=== PATIENT | male | born 1945 | race Caucasian/White ===

== ENCOUNTER 2017-01-30 06:44 | Day surgery (SDC) | payer MEDICARE ==
[~2017-01-30] VITALS: Ht 180.3 cm; Wt 86.2 kg
--- NOTE | ~2017-01-30 | OP ---
PATIENT NAME: JAVI MORELOS MEDICAL RECORD: [id number] :43 LOCATION:D.OPS ADMISSION DATE: SURGEON: SANTOS JOSEPH MD DATE OF OPERATION: 01/30/2017 DATE OF OPERATION: 01/30/2017 PREOPERATIVE DIAGNOSES: 1. End-stage renal disease. 2. Malfunctioning left upper extremity AV fistula. 3. Hypertension. 4. Diabetes mellitus. 5. Organic heart disease. POSTOPERATIVE DIAGNOSES: 1. End-stage renal disease. 2. Malfunctioning left upper extremity AV fistula. 3. Hypertension. 4. Diabetes mellitus. 5. Organic heart disease. PROCEDURE: Left upper extremity AV jump graft between proximal antecubital fistula and left axillary vein (4 x 7 mm tapered graft). SURGEON: Santos Joseph MD. REPORT OF PROCEDURE: The patient's left upper extremity was prepped and draped in sterile fashion. Ultrasound was used to inspect the patient's vein and fistula. The proximal fistula was popping and appeared to be flowing appropriately but it branched off and had multiple very small branches coming up through the cephalic region, which is causing him not to function appropriately. The patient had a large axillary vein. We went ahead and made an incision longitudinally in the upper medial arm and dissected out the patient's axillary vein, which was quite large in caliber. We put vessel loops proximally and distally around this and left this in place, we then made a longitudinal incision overlying the patient's proximal fistula just above the antecubital space. We dissected down through the fistula and noted that it had a good palpable thrill. We tied off the branches to this fistula and placed a vessel loop proximally. A 4 x 7 mm tapered graft was inserted and tunneled between these 2 incisions sites. The 4-mm side was cut with a beveled tip. We then transected the artery after a total of 5000 mL of heparin was given IV. An end-to-end anastomosis was performed of the graft to the fistula using a 7-0 Prolene. There was good approximation of the tissue and there was good flow through the vessel. We then cut the 7-mm end of the catheter with a beveled tip and performed an end-to-side anastomosis after a venotomy was made in the proximal axillary vein. This was again performed with a running 7-0 Prolene. At the conclusion of this, we had good pulsatile thrill flow through the vessel and a palpable thrill proximally in the fistula. There was no sign of any active bleeding. We then irrigated out the wound with normal saline. The subcutaneous tissues were reapproximated with interrupted 3-0 Vicryls and the skin was closed with running subcutaneous 5-0 Monocryl. COMPLICATIONS: None. CONDITION: Stable. OPERATIVE REPORT [id number] JAVI MORELOS ANESTHESIA: General endotracheal and local. BLOOD LOSS: 50 mL. TRANSINT:[id number] Voice Confirmation ID: [id number] DOCUMENT ID: [id number] SANTOS JOSEPH MD CC: MARILUZ RUBY MD [id number] DICTATION DATE: 01/30/17 1147 PAYROLL PROCESSOR: 01/30/17 2108 [facility] 01/30/17 [address] [place] [address]
[2017-01-30 07:50] LABS: BASOPHILS 0.8 % (0-2); EOSINOPHILS 5.6 % (0-7); HEMATOCRIT 39.9 % (42.0-54.0); IMMATURE GRANULOCYTES 0.3 % (0-5); LYMPHOCYTES 27.2 % (15-50); MCH 29.9 pg (26.0-34.0); MCHC 30.1 g/dL (31.0-37.0); MCV 99.3 fL (80.0-100.0); MEAN PLATELET VOLUME 9.3 fL (7.4-10.4); MONOCYTES 11.9 % (2-11); NEUTROPHILS 54.2 % (40-80); PLATELET COUNT 348 10x3/uL (130-400); RBC 4.02 10x6/uL (4.20-6.10); RDW 14.7 % (11.5-14.5); WBC 11.3 10x3/uL (4.8-10.8)
[2017-01-30 07:59] LABS: INR 1.04 (0.85-1.17); PROTIME 13.4 SECONDS (11.6-15.0)
[2017-01-30 08:00] LABS: APTT 31.8 SECONDS (22.8-39.4)
[2017-01-30 08:01] LABS: ANION GAP 13.6 mmol/L (8-16); CALCIUM 9.1 mg/dL (8.5-10.1); CARBON DIOXIDE 27.9 mmol/L (21.0-32.0); CREATININE - SERUM 4.5 mg/dL (0.6-1.3); POTASSIUM - SERUM 4.5 mmol/L (3.5-5.1)
[2017-01-30 08:48] VITALS: Ht 180.3 cm; Wt 86.2 kg
[2017-01-30] MEDS ORDERED: METOPROLOL TAR100 M1 PO (08:55)
[2017-01-30] MEDS ORDERED: FLOMAX0.4 MG PO (08:56)
[2017-01-30] MEDS ORDERED: LIPITOR10 MG PO (08:56)
[2017-01-30] MEDS ORDERED: RENVELA800 MG PO (08:57)
[2017-01-30] MEDS ORDERED: RESTORIL22.5 MG PO (08:57)
[2017-01-30] MEDS ORDERED: BAYER CHEWABLE81 MG PO (08:58)
[2017-01-30] MEDS ORDERED: RENA-VITE TABL0.8 MG PO (08:58)
[2017-01-30] MEDS ORDERED: ULTRAM50 MG PO (08:59)
[2017-01-30] MEDS ORDERED: MELATONIN 3 MG1 TAB PO (08:59)
[2017-01-30] MEDS ORDERED: ZOFRAN4 MG PO (08:59)
[2017-01-30] MEDS ORDERED: COLACE100 MG PO (09:00)
[2017-01-30] MEDS ORDERED: PROAIR HFA8.5 GM INH (09:00)
[2017-01-30] MEDS ORDERED: ZOLOFT25 MG PO (09:01)
[2017-01-30] MEDS ORDERED: HYDROCODONE-APA1 TAB PO (11:38)
== END 2017-01-30 13:30 | disposition home or self-care (01) ==
LOC: D.OPS 06:44
PROVIDERS: Surgery
DX: T82.898A Other specified complication of vascular prosthetic devices, implants and grafts, initial encounter (principal); E11.22 Type 2 diabetes mellitus with diabetic chronic kidney disease; I13.11 Hypertensive heart and chronic kidney disease without heart failure, with stage 5 chronic kidney disease, or end stage renal disease; N18.6 End stage renal disease; Z99.2 Dependence on renal dialysis; Z01.812 Encounter for preprocedural laboratory examination

== ENCOUNTER 2017-08-04 15:54 | Inpatient (IN) | payer MEDICARE, MEDICAID ==
[~2017-08-04] VITALS: Ht 180.3 cm; Wt 91.1 kg
--- NOTE | ~2017-08-04 | HEMODYNAMI ---
PATIENT:JAVI MORELOS MEDICAL RECORD: [id number] : 43 LOCATION:[place] [address] ADMISSION DATE: 08/04/17 Generatedon:08/05/201715:32 Patient name: JAVI MORELOS Patient #: [id number] SSN: : Date of study: 08/05/2017 Page: Of Hemodynamic Procedure Report Patient Data Patient Demographics Procedure consent was obtained First Name: JAVI Gender: Male Last Name: TAMY : 1945 Patient #: [id number] Age: 71 year(s) Race: Unknown Additional ID: [id number] Contact details [address]: [address] [place] [address] State: [place] City: [place] Zip code: [address] Past Medical History Allergies: No known allergies Admission Admission Data Admission Date: 08/04/2017 Admission Time: 23:21 Room #: [facility] Procedure Procedure Types Cath Procedure Peripheral Cath Diagnostic Procedure Cath Peripheral Fistula Mechanical Thrombectomy Procedure Description Procedure Date Procedure Date: 08/05/2017 Procedure Start Time: 15:02 Procedure Staff Name Function Michael Lynch MD Performing Physician Bibiana Hutchins RT Monitor Kong Jeronimo RT Scrub Alexus Meier RN Nurse Bibiana Hutchins RT Plastic Process Technician Procedure Data Cath Procedure Fluoroscopy Diagnostic fluoroscopy Total fluoroscopy Time: 3.6 time: 3.6 min min Diagnostic fluoroscopy Total fluoroscopy dose: 45 dose: 45 mGy mGy Contrast Material Contrast Material Type Amount (ml) Isovue 300 65 Procedure Medications Medication Administration Route Dosage Lidocaine 1% added to field 20 Oxygen NC 3 l/min Heparin Flush Bag added to field 2 bags (1000units/500ml NS) Fentanyl I.V. 50 mcg Versed I.V. 1 mg Fentanyl I.V. 50 mcg Versed I.V. 1 mg Hemodynamics Rest Heart Rate: 66 (bpm) Snapshots Pre Cath Intra NCS Post Cath Vital Signs Time Heart Resp SPO2 etCO2 NIBP (mmHg) Rhythm Pain Sedation Rate (ipm) (%) (mmHg) Status Level (bpm) 14:17:55 62 13 92 8.2 Measuring NSR 0 (11) 10(A) , No pain 14:18:25 73 18 98 8.9 129/66(104) NSR 0 (11) 10(A) , No pain 14:22:41 64 13 99 8.9 144/73(113) NSR 0 (11) 10(A) , No pain 14:27:03 70 10 98 9.7 134/70(105) NSR 0 (11) 10(A) , No pain 14:31:26 63 18 98 18.7 142/66(106) NSR 0 (11) 10(A) , No pain 14:36:25 59 24 96 0 Measuring NSR 0 (11) 10(A) , No pain 14:36:35 60 20 95 0 127/61(97) NSR 0 (11) 10(A) , No pain 14:40:55 65 14 97 0 132/66(112) NSR 0 (11) 10(A) , No pain 14:45:15 62 14 95 2.9 144/68(118) NSR 0 (11) 10(A) , No pain 14:50:14 59 13 97 0 Measuring NSR 0 (11) 10(A) , No pain 14:50:16 62 13 97 0 141/62(102) NSR 0 (11) 10(A) , No pain 14:55:09 61 9 98 5.9 139/67(121) NSR 0 (11) 10(A) , No pain 14:59:31 62 13 98 0 154/72(108) NSR 0 (11) 10(A) , No pain 15:03:58 65 16 97 14.2 143/68(115) NSR 0 (11) 10(A) , No pain 15:08:24 61 10 95 132/67(114) NSR 0 (11) 10(A) , No pain 15:12:42 60 18 94 35.1 131/61(97) NSR 0 (11) 10(A) , No pain 15:17:04 68 12 95 39.6 123/49(113) NSR 0 (11) 10(A) , No pain 15:21:22 63 18 95 0 113/58(92) NSR 0 (11) 10(A) , No pain 15:25:36 64 8 94 14.9 112/57(77) NSR 0 (11) 10(A) , No pain 15:29:48 64 14 93 26.2 132/64(104) NSR 0 (11) 10(A) , No pain Medications Time Medication Route Dose Verified Delivered Reason Notes Effe ctiveness by by 13:47:26 Lidocaine 1% added 20ml Alexus Rodriguez for local to vial Hardeep Lynch anesthetic field DELISA SPIVEY 13:47:57 Oxygen NC 3 Alexus used for l/min Hardeep Lynch partition assembler MD 13:48:12 Heparin Flush added 2 Alexus used for Bag to bags Hardeep Lynch procedure (1000units/500ml field RN NS) 15:04:46 Fentanyl I.V. 50 Michael Vaughan for mcg Lynch Hardeep RN sedation 15:04:56 Versed I.V. 1 mg Michael Vaughan for Lynch Hardeep RN sedation 15:09:47 Fentanyl I.V. 50 Michael Vaughan for mcg Lynch Hardeep RN sedation 15:09:55 Versed I.V. 1 mg Michael Vaughan for Lynch Hardeep RN sedation Procedure Log Time Note 13:46:40 Use device set IR Diagnostic 13:46:41 Sterile Angiographic Pack opened to sterile field. 13:46:43 Bag Decanter (2002S) opened to sterile field. 13:47:04 PERCUTANEOUS ENTRY 19GA needle opened to sterile field. 13:47:06 St Eliseo 6FR 5cm sheath opened to sterile field. 13:47:08 Cook DOC .035 guide wire opened to sterile field. 13:47:26 Lidocaine 1% 20ml vial added to field was administered by Michael Lynch MD; for local anesthetic; 13:47:57 Oxygen 3 l/min NC was administered by Michael Lynch MD; used for procedure; 13:48:12 Heparin Flush Bag (1000units/500ml NS) 2 bags added to field was administered by Michael Lynch MD; used for procedure; 14:14:54 Time tracking: Regular hours 14:15:39 Plan of Care:Hemodynamics will remain stable., Cardiac rhythm will remain stable., Comfort level will be maintained., Respiratory function will remain adequate., Patient/ family verbilizes understanding of procedure., Procedure tolerated without complication., Recovers from procedure without complications.. 14:15:56 Patient received from Med II to IR Alert and oriented. Tansferred to table in Supine position. 14:15:59 Correct patient and procedure confirmed by team. 14:16:03 Signed procedure consent form obtained from patient. 14:16:05 ECG and BP/O2 sat monitors applied to patient. 14:16:06 Vital chart was started 14:16:07 Baseline sample Acquired. 14:16:08 Full Disclosure recording started 14:16:09 - 14:16:15 H&P Date Dictated: 08/05/2017 Emergent; H&P N/A. 14:16:17 Pre-procedure instructions explained to patient. 14:16:17 Pre-op teaching completed and patient verbalized understanding. 14:16:20 Family in waiting room. 14:16:23 Patient NPO since Breakfast. 14:18:24 Patient allergic to No known allergies 14:18:28 Is the patient allergic to Iodine/contrast media? No. 14:18:31 Is patient on blood thinner?No 14:18:34 Patient diabetic? No. 14:18:36 - 14:18:38 ----Pre-sedation anethsthesia assessment.---- 14:18:43 Previous problem with sedation/anesthesia? No ? 14:19:08 Snore? Yes 14:19:13 Sleep apnea? No 14:19:25 Deviated septum? No 14:19:33 Opens mouth fully? Yes 14:19:41 Sticks out tongue? Yes 14:19:51 Airway obstruction? No ? 14:20:02 Dentures? Yes in secure 14:20:25 IV patent on arrival in Rt subclavian with 0.9% NaCl at KVO. 14:20:32 Left Arm area was prepped with chlora-prep and draped in sterile fashio n 14:20:36 Alarms reviewed 14:20:46 Sharps counted by scrub and verified 14:20:58 - 15:00:32 Physician arrived 15:01:45 --------ALL STOP TIME OUT------ 15::46 Final Timeout: patient, procedure, and site verified with staff and physician. All members of the team are in agreement. 15:02:02 Sedation plan: IV Moderate Sedation Medication:Versed, Fentanyl 15:02:08 Procedure started. 15:02:15 Local anesthetic to left arm with Lidocaine 1% by Michael Lynch MD.INITIAL ACCESS ONLY 15:04:46 Fentanyl 50 mcg I.V. was administered by Alexus Meier RN; for sedation ; 15:04:56 Versed 1 mg I.V. was administered by Alexus Meier RN; for sedation; 15:09:47 Fentanyl 50 mcg I.V. was administered by Alexus Meier RN; for sedation ; 15:09:55 Versed 1 mg I.V. was administered by Alexus Meier RN; for sedation; 15:11:58 St Eliseo 6FR 5cm sheath opened to sterile field. 15:15:34 Terumo ANGLE 180L glide wire opened to sterile field. 15:15:43 TORQUE DEVICE PLASTIC .038 ( TD01) opened to sterile field. 15:17:05 Venogram performed 15:27:59 Procedure ended.(Physican Out) 15:28:13 Fluoroscopy time 03.60 minutes. 15:28:19 Fluoroscopy dose: 45 mGy 15:28:19 Flurop Dose total: 45 15:28:24 Contrast amount:Isovue 300 65ml. ::28 Procedure and supply charges have been captured, reviewed, submitted an d are correct. 15:29:23 Report given to Med II. 15:32:01 Vital chart was stopped Device Usage Item Name Manufacture Quantity Catalog Hospital Part Current Minimal Lot# / Number Charge Number Stock Stock Serial# Code Sterile Cardinal 1 [id number] 5 Angiographic Health Pack Bag Decanter Microtek 1 [id number] 5 () Medical Inc. PERCUTANEOUS Cook Medical 1 [id number] [id number] [id number] ENTRY [address] needle [address] El[facility]o 6FR [employer] Eliseo 2 [id number] 611339 603588 5 [id number] 5cm sheath [id number] Cook DOC Cook Medical 1 [id number] 119975 507308 5 [id number] .035 guide wire Terumo ANGLE Terumo 1 [id number] 600747 976784 014902 5 180L glide wire TORQUE [place] 1 TD01 756090 991872 791099 5 DEVICE Scientific PLASTIC .038 ( TD01) Signature Audit [place] Stage Time Signature Unsigned Intra-Procedure 08/05/2017 Bibiana Hutchins 3:31:58 PM RT(R) Signatures Monitor : Bibiana Hutchins RT Signature : Date : Time : [address] [address]
[~2017-08-04 15:54] MED LIST: BAYER CHEWABLE81 MG PO; COLACE100 MG PO; FLOMAX0.4 MG PO; HYDROCODONE-APA1 TAB PO; LIPITOR10 MG PO; MELATONIN 3 MG1 TAB PO; METOPROLOL TAR100 M1 PO; PROAIR HFA8.5 GM INH; RENA-VITE TABL0.8 MG PO; RENVELA800 MG PO; RESTORIL22.5 MG PO; ULTRAM50 MG PO; ZOFRAN4 MG PO; ZOLOFT25 MG PO
--- NOTE | 2017-08-05 00:30 | NUR ---
PT ARRIVED FROM ER VIA WHEELCHAIR, ALERT AND ORIENTED TO ROOM AND CALL LIGHT. CALL LIGHT IN REACH, WILL CONTINUE PLAN OF CARE.
--- NOTE | 2017-08-05 00:36 | NUR ---
PT RECEIVED VIA WHEELCHAIR FROM ER, AWAKE, ALERT, BEING DIFFICULT WITH HIS NURSE YASMIN HERNÁNDEZ. PT STATES HE IS UNABLE TO ANSWER ANY QUESTIONS R/T HIS HOME MEDICATIONS FAR WHAT MEDICATIONS HE TAKES, AND IS UNABLE TO TELL US WHEN THE LAST DOSE OF ANY OF HIS MEDICATIONS WERE TAKEN. NO NEEDS AT THIS TIME. PT WILL BE HELD NPO ORDERED. WILL CONTINUE TO MONITOR PT CLOSELY.
--- NOTE | 2017-08-05 01:02 | NUR ---
PT ARRIVED TO FLOOR. BREATHING EVEN AND UNLABORED. BED IN LOW POSITION, CALL LIGHT WITHIN REACH. WILL CTM.
[2017-08-05 06:20] VITALS: BMI 30.7
[2017-08-05 07:00] VITALS: BP 149/61
--- NOTE | 2017-08-05 09:57 | NUR ---
RESTS IN BED WITHOUT NEEDS OR C/O. CALL LIGHT IN REACH. WILL CONT. PLAN OF CARE.
[2017-08-05 10:46] LABS: APTT 30.5 SECONDS (22.8-39.4); INR 1.1 (0.85-1.17); PROTIME 13.8 SECONDS (11.6-15.0)
[2017-08-05 10:50] LABS: ANION GAP 13.8 mmol/L (8-16); CARBON DIOXIDE 28.3 mmol/L (21.0-32.0); CREATININE - SERUM 7.9 mg/dL (0.6-1.3); POTASSIUM - SERUM 5.1 mmol/L (3.5-5.1)
[2017-08-05 11:00] VITALS: BP 115/51
[2017-08-05 11:04] LABS: BASOPHILS 0.2 % (0-2); EOSINOPHILS 4.3 % (0-7); HEMATOCRIT 33.7 % (42.0-54.0); HEMOGLOBIN 10.1 g/dL (13.5-17.5); IMMATURE GRANULOCYTES 0.3 % (0-5); LYMPHOCYTES 20.5 % (15-50); MCH 31.7 pg (26.0-34.0); MCV 105.6 fL (80.0-100.0); MEAN PLATELET VOLUME 9.8 fL (7.4-10.4); MONOCYTES 11.3 % (2-11); NEUTROPHILS 63.4 % (40-80); PLATELET COUNT 386 10x3/uL (130-400); RBC 3.19 10x6/uL (4.20-6.10); RDW 13.7 % (11.5-14.5); WBC 12.4 10x3/uL (4.8-10.8)
[2017-08-05 14:54] VITALS: Ht 180.3 cm; Wt 91.1 kg
[2017-08-05 15:59] VITALS: BP 144/62
[2017-08-05 16:08] VITALS: BP 133/59
--- NOTE | 2017-08-05 17:55 | NUR ---
PATIENT IN BED RESTING AT THIS TIME. NO SIGNS OR SYMPTOMS OF DISTRESS NOTED. CALL LIGHT AND WATER WITHIN REACH. NO COMPLAINTS OR CONCERNS VOICED AT THIS TIME.
--- NOTE | 2017-08-05 19:54 | NUR ---
RESUMED CARE OF PT, LYING IN BED RESPIRATIONS EVEN AND UNLABORED ON 2LPM VIA NC. 72 SR ON TELEMETRY. PLAN OF CARE DISCUSSED. CALL LIGHT IN REACH. WILL CONTINUE TO MONTIOR. SEE NURSE ASSESSMENT.
[2017-08-05 21:14] VITALS: BP 149/63
[2017-08-06 01:16] VITALS: BP 136/53
[2017-08-06 05:39] VITALS: BP 148/61
[2017-08-06 07:49] VITALS: BP 156/67
[2017-08-06 12:05] VITALS: BP 150/70
[2017-08-06 15:45] VITALS: BP 137/56
--- NOTE | 2017-08-06 19:44 | NUR ---
RESUMED CARE OF PT, LYING IN BED RESPIRATIONS EVEN AND UNLABORED ON 2LPM VIA NC. 64 CAF ON TELEMETRY. PLAN OF CARE DISCUSSED. CALL LIGHT IN REACH. WILL CONTINUE TO MONITOR. SEE NURSE ASSESSMENT.
[2017-08-06 20:21] VITALS: BP 118/54
[2017-08-07 00:41] VITALS: BP 126/63
[2017-08-07 04:29] VITALS: BP 126/57
--- NOTE | 2017-08-07 05:02 | NUR ---
SNUFF GRINDER AT BEDSIDE, CALL LIGHT IN REACH. WILL CONTINUE WITH PLAN OF CARE.
--- NOTE | 2017-08-07 05:04 | NUR ---
LURER AT BEDSIDE, CALL LIGHT IN REACH. WILL CONTINUE WITH PLAN OF CARE.
--- NOTE | 2017-08-07 07:06 | NUR ---
NO CHANGES FROM PREVIOUS ASSESSMENT, CALL LIGHT IN REACH. NPO AWAITING SURGERY.
--- NOTE | 2017-08-07 07:30 | NUR ---
RESTING QUIETLY EYES CLOSED RESP UNLABORED NAD NOTED
[2017-08-07 08:20] LABS: BASOPHILS 0.3 % (0-2); EOSINOPHILS 6.4 % (0-7); HEMATOCRIT 30.6 % (42.0-54.0); HEMOGLOBIN 9.5 g/dL (13.5-17.5); IMMATURE GRANULOCYTES 0.2 % (0-5); LYMPHOCYTES 21.6 % (15-50); MCH 32.5 pg (26.0-34.0); MCV 104.8 fL (80.0-100.0); MEAN PLATELET VOLUME 9.4 fL (7.4-10.4); MONOCYTES 12.6 % (2-11); NEUTROPHILS 58.9 % (40-80); PLATELET COUNT 364 10x3/uL (130-400); RBC 2.92 10x6/uL (4.20-6.10); RDW 13.7 % (11.5-14.5); WBC 9.4 10x3/uL (4.8-10.8)
[2017-08-07 08:31] LABS: APTT 33.4 SECONDS (22.8-39.4); INR 1.06 (0.85-1.17); PROTIME 13.4 SECONDS (11.6-15.0)
[2017-08-07 08:35] LABS: ANION GAP 15.5 mmol/L (8-16); CALCIUM 8.2 mg/dL (8.5-10.1); CARBON DIOXIDE 25.3 mmol/L (21.0-32.0); CREATININE - SERUM 9.3 mg/dL (0.6-1.3); POTASSIUM - SERUM 4.8 mmol/L (3.5-5.1)
[2017-08-07 08:43] VITALS: BP 136/52
--- NOTE | 2017-08-07 09:28 | NUR ---
Dialysis Coordinator: Vij[facility] T[facility] @ 11:30. EDGAR SMITH.
--- NOTE | 2017-08-07 10:00 | NUR ---
UNABLE TO ACCESS SHIFT ASSESSMENT AT THIS TIME PT AAOX4 RESP UNLABORED BBS DIMINISHED O2 ON 2LPM NC GENERALIZED EDEMA NOTED SKIN W/D COLOR WNL DRSG C/D/I TO LT UPPER ARM ABDOMEN SOFT BS + SALINE LOCK INTACT TO RT SHOULDER WITH OCCLUSIVE DRSG INTACT SITE FREE OF REDNESS OR EDEMA
--- NOTE | 2017-08-07 10:44 | NUR ---
Nutrition follow-up: Pt NPO for thrombectomy today PO intake of renal diet has been 100% of meals Labs reviewed +BM Wt: 201# PO intake has been good. RDN following.
[2017-08-07 13:05] VITALS: BP 149/58
[2017-08-07 16:45] VITALS: BP 143/75
--- NOTE | 2017-08-07 19:28 | NUR ---
PRE-OP MEDICATIONS GIVEN WITH A SMALL SIP OF WATER. CHANGED PT INTO HOSPITAL GOWN AND INFORMED MT THAT PTS TELEMETRY IS GOING TO BE OFF DUE TO PT GOING TO OR.
--- NOTE | 2017-08-07 22:42 | NUR ---
PT STILL IN O.R.
--- NOTE | 2017-08-07 23:14 | NUR ---
RECIEVED REPORT FROM RECOVERY NURSE, INFORMED THAT PT WILL BE RETURNING TO THE FLOOR IN APPROXIMATELY 10 MINUTES.
--- NOTE | 2017-08-07 23:45 | NUR ---
RECIEVED TO ROOM 2118 FROM O.R. VIA BED, PT ALERT, VITALS STABLE. RIGHT CHEST HEMOSPLIT WITH PRESSURE DRSG INTACT, DRSG TO LEFT ARM FISTULA ALSO INTACT. SANDWHICH TRAY AND FRESH ICE WATER GIVEN TO PT, PT C/O PAIN TO LEFT ARM AND RIGHT CHEST, RATES PAIN AT A 7 ON PAIN SCALE. CALL PLACED TO SEBASTIAN ALVAREZ APN AXLE POLISHER FOR DR MARTE FOR FURTHER ORDERS.
--- NOTE | 2017-08-07 23:45 | NUR ---
AFTER ARRIVAL TO PACU PATIENT BEGAN TO BLEED FROM BOTH FISTULA ACCESS AND HEMOSPLIT. DESPITE HOLDING PRESSURE, BLEEDING DID NOT STOP. DR MUNSON NOTIFIED, GAVE ORDERS TO USE FIBULAR TO STOP BLEEDING. IT WORKED, PATIENT WAS CLEANED AND ALL DRESSINGS CHANGED. 10 MIN LATER BLEEDING HAD RESUMED. DR MUNSON CALLED AGAIN. ORDERS RECEIVED TO PLACE PRESSURE DRESSING ON SITES. STATED THAT PATIENT IS VOLUME OVERLOADED AND WILL CONTINUE TO BLEED UNTIL DIALYSIS IS PERFORMED. DELISA RICHARDS ON MED II GIVEN REPORT AND INFORMED THAT DR MUNSON WAS AWARE OF BLEEDING.
--- NOTE | 2017-08-07 23:57 | NUR ---
SPOKE WITH SEBASTIAN ALVAREZ, DUE TO POTASSIUM BEING 4.8, NO ORDERS TO DIALIZE TONIGHT, WILL PLACE ORDERS TO HAVE DIALYSIS IN AM.
[2017-08-08 00:16] VITALS: BP 168/80
--- NOTE | 2017-08-08 01:14 | NUR ---
DRSG TO RIGHT CHEST HEMOSPLIT COMPLETELY SATURATED AND BLOOD LEAKING OUT FROM UNDERNEATH BANDAGE, REMOVED ORIGINAL BANDAGE AND REPLACED WITH PRESSURE DRSG USING 2 PKTS OF 4X4, 1 ABD PAD AND HELD DOWN WITH MICRO FOAM TAPE. REPOSITIONED IN BED, H.O.B AT 90 DEGREES, BILATERAL ARMS ELEVATED ON PILLOWS.
--- NOTE | 2017-08-08 02:56 | NUR ---
PT BACK FROM SURGERY, RESTING COMFORTABLY AT THIS TIME. CONTINUE TO MONITOR CLOSELY.
[2017-08-08 05:31] VITALS: BP 145/76
[2017-08-08 08:09] VITALS: BP 142/46
--- NOTE | 2017-08-08 10:45 | NUR ---
DIALYSIS COMPLETED WITH 1500CC OP. CLEAR AND YELLOW.
[2017-08-08 12:02] VITALS: BP 133/47
--- NOTE | 2017-08-08 12:19 | NUR ---
LEAVING FOR DIALYSIS BY W/C. WILL CONT. PLAN OF CARE.
--- NOTE | 2017-08-08 13:48 | NUR ---
REPORT CALLED TO ID. TRANSPORTATION PROVIDED.
--- NOTE | 2017-08-08 16:13 | NUR ---
BACK FROM DIALYSIS. [facility].
--- NOTE | 2017-08-08 16:20 | NUR ---
IV AND TELEMETRY DCD. DC PLANS GIVEN. UNDERSTANDING VOICED. ESCORTED TO CAR BY W/C.
--- NOTE | 2017-08-08 18:44 | NUR ---
LATE ENTRY- PRIMARY NURSE, PRETTY, CALLED STATING PATIENT WOULD BE DISCHARGED TODAY. CM ADVISED HER TO CALL REPORT SO THAT FACILITY WOULD BE AWARE. PATIENT FOR DISCHARGE TO [facility] AFTER HEMODIALYSIS. LOUIS TELEPHONED [phone]. SPOKE WITH GERONIMO. PLAN DISCHARGE THIS PM AFTER 1600. [facility] PROVIDED TRANSPORTATION. LOUIS FAXED CLINICAL TO [phone]. GERONIMO STATED PATIENT WOULD BE ADMITTED TO A"REGULAR" BED/ PUMPER GAGER APPRENTICE. PRIMARY NURSE CALLED REPORT EARLIER.
== END 2017-08-08 16:21 | DRG 252 ==
LOC: D.ER 15:54 → D.ICU 21:02 → D.M2 23:21
PROVIDERS: Specialist; Surgery; ADMIT Internal Medicine Nephrology
PROC: 05CY3ZZ Extirpation of Matter from Upper Vein, Percutaneous Approach (ICD-10-PCS; principal; 2017-08-05 15:00)
PROC: 03CY0ZZ Extirpation of Matter from Upper Artery, Open Approach (ICD-10-PCS; 2017-08-07 13:45)
DX: T82.868A Thrombosis due to vascular prosthetic devices, implants and grafts, initial encounter (principal); N18.6 End stage renal disease; I12.0 Hypertensive chronic kidney disease with stage 5 chronic kidney disease or end stage renal disease; Y83.8 Other surgical procedures as the cause of abnormal reaction of the patient, or of later complication, without mention of misadventure at the time of the procedure; Z99.2 Dependence on renal dialysis; I25.10 Atherosclerotic heart disease of native coronary artery without angina pectoris; Z95.1 Presence of aortocoronary bypass graft; E78.5 Hyperlipidemia, unspecified

== ENCOUNTER 2017-08-21 09:06 | Day surgery (SDC) | payer MEDICARE ==
[~2017-08-21] VITALS: Ht 180.3 cm; Wt 90.9 kg
--- NOTE | ~2017-08-21 | OP ---
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 OPERATION PERFORMED: Implantation of new left brachial axillary PTFE Propaten AV graft. SURGEON: Antonio Kaplan MD ANESTHESIA: General with LMA per SALES SUPERINTENDENT. PREOPERATIVE NOTE: This 71-year-old white male patient from [place] on dialysis in [place] for some time with a left brachiocephalic AV fistula. Last summer, he had that converted to a median cubital vein fistula PTFE hybrid to the axillary vein. That functioned well until this past month of July when it thrombosed. The interventional radiologist attempted open it and were totally unsuccessful. Dr. Zamora subsequently performed a percutaneous thrombectomy successfully; however, the graft thrombosed soon thereafter. I saw him earlier this week at [facility] and replaced his HemoSplit tunneled dialysis catheter, which had become displaced with the Dacron cuff dislodged outside the subcutaneous tunnel. His fistula, which I was told was feasible was actually thrombosed and I recommended that patient have this fistula or graft just replaced and he is brought to the operating room for that today. He has a functioning right tunneled dialysis catheter now. DESCRIPTION OF PROCEDURE: Under anesthesia, the patient was prepped and draped in a sterile manner and I used ultrasound to examine the previous graft. The arterial anastomosis appeared to be wide open and there was pulsation and some flow in the fistula near the arterial anastomosis and I believe there is still some venous runoff present. There was no flow within the PTFE segment. The venous anastomosis actually looked wide open and I did not see any technical problems. I made an incision over the axilla and exposed the axillary vein above the prior anastomosis, it was dissected from the surrounding structures and controlled with Silastic loops. I made another incision just above the antecubital space and exposed the cephalic vein fistula there and exposed it on proximally to the anastomosis to the PTFE segment. The patient was systemically heparinized with 3000 units of heparin and after an adequate circulation time, the fistula was occluded with an atraumatic vascular clamp just proximal to the arterial anastomosis of the fistula just above the PTFE to cephalic vein anastomosis was clamped and divided and then suture ligated with 2-0 Vicryl. I chose a 6-mm straight standard wall thickness [place] Propaten PTFE graft and anastomosed it end-to-end to the arterialized cephalic vein just above the level of the antecubital space. The suture line proved to be hemostatic. The graft was then placed in a subcutaneous tunnel, which I created as superficially as possible and lateral to the previously placed graft up in the axilla, that new graft was beveled, again flushed with heparinized saline. The vein was opened OPERATIVE REPORT [id number] JAVI MORELOS and flushed with heparinized saline and the graft anastomosed end of graft to side of vein with continuous running 6-0 Prolene. When that suture line was completed, it was also hemostatic and when the occluding clamps and loops were released, excellent flow developed immediately in the new fistula or AV graft. The patient's heparin was partially reversed with 20 mg of protamine. The wounds were irrigated with Ancef/gentamicin solution and infiltrated with 0.25% Marcaine without epinephrine. The wounds were closed with interrupted inverted 3-0 Vicryl and running intracuticular 4-0 Monocryl and Dermabond glue. They were dressed with Maxorb Ag, Tegaderm and Cavilon skin prep. At this point, the patient was awakened and under satisfactory condition with a good functioning graft taken to the recovery room. PLAN: The patient will be discharged to home or to his nursing on this afternoon. I will plan to see him back in my office next week. He will continue all of the same medications. As of this coming Thursday08/24/2017, he is to start on Plavix 75 mg once a day. I have done that electronic prescribing from the recovery room. He will continue his other home medications, diet, and activities as previously. He will continue his same established dialysis schedule. TRANSINT:[id number] Voice Confirmation ID: [id number] DOCUMENT ID: [id number] ANTONIO KAPLAN MD at 1496 CC: CRISELDA VIEYRA MD [id number] DICTATION DATE: 08/21/17 0286 DRAWING INSTRUCTOR: 08/21/17 1753 DEP SDC 08/21/17 [facility] [address] [facility] [place] [address]
[2017-08-21 10:39] LABS: ANION GAP 13.2 mmol/L (8-16); CALCIUM 9.2 mg/dL (8.5-10.1); CARBON DIOXIDE 27.8 mmol/L (21.0-32.0); CREATININE - SERUM 4.2 mg/dL (0.6-1.3)
[2017-08-21 10:44] LABS: APTT 28.9 SECONDS (22.8-39.4); INR 0.99 (0.85-1.17); PROTIME 12.7 SECONDS (11.6-15.0)
[2017-08-21 10:52] LABS: BASOPHILS 0.5 % (0-2); EOSINOPHILS 4.1 % (0-7); HEMATOCRIT 29.5 % (42.0-54.0); HEMOGLOBIN 8.8 g/dL (13.5-17.5); IMMATURE GRANULOCYTES 0.9 % (0-5); LYMPHOCYTES 25.1 % (15-50); MCH 32.6 pg (26.0-34.0); MCHC 29.8 g/dL (31.0-37.0); MCV 109.3 fL (80.0-100.0); MEAN PLATELET VOLUME 9.7 fL (7.4-10.4); MONOCYTES 11.9 % (2-11); NEUTROPHILS 57.5 % (40-80); PLATELET COUNT 417 10x3/uL (130-400); RDW 14.7 % (11.5-14.5)
[2017-08-21 11:27] VITALS: BP 143/63; Ht 180.3 cm; Wt 90.9 kg
== END 2017-08-21 18:10 | disposition home or self-care (01) ==
LOC: D.OPS 09:06
PROVIDERS: Internal Medicine Nephrology
DX: I13.2 Hypertensive heart and chronic kidney disease with heart failure and with stage 5 chronic kidney disease, or end stage renal disease (principal); N18.6 End stage renal disease; Z99.2 Dependence on renal dialysis; Z95.1 Presence of aortocoronary bypass graft; I25.10 Atherosclerotic heart disease of native coronary artery without angina pectoris; Z01.812 Encounter for preprocedural laboratory examination

== ENCOUNTER 2017-12-10 12:36 | Inpatient (IN) | payer MEDICARE ==
[~2017-12-10] VITALS: Ht 180.3 cm; Wt 91.5 kg
--- NOTE | ~2017-12-10 | OP ---
PATIENT NAME: JAVI MORELOS MEDICAL RECORD: [id number] :44 LOCATION:D. 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 OPERATION PERFORMED: Percutaneous mechanical thrombolysis with AngioJet and balloon maceration and fistulogram left arm AV graft and mechanical thrombolysis with Trerotola device and balloon angioplasty of arterial anastomotic stenosis. Also, ultrasound-guided cannulation of the right internal jugular vein with venogram and ultrasound-guided access of the left internal jugular vein with superior vena cavogram and insertion of a Trialysis non-tunneled central venous catheter. SURGEON: Antonio Kaplan MD ANESTHESIA: General per SALMON GILLNET VESSEL OPERATOR with LMA. PREOPERATIVE NOTE: Mr. Morelos is a middle-aged -Tong[place] male with end-stage renal disease, who has been dialyzing for a long period of time with a left arm AV fistula, actually I think this was a brachiocephalic AV fistula, which was diverted with a graft to the axillary vein. He has good deal of aneurysmal deterioration and has thrombosed the access. Dr. Ruby attempted to reopen this with a procedure at [facility], but found the clot load in the aneurysmal areas to be more than could be handled and so he was admitted to the hospital. He is brought to the operating room at this time to try again a percutaneous procedure, but he possibly may require open thrombectomy and revision and insertion of a dialysis catheter. DESCRIPTION OF PROCEDURE: Under general anesthesia with LMA per SALMON GILLNET VESSEL OPERATOR, the patient was placed in supine position, prepped and draped in a sterile manner. I accessed the fistula with ultrasound guidance and micropuncture technique and eventually placed opposing 6-Swedish introducers careful not to overlap. Guidewire and glide catheter were passed through the body of the fistula and through the arterial anastomosis and a selective brachial arteriogram was performed, which revealed no evidence of embolus or stenoses down to the wrist level and up to the shoulder. TPA 2 mg was then laced into the thrombus as the catheter was pulled back. Then, over a guidewire, I lysed thrombus with the AngioJet device up to the venous anastomosis and into the axillary vein and then used an angioplasty balloon to macerate residual thrombus from the venous anastomosis to the venous cannula and clot was aspirated during this. The patient was systemically heparinized with a total of 12,000 units of heparin given during the procedure, which was not reversed at the end of the operation. Thrombus was removed from the arterial limb and body of the graft then with the AngioJet and pulsatile inflow was restored. Contrast injection revealed a stenosis of the arterial anastomosis and this was subsequently dilated with a 7 mm angioplasty balloon and repeat contrast injection revealed no residual stenosis there. There was extensive thrombus remaining within the body of the OPERATIVE REPORT [id number] JAVI MORELOS graft in the aneurysmal portions. This was tacked with a Trerotola device and repeated balloon maceration and AngioJet treatment. Eventually, continuous pulsatile flow was reestablished in the access, although there was persistent thrombus in the aneurysmal areas. I then used ultrasound guidance and inserted a micropuncture catheter into the right internal jugular vein and performed a venogram, which demonstrated complete total occlusion of the right internal jugular behind the clavicular head. The left internal jugular was then accessed with ultrasound guidance and micropuncture technique and a superior vena cavogram performed, which revealed patency of the internal jugular and brachiocephalic veins and wide open SVC. I exchanged guidewires and passed dilators under fluoroscopy and eventually placed a 23 cm Trialysis catheter, its tip reaching into the right atrium. All 3 lumens were accessed and aspirated, free return of blood confirmed. They were then flushed with saline and then heparin locked, clamped and capped. The catheter was sutured to the skin near the entry site with 2-0 Prolene. The patient's fistula had remained patent. The two 6-Swedish sheaths were removed and hemostasis was obtained with jfciwx-sw-fbpwu 4-0 Prolene sutures and direct pressure. Sterile dressings were subsequently applied and the patient awakened and taken to the recovery room with a functioning fistula. I am very concerned because of the patient's thrombophilia and the persisting clot load within the fistula and for that reason I did not reverse his heparin, indeed plan to continue him on heparin overnight. I was concerned if I placed a tunneled catheter today that there will be bleeding from the tunnel, so the Trialysis catheter was inserted. I am going to go ahead and put him down on the schedule for return to the operating room Thursday for exchange to a tunneled dialysis catheter unless as seems remotely likely the patient's AV graft fistula remains patent. If so, then he should be discharged on Eliquis with plans to follow up at [facility]. Blood loss during the operation was about 100 to perhaps 150 cc, none was replaced. All sponges, instruments and needles were accounted for. No drain was used and no surgical specimen submitted for histopathology. TRANSINT:[id number] Voice Confirmation ID: [id number] DOCUMENT ID: [id number] ANTONIO KAPLAN MD at 1225 CC: MICHAEL RUBY [id number] DICTATION DATE: 12/24/17 1143 ASSET PROTECTION ASSOCIATE: 12/24/17 1455 DIS IN 12/15/17 [facility] [address] [place] [address]
--- NOTE | ~2017-12-10 | OP ---
PATIENT NAME: JAVI MORELOS MEDICAL RECORD: [id number] :44 LOCATION:D. D.2139 ADMISSION DATE:12/10/17 SURGEON: ANTONIO KAPLAN MD DATE OF OPERATION: 12/14/2017 REFERRED BY: Michael Ruby MD PREOPERATIVE DIAGNOSES: End-stage renal disease and dependence on hemodialysis with recent dialysis access complication with extravasation in the left arm AV access. He has had a declot procedure in the left arm access and a Trialysis catheter insertion. He is brought back to the operating room for insertion of a HemoSplit dialysis catheter, so I think it will be another couple of weeks really before the fistula can be utilized sufficiently to be considered reliable at which time he can have his tunneled catheter removed. POSTOPERATIVE DIAGNOSES: End-stage renal disease and dependence on hemodialysis with recent dialysis access complication with extravasation in the left arm AV access. He has had a declot procedure in the left arm access and a Trialysis catheter insertion. He is brought back to the operating room for insertion of a HemoSplit dialysis catheter, so I think it will be another couple of weeks really before the fistula can be utilized sufficiently to be considered reliable at which time he can have his tunneled catheter removed. ANESTHESIA: TIVA per SUMMER INTERN. SURGEON: Antonio Kaplan MD OPERATION PERFORMED: Insertion of a HemoSplit tunneled dialysis catheter in the left internal jugular vein and removal of Trialysis left IJ catheter. DESCRIPTION OF PROCEDURE: Under TIVA, the patient was placed in supine position, prepped and draped in a sterile manner. The Trialysis catheter was removed and a guidewire placed via the left internal jugular vein and advanced under fluoroscopy into the inferior vena cava. Dilators were passed over this. The incision site was enlarged and lastly a dilator peel-away sheath was inserted. I chose a 23 cm HemoSplit catheter and identified a satisfactory entry site beneath the clavicle. An incision was made there and this catheter was pulled from that site through a subcutaneous tunnel up to the cervical wound. It was then inserted over the guidewire through the peelaway sheath and its tip placed in good position in the right atrium. The catheter was accessed and aspirated from both lumens, good return of blood was returned. It flushed easily. It was heparin locked and sutured to the skin near the entry site with 2-0 Prolene. The cervical wound was closed with interrupted subcutaneous inverted 3-0 Vicryl sutures. Dermabond glue was utilized and the wound dressed with Maxorb Ag, Tegaderm and Cavilon skin prep. A chlorhexidine Biopatch was applied to the catheter entry site and that area was dressed with a standard CVL dressing. PLAN: The patient should be discharged to home on an anticoagulant and await the results of his hypercoagulability or thrombophilic workup. I believe we can try to start using the AV graft in his left arm this week and if all is well, schedule him for a fistulogram without stopping his anticoagulation at [facility] in 2-3 weeks. Also, at that time, if the fistula looks good and has been reliable, we will plan to remove the HemoSplit catheter. I believe we can do this without stopping his anticoagulant. OPERATIVE REPORT [id number] JAVI MORELOS TRANSINT:[id number] Voice Confirmation ID: [id number] DOCUMENT ID: [id number] ANTONIO KAPLAN MD at 1221 CC: MICHAEL RUBY [id number] DICTATION DATE: 01/05/18 1323 CANDY COOKER HELPER: 01/05/18 1525 DIS IN 12/15/17 [facility] [address] [place] [address]
[2017-12-10] MEDS ORDERED: HYDROCODON-ACET15 ML PO (13:37)
[2017-12-10] MEDS ORDERED: MIRALAX527 GM PO (13:39)
[2017-12-10] MEDS ORDERED: RENAGEL800 MG PO (13:45)
[2017-12-10 13:59] LABS: BASOPHILS 0.6 % (0-2); EOSINOPHILS 5.3 % (0-7); HEMOGLOBIN 8.4 g/dL (13.5-17.5); IMMATURE GRANULOCYTES 0.2 % (0-5); LYMPHOCYTES 24.2 % (15-50); MCH 31.1 pg (26.0-34.0); MCV 103.7 fL (80.0-100.0); MEAN PLATELET VOLUME 9.3 fL (7.4-10.4); MONOCYTES 6.9 % (2-11); NEUTROPHILS 62.8 % (40-80); PLATELET COUNT 368 10x3/uL (130-400); RDW 15.1 % (11.5-14.5); WBC 8.5 10x3/uL (4.8-10.8)
[2017-12-10 14:04] LABS: ANION GAP 19.3 mmol/L (8-16); CALCIUM 8.6 mg/dL (8.5-10.1); CARBON DIOXIDE 24.4 mmol/L (21.0-32.0); POTASSIUM - SERUM 4.7 mmol/L (3.5-5.1)
[2017-12-10 15:11] VITALS: BP 139/73
[2017-12-10 17:23] LABS: INR 0.96 (0.85-1.17); PROTIME 12.4 SECONDS (11.6-15.0)
[2017-12-10 21:42] VITALS: BP 159/64
[2017-12-11 01:07] VITALS: BMI 28.1
[2017-12-11 02:01] VITALS: BP 141/53
[2017-12-11 05:32] VITALS: BP 140/67
[2017-12-11 07:02] LABS: BASOPHILS 0.4 % (0-2); EOSINOPHILS 6.3 % (0-7); HEMATOCRIT 30.7 % (42.0-54.0); HEMOGLOBIN 9.2 g/dL (13.5-17.5); IMMATURE GRANULOCYTES 0.2 % (0-5); LYMPHOCYTES 25.3 % (15-50); MCV 103.4 fL (80.0-100.0); MEAN PLATELET VOLUME 9.4 fL (7.4-10.4); MONOCYTES 12.2 % (2-11); NEUTROPHILS 55.6 % (40-80); PLATELET COUNT 385 10x3/uL (130-400); RBC 2.97 10x6/uL (4.20-6.10); RDW 15.2 % (11.5-14.5); WBC 9.9 10x3/uL (4.8-10.8)
[2017-12-11 07:26] LABS: CALCIUM 8.5 mg/dL (8.5-10.1); CARBON DIOXIDE 23.9 mmol/L (21.0-32.0); CREATININE - SERUM 8.4 mg/dL (0.6-1.3)
[2017-12-11 07:30] LABS: ANION GAP 17.3 mmol/L (8-16); POTASSIUM - SERUM 4.2 mmol/L (3.5-5.1)
[2017-12-11 07:40] VITALS: BP 162/58
[2017-12-11 11:52] VITALS: BP 156/64
[2017-12-11 13:40] VITALS: Ht 180.3 cm; Wt 91.5 kg
[2017-12-11 17:44] VITALS: BP 156/55
[2017-12-12 01:00] VITALS: BP 103/49
[2017-12-12 04:00] VITALS: BP 109/55
[2017-12-12 09:14] VITALS: BP 133/70
[2017-12-12 12:23] VITALS: BP 161/56
[2017-12-12 16:39] VITALS: BP 142/68
[2017-12-13 05:48] VITALS: BP 154/54
[2017-12-13 06:27] LABS: BASOPHILS 0.6 % (0-2); EOSINOPHILS 7.9 % (0-7); HEMATOCRIT 25.4 % (42.0-54.0); IMMATURE GRANULOCYTES 0.2 % (0-5); LYMPHOCYTES 22.7 % (15-50); MCHC 29.5 g/dL (31.0-37.0); MEAN PLATELET VOLUME 9.3 fL (7.4-10.4); MONOCYTES 9.8 % (2-11); NEUTROPHILS 58.8 % (40-80); PLATELET COUNT 350 10x3/uL (130-400); RBC 2.42 10x6/uL (4.20-6.10); RDW 15.3 % (11.5-14.5)
[2017-12-13 06:32] LABS: ANION GAP 14.4 mmol/L (8-16); CALCIUM 8.5 mg/dL (8.5-10.1); CARBON DIOXIDE 24.9 mmol/L (21.0-32.0); CREATININE - SERUM 7.1 mg/dL (0.6-1.3); HEMOGLOBIN 7.5 g/dL (13.5-17.5); POTASSIUM - SERUM 4.3 mmol/L (3.5-5.1)
[2017-12-13 08:02] VITALS: BP 135/65
[2017-12-13 11:16] VITALS: BP 134/56
[2017-12-13 15:01] VITALS: BP 159/58
[2017-12-13 20:00] VITALS: BP 110/64
[2017-12-14] VITALS: BP 155/55
[2017-12-14 04:00] VITALS: BP 150/58
[2017-12-14 05:39] LABS: BASOPHILS 0.8 % (0-2); EOSINOPHILS 9.8 % (0-7); HEMATOCRIT 24.9 % (42.0-54.0); IMMATURE GRANULOCYTES 0.1 % (0-5); LYMPHOCYTES 23.5 % (15-50); MCH 30.8 pg (26.0-34.0); MCHC 29.3 g/dL (31.0-37.0); MCV 105.1 fL (80.0-100.0); MEAN PLATELET VOLUME 9.4 fL (7.4-10.4); MONOCYTES 12.9 % (2-11); NEUTROPHILS 52.9 % (40-80); PLATELET COUNT 371 10x3/uL (130-400); RBC 2.37 10x6/uL (4.20-6.10); RDW 15.2 % (11.5-14.5); WBC 8.7 10x3/uL (4.8-10.8)
[2017-12-14 05:42] LABS: HEMOGLOBIN 7.3 g/dL (13.5-17.5)
[2017-12-14 05:45] LABS: ANION GAP 15.2 mmol/L (8-16); CALCIUM 8.6 mg/dL (8.5-10.1); CARBON DIOXIDE 25.6 mmol/L (21.0-32.0); CREATININE - SERUM 7.5 mg/dL (0.6-1.3); POTASSIUM - SERUM 4.8 mmol/L (3.5-5.1)
[2017-12-14 09:17] VITALS: BP 193/68
[2017-12-14 10:44] VITALS: BP 128/59
[2017-12-14 15:55] VITALS: BP 133/64
[2017-12-15 00:58] VITALS: BP 173/68
[2017-12-15 04:00] VITALS: BP 144/47
[2017-12-15 06:08] LABS: BASOPHILS 0.3 % (0-2); EOSINOPHILS 5.8 % (0-7); HEMATOCRIT 28.5 % (42.0-54.0); HEMOGLOBIN 8.6 g/dL (13.5-17.5); IMMATURE GRANULOCYTES 0.2 % (0-5); LYMPHOCYTES 17.8 % (15-50); MCH 30.7 pg (26.0-34.0); MCHC 30.2 g/dL (31.0-37.0); MEAN PLATELET VOLUME 9.4 fL (7.4-10.4); MONOCYTES 12.1 % (2-11); NEUTROPHILS 63.8 % (40-80); PLATELET COUNT 361 10x3/uL (130-400); RDW 15.8 % (11.5-14.5); WBC 10.1 10x3/uL (4.8-10.8)
[2017-12-15 06:09] LABS: MCV 101.8 fL (80.0-100.0)
[2017-12-15 06:35] LABS: ANION GAP 16.7 mmol/L (8-16); CARBON DIOXIDE 24.9 mmol/L (21.0-32.0); POTASSIUM - SERUM 4.6 mmol/L (3.5-5.1)
[2017-12-15 06:36] LABS: CREATININE - SERUM 5.5 mg/dL (0.6-1.3)
[2017-12-15] MEDS ORDERED: ELIQUIS2.5 MG PO (07:41)
[2017-12-15 07:46] VITALS: BP 148/51
[2017-12-16 09:18] LABS: HEPATITIS C ANTIBODY <0.1 (0.0-0.9)
== END 2017-12-15 15:05 | DRG 252 ==
LOC: D.M2 12:36
PROVIDERS: Internal Medicine; Internal Medicine Nephrology; Surgery
PROC: B5181ZZ Fluoroscopy of Superior Vena Cava using Low Osmolar Contrast (ICD-10-PCS; 2017-12-11)
PROC: 02HV33Z Insertion of Infusion Device into Superior Vena Cava, Percutaneous Approach (ICD-10-PCS; 2017-12-11)
PROC: 5A1D70Z Performance of Urinary Filtration, Intermittent, Less than 6 Hours Per Day (ICD-10-PCS; principal; 2017-12-11 12:00)
PROC: 03C63ZZ Extirpation of Matter from Left Axillary Artery, Percutaneous Approach (ICD-10-PCS; 2017-12-11 12:00)
PROC: 03763ZZ Dilation of Left Axillary Artery, Percutaneous Approach (ICD-10-PCS; 2017-12-11 12:00)
PROC: 3E05317 Introduction of Other Thrombolytic into Peripheral Artery, Percutaneous Approach (ICD-10-PCS; 2017-12-11 12:00)
PROC: B3111ZZ Fluoroscopy of Right Brachiocephalic-Subclavian Artery using Low Osmolar Contrast (ICD-10-PCS; 2017-12-11 12:00)
PROC: 05HN33Z Insertion of Infusion Device into Left Internal Jugular Vein, Percutaneous Approach (ICD-10-PCS; 2017-12-14)
DX: T82.868A Thrombosis due to vascular prosthetic devices, implants and grafts, initial encounter (principal); N18.6 End stage renal disease; I12.0 Hypertensive chronic kidney disease with stage 5 chronic kidney disease or end stage renal disease; D68.59 Other primary thrombophilia; I82.C11 Acute embolism and thrombosis of right internal jugular vein; Y83.8 Other surgical procedures as the cause of abnormal reaction of the patient, or of later complication, without mention of misadventure at the time of the procedure; Z99.2 Dependence on renal dialysis; I25.10 Atherosclerotic heart disease of native coronary artery without angina pectoris; Z87.891 Personal history of nicotine dependence; E78.5 Hyperlipidemia, unspecified

== ENCOUNTER 2017-12-25 05:39 | Day surgery (SDC) | payer MEDICARE ==
[~2017-12-25] VITALS: Ht 180.3 cm; Wt 91.6 kg
--- NOTE | ~2017-12-25 | OP ---
PATIENT NAME: JAVI MORELOS MEDICAL RECORD: [id number] :44 LOCATION:PHILLIP ADMISSION DATE: SURGEON: ANTONIO KAPLAN MD DATE OF OPERATION: 12/25/2017 REFERRED BY: Dr. Criselda Vieyra. 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 OPERATION PERFORMED: Ultrasound-guided access and angiogram of left upper extremity AV graft with AngioJet mechanical thrombolysis and balloon angioplasty of arterial anastomotic stenosis and a selective brachial arteriography. SURGEON: Antonio Kaplan MD ANESTHESIA: General with LMA per RAT POISONER. PREOPERATIVE NOTE: Mr. Morelos is a 71-year-old white male fpc patient from [place], [place]. He has end-stage renal disease and he is on chronic hemodialysis in [place]. I believe he has some element of dementia and has been found to be unsuitable for conscious sedation at [facility]. He dialyzes with a left upper extremity brachial axillary AV graft. Actually, the arterial anastomosis is the residual of a PRA to cephalic vein AV fistula. This was revised some time ago with a conversion to a graft without flow through the axillary vein. He has in the past had a venous anastomotic stent placed and much more recently only about 2 weeks ago, he presented with an acute thrombosis and attempts to declot this at [facility] were unsuccessful in large part because of his inability to be satisfactorily sedated and he was admitted here and I operated him and was able to get the AV graft open at that time. I did not place any new stents at that time, but did mechanical thrombolysis and pharmacologic thrombolysis and angioplasty, seemingly successfully. Apparently, the graft was only used once after that after his discharge, I believe he has been on Eliquis 2.5 mg b.i.d., but clotted anyway. I was called yesterday by Dr. Vieyra who told me about this and I made arrangements for the patient to come in today for surgery. We will try another percutaneous angiogram and see what we find. He may need an open revision and very possibly may need a new access. DESCRIPTION OF PROCEDURE: Under general anesthesia with LMA per RAT POISONER, the patient was placed in supine position, prepped and draped in a sterile manner. The left upper arm graft was accessed twice in non-overlapping antegrade and retrograde positions using ultrasound guidance and micropuncture technique. Two 6-Monegasque sheaths were inserted. Over a Glidewire, I selectively catheterized the proximal brachial artery and performed a brachial artery arteriogram. This revealed good flow in the brachial artery and the ulnar and radial arteries without evidence of embolization or stenosis. I then advanced a wire and a glide catheter across the venous outflow and I performed a pullback contrast injection and demonstrated there was no thrombosis or severe stenosis of the outflow tract, although there was certainly clot within the stent. The patient OPERATIVE REPORT [id number] JAVI MORELOS was given 10,000 units of heparin and this was later supplemented with an additional 2000 units of heparin. I used the AngioJet device to lyse thrombus within the body of the graft and venous outflow and then performed balloon angioplasty to macerate any remaining thrombus. This was done with serial overlapping inflations from the proximal end of the venous outflow stent to the distal sheath. An 8-mm diameter balloon was utilized. Repeated contrast injection revealed some residual clot, which was cleared with a Zeynep embolectomy catheter. The Zeynep catheter was also used to pull the plug and thrombus from the arterial limb. Repeated selective injection demonstrated an arterial stenosis and swing segment stenosis, which was then successfully dilated with a 6 and then later with an 8-mm angioplasty balloon. There was some roughening of the arterial juxta-anastomotic segment, probably due to a tenacious thrombus on contrast injection, there was no extravasation, and basically good result with rapid runoff through the body of the graft and through the axillary vein. I did note that there is a prominent axillary vein valve just about a centimeter or 2 proximal to the proximal end of the axillary vein stent and it might be advisable in future to place an additional overlapping stent, so that its proximal ends could be just proximal to this valve. I did not do that today. The patient's heparin was not reversed. His hardware was removed and hemostasis obtained with 2 ikuthb-jp-kfdie 4-0 Prolene sutures and some direct pressure. The 2 puncture sites were subsequently dressed with Ultrafoam and Tegaderm with Cavilon skin prep. The patient was awakened and taken to the recovery room in stable condition. Blood loss during the operation about 50 cc was unreplaced. All sponges, instruments, and needles were accounted for. No drain was used and no surgical specimen was submitted for histopathology. PLAN: The patient I believe can go back to the fpc today. I am going to give him a loading dose of Plavix 150 mg p.o. and then I am prescribing 75 mg of Plavix p.o. daily. He will continue his aspirin, which he was on preop. He will continue on Eliquis, but I am increasing the dose to 5 mg b.i.d. Assuming he does not thrombosed his graft in the meantime, he will be scheduled to return here for a fistulogram or angiogram here in the operating room under general anesthesia with possible intervention. We will not stop his Plavix and Eliquis prior to that procedure. If, however, in the meantime, he thrombosis of the graft, then I think it would be wiser just to go ahead and make a new access for him, probably an AV graft on the right arm. I left the tunneled dialysis catheter in place today and would plan to remove that next month when we do his angiogram if all looks well and he has been able to be dialyzed with his graft successfully for a month. It is important I believe that the graft be used beginning tomorrow for dialysis and should be used every time. Let us not use the tunneled dialysis catheter unless absolutely necessary. TRANSINT:[id number] Voice Confirmation ID: [id number] DOCUMENT ID: [id number] OPERATIVE REPORT [id number] JAVI MORELOS, ANTONIO SPIVEY at 1241 CC: CRISELDA VIEYRA MD [id number] DICTATION DATE: 12/25/17 111 FIELD ARTILLERY OPERATIONS SPECIALIST: 12/25/17 1449 [facility] 12/25/17 [place] [id number] [place] [id number]
[~2017-12-25 05:39] MED LIST changes: +ELIQUIS2.5 MG PO; +HYDROCODON-ACET15 ML PO; +MIRALAX527 GM PO; +RENAGEL800 MG PO
[2017-12-25 07:03] VITALS: BP 164/58; Ht 180.3 cm; Wt 91.6 kg
[2017-12-25 07:06] LABS: BASOPHILS 0.6 % (0-2); EOSINOPHILS 5.9 % (0-7); HEMATOCRIT 30.9 % (42.0-54.0); IMMATURE GRANULOCYTES 0.7 % (0-5); LYMPHOCYTES 20.6 % (15-50); MCH 30.8 pg (26.0-34.0); MCHC 29.1 g/dL (31.0-37.0); MCV 105.8 fL (80.0-100.0); MEAN PLATELET VOLUME 9.3 fL (7.4-10.4); MONOCYTES 11.1 % (2-11); NEUTROPHILS 61.1 % (40-80); PLATELET COUNT 423 10x3/uL (130-400); RBC 2.92 10x6/uL (4.20-6.10); RDW 14.6 % (11.5-14.5); WBC 12.3 10x3/uL (4.8-10.8)
[2017-12-25 07:13] LABS: APTT 30.5 SECONDS (22.8-39.4); INR 1.13 (0.85-1.17); PROTIME 14.1 SECONDS (11.6-15.0)
[2017-12-25 07:42] LABS: ANION GAP 14.5 mmol/L (8-16); CALCIUM 9.7 mg/dL (8.5-10.1); CARBON DIOXIDE 27.7 mmol/L (21.0-32.0); POTASSIUM - SERUM 4.2 mmol/L (3.5-5.1)
== END 2017-12-25 15:30 ==
LOC: D.OPS 05:39
PROVIDERS: Internal Medicine Nephrology
DX: T82.868A Thrombosis due to vascular prosthetic devices, implants and grafts, initial encounter (principal); T82.858A Stenosis of other vascular prosthetic devices, implants and grafts, initial encounter; I12.0 Hypertensive chronic kidney disease with stage 5 chronic kidney disease or end stage renal disease; N18.6 End stage renal disease; Z99.2 Dependence on renal dialysis; D68.59 Other primary thrombophilia; F03.90 Unspecified dementia, unspecified severity, without behavioral disturbance, psychotic disturbance, mood disturbance, and anxiety; Z01.812 Encounter for preprocedural laboratory examination

== ENCOUNTER 2017-12-31 15:53 | Inpatient (IN) | payer MEDICARE ==
[~2017-12-31] VITALS: Ht 180.3 cm; Wt 89.4 kg
--- NOTE | ~2017-12-31 | CN ---
PATIENT NAME:JAVI MORELOS MEDICAL RECORD: [id number] : 43 LOCATION:[facility] D.2126 ADMIT DATE: 12/31/17 ACCOUNT: [id number] CONSULTING PHYSICIAN: CORIE GARCIA MD REFERRING PHYSICIAN: WERO DAVIDSON MD DATE OF CONSULTATION: 01/02/2018 HISTORY: A 72-yearold gentleman with a history of chronic renal insufficiency - on hemodialysis, was transferred here to be severely anemic, status post transfusion. Actually reports surprisingly lack of symptomatology from degree of anemia. No anginal type symptomatology. Some breathlessness, may be baseline, was found to have elevated cardiac enzymes, which seemed concerning his cardiovascular status. PAST MEDICAL HISTORY: 1. History of hypertension. 2. Hyperlipidemia. 3. Chronic obstructive pulmonary disease. 4. Chronic renal insufficiency. MEDICATIONS: Include MiraLax 17 grams b.i.d., Zofran 4 mg q. 6 hours, Renagel 800 t.i.d., Ultram 500 q. 6 hours p.r.n., Restoril 22.5 q.h.s. p.r.n., Zoloft 75 every day, hydrocodone p.o. q.4 hours p.r.n., aspirin 81 every day, atorvastatin 10 at bedtime, albuterol q. 4 hours p.r.n. ALLERGIES: None known. SOCIAL HISTORY: Currently resides in a long term. REVIEW OF SYSTEMS: The patient reports easy bruising but reports no swollen glands. The patient reports no fever, no night sweats, no significant weight gain, no significant weight loss. No significant exercise tolerance. The patient reports no dry eyes, no irritation, no vision change. Patient reports no difficulty hearing and no ear pain. Patient reports no frequent nose bleeds or nose and sinus problems. Patient reports on arm pain on exertion. No shortness of breath while lying down. No history of heart murmur. Patient reports no cough, no wheezing or coughing up blood. Patient reports no abdominal pain, no vomiting. Normal appetite. No diarrhea and not vomiting blood. No nausea and no constipation. Patient reports no incontinence. No difficulty urinating. No hematuria. No increased frequency. Patient reports no muscle aches. No weakness, no arthralgias, no back pain. No swelling of the extremities. Patient reports no abnormal mole, no jaundice, no rashes. Reports no loss of consciousness. No weakness and no numbness. No seizures, dizziness, or headaches. The patient reports no depression, no sleep disturbance, feeling safe in a relationship and no alcohol abuse. Patient reports on fatigue. Reports no runny nose or sinus pressure. No itching, no hives, and no frequent sneezing. PHYSICAL EXAMINATION: GENERAL: Pleasant gentleman in no acute distress. HEENT: Normocephalic and atraumatic. NECK: No bruits noted. HEART: Regular, II/ systolic ejection murmur. LUNGS: Good air excursion. ABDOMEN: Soft and nontender. CONSULT REPORT [id number] JAVI MORELOS EXTREMITIES: Pulses 2+. No edema. LABORATORY DATA: Echocardiographic study shows actually well preserved LV systolic function. IMPRESSION: Demand ischemia, actually tolerated the hemoglobin of 5 surprisingly well for age, etc., transfusion as you are doing. No contraindication to scope from a cardiovascular standpoint, no further workup needed from a cardiovascular standpoint. TRANSINT:[id number] Voice Confirmation ID: [id number] DOCUMENT ID: [id number] CORIE GARCIA MD at 0847 CC: [id number] DICTATION DATE: 01/02/18 105 WOOL SHEARER: 01/02/182057 ADM IN [place] [id number] [place] [id number]
--- NOTE | ~2017-12-31 | EC ---
PATIENT:JAVI MORELOS DATE OF SERVICE: 12/31/17 SEX: M MEDICAL RECORD: [id number] DATE OF : 43 LOCATION:D.M2 D.212 AGE OF PATIENT: 72 ADMISSION DATE: 12/31/17 REFERRING PHYSICIAN: INTERPRETING PHYSICIAN: CORIE GRACIA MD ECHOCARDIOGRAM REPORT ECHO CHARGES 4 ECHO COMPLETE Date: 01/01 CLINICAL DIAGNOSIS: ACS ECHOCARDIOGRAPHIC MEASUREMENTS (adult normal given) AC root (d.<3.7cm) 3.0 cm LV Septum d (<1.2 cm> 1.3 cm Valve Excursion 1.0 cm LV Septum (systole) 2.0 cm Left Atria (s.<4.0cm> 4.1 cm LVPW d(<1.2cm) 1.2 cm RV (d.<2.3cm) 3.1 cm LVPW (sytole) 1.7 cm LV diastole(<5.6CM) 7.2 cm MV E-F(>70mm/sec) cm LV systole 5.5 cm LVOT Diameter 2.0 cm MV exc.(>10mm) cm Est.ejection fraction (50-75%) % DOPPLER: LVIT cm/sec A 136 cm/sec E 163 cm/sec LA cm/sec RVSP 33.0 mmHg LVOT 120 cm/sec AOP1/2T m/s Asc. Ao 376 cm/sec RVOT 71.0 cm/sec RA cm/sec PA 142 cm/sec AV Gradient Peak 57.0 mmHg AV Mean 32.3 mmHg AV Area 0.8 cm MV Gradient Peak 12.3 mmHg MV Mean 5.4 mmHg MV Area cm COMMENTS: Data Processing Supervisor: Hansa CASANOVAOE Career Development Coordinator: 3 Dr. Talamantes TAPE# PACS Pericardial Effusion N DATE OF SERVICE: 01/02/2018 Adequate 2D, color flow imaging, spectral Doppler, and M-Mode. LVH is present. LV internal dimension is normal. Wall motion is normal. EF is greater than or equal to 55%. Aortic valve is calcified with restriction of leaflet motion, peak gradient of 55 mmHg, putting this in the moderate range. Left atrium is minimally dilated at 4.1 cm. Mitral valve shows no prolapse. Crvq-dt-[id number] MR. Right-sided chambers normal. Trace TR. TRANSINT:[id number] Voice Confirmation ID: [id number] DOCUMENT ID: [id number] ECHOCARDIOGRAM REPORT [id number] JAVI MORELOS GREGORY A MD at 0847 CC: [id number] DICTATION DATE: 01/02/18925 STATE FARM AGENT TEAM MEMBER: 01/02/18 1431 ADM IN [facility] [address] [place] [address]
[2017-12-31 18:39] VITALS: BP 166/59; BMI 28.2
[2017-12-31 20:31] LABS: BASOPHILS 0.4 % (0-2); EOSINOPHILS 0.8 % (0-7); IMMATURE GRANULOCYTES 0.6 % (0-5); LYMPHOCYTES 18.1 % (15-50); MCH 30.7 pg (26.0-34.0); MCHC 30.2 g/dL (31.0-37.0); MCV 101.7 fL (80.0-100.0); MEAN PLATELET VOLUME 9.5 fL (7.4-10.4); MONOCYTES 8.1 % (2-11); RDW 17.6 % (11.5-14.5)
[2017-12-31 20:33] LABS: HEMOGLOBIN 5.4 g/dL (13.5-17.5); RBC 1.76 10x6/uL (4.20-6.10)
[2017-12-31 20:34] LABS: HEMATOCRIT 17.9 % (42.0-54.0); PLATELET COUNT 320 10x3/uL (130-400)
[2017-12-31 20:40] LABS: ALBUMIN 2.7 g/dL (3.4-5.0); ANION GAP 13.1 mmol/L (8-16); BILIRUBIN - TOTAL 0.15 mg/dL (0.2-1.3); CALCIUM 8.4 mg/dL (8.5-10.1); CARBON DIOXIDE 27.4 mmol/L (21.0-32.0); CREATININE - SERUM 4.7 mg/dL (0.6-1.3); POTASSIUM - SERUM 4.5 mmol/L (3.5-5.1); PROTEIN - SERUM 5.7 g/dL (6.4-8.2)
[2017-12-31 21:16] VITALS: BP 167/48
[2017-12-31 22:00] VITALS: BP 149/73
[2017-12-31 23:00] VITALS: BP 154/63
[2018-01-01] VITALS (21 sets, daily range): BP systolic 124–176; BP diastolic 43–82; Ht 180.3 cm; Wt 89.4 kg
[2018-01-01 07:18] LABS: BASOPHILS 0.4 % (0-2); EOSINOPHILS 2.4 % (0-7); HEMATOCRIT 25.4 % (42.0-54.0); HEMOGLOBIN 8.3 g/dL (13.5-17.5); IMMATURE GRANULOCYTES 0.5 % (0-5); LYMPHOCYTES 17.5 % (15-50); MCHC 32.7 g/dL (31.0-37.0); MCV 91.7 fL (80.0-100.0); MONOCYTES 9.7 % (2-11); NEUTROPHILS 69.5 % (40-80); PLATELET COUNT 240 10x3/uL (130-400); RBC 2.77 10x6/uL (4.20-6.10); RDW 18.1 % (11.5-14.5); WBC 12.7 10x3/uL (4.8-10.8)
[2018-01-01 07:32] LABS: ALBUMIN 2.5 g/dL (3.4-5.0); ANION GAP 15.4 mmol/L (8-16); BILIRUBIN - TOTAL 0.53 mg/dL (0.2-1.3); CALCIUM 8.5 mg/dL (8.5-10.1); CARBON DIOXIDE 25.2 mmol/L (21.0-32.0); POTASSIUM - SERUM 4.6 mmol/L (3.5-5.1); PROTEIN - SERUM 5.6 g/dL (6.4-8.2)
[2018-01-01 10:30] LABS: CKMB 0.7 U/L (0.0-3.6); CREATINE KINASE 28 UL (21-232)
[2018-01-01 10:39] LABS: TROPONIN-I 0.391 ng/mL (0.000-0.060)
[2018-01-02] VITALS (22 sets, daily range): BP systolic 95–184; BP diastolic 40–81
[2018-01-02 08:41] LABS: BASOPHILS 0.5 % (0-2); EOSINOPHILS 6.2 % (0-7); HEMATOCRIT 26.4 % (42.0-54.0); HEMOGLOBIN 8.5 g/dL (13.5-17.5); IMMATURE GRANULOCYTES 0.3 % (0-5); LYMPHOCYTES 21.4 % (15-50); MCH 30.1 pg (26.0-34.0); MCHC 32.2 g/dL (31.0-37.0); MCV 93.6 fL (80.0-100.0); MEAN PLATELET VOLUME 9.4 fL (7.4-10.4); NEUTROPHILS 62.6 % (40-80); RBC 2.82 10x6/uL (4.20-6.10); RDW 19.2 % (11.5-14.5); WBC 12.2 10x3/uL (4.8-10.8)
[2018-01-02 08:42] LABS: PLATELET COUNT 293 10x3/uL (130-400)
[2018-01-02 08:47] LABS: INR 1.17 (0.85-1.17); PROTIME 14.5 SECONDS (11.6-15.0)
[2018-01-02 08:57] LABS: ALBUMIN 2.9 g/dL (3.4-5.0); ANION GAP 18.1 mmol/L (8-16); BILIRUBIN - TOTAL 0.36 mg/dL (0.2-1.3); CALCIUM 8.9 mg/dL (8.5-10.1); CARBON DIOXIDE 22.5 mmol/L (21.0-32.0); CREATININE - SERUM 5.8 mg/dL (0.6-1.3); MAGNESIUM - SERUM 2.7 mg/dL (1.8-2.4); POTASSIUM - SERUM 4.6 mmol/L (3.5-5.1); PROTEIN - SERUM 6.3 g/dL (6.4-8.2)
[2018-01-02 20:04] LABS: CKMB 0.9 U/L (0.0-3.6); CREATINE KINASE 30 UL (21-232); TROPONIN-I 0.113 ng/mL (0.000-0.060)
[2018-01-03] VITALS (17 sets, daily range): BP systolic 121–152; BP diastolic 46–73
[2018-01-03 04:10] LABS: BASOPHILS 0.5 % (0-2); HEMATOCRIT 24.9 % (42.0-54.0); IMMATURE GRANULOCYTES 0.3 % (0-5); LYMPHOCYTES 19.9 % (15-50); MCH 30.3 pg (26.0-34.0); MCHC 32.1 g/dL (31.0-37.0); MCV 94.3 fL (80.0-100.0); MEAN PLATELET VOLUME 9.6 fL (7.4-10.4); MONOCYTES 10.9 % (2-11); NEUTROPHILS 64.4 % (40-80); PLATELET COUNT 280 10x3/uL (130-400); RBC 2.64 10x6/uL (4.20-6.10); RDW 18.9 % (11.5-14.5); WBC 10.2 10x3/uL (4.8-10.8)
[2018-01-03 04:35] LABS: ALBUMIN 2.7 g/dL (3.4-5.0); BILIRUBIN - TOTAL 0.36 mg/dL (0.2-1.3); CALCIUM 8.6 mg/dL (8.5-10.1); CREATININE - SERUM 4.6 mg/dL (0.6-1.3)
[2018-01-03 04:36] LABS: ANION GAP 12.3 mmol/L (8-16); CARBON DIOXIDE 28.6 mmol/L (21.0-32.0); POTASSIUM - SERUM 3.9 mmol/L (3.5-5.1)
[2018-01-04 04:00] VITALS: BP 152/47
[2018-01-04 04:24] LABS: BASOPHILS 0.7 % (0-2); EOSINOPHILS 6.9 % (0-7); HEMATOCRIT 26.5 % (42.0-54.0); HEMOGLOBIN 8.3 g/dL (13.5-17.5); IMMATURE GRANULOCYTES 0.3 % (0-5); LYMPHOCYTES 29.2 % (15-50); MCH 30.2 pg (26.0-34.0); MCHC 31.3 g/dL (31.0-37.0); MEAN PLATELET VOLUME 9.4 fL (7.4-10.4); MONOCYTES 11.6 % (2-11); NEUTROPHILS 51.3 % (40-80); PLATELET COUNT 282 10x3/uL (130-400); RBC 2.75 10x6/uL (4.20-6.10); RDW 18.7 % (11.5-14.5); WBC 8.9 10x3/uL (4.8-10.8)
[2018-01-04 04:37] LABS: ALBUMIN 2.6 g/dL (3.4-5.0); ANION GAP 11.4 mmol/L (8-16); BILIRUBIN - TOTAL 0.2 mg/dL (0.2-1.3); CALCIUM 8.1 mg/dL (8.5-10.1); CARBON DIOXIDE 28.7 mmol/L (21.0-32.0); CREATININE - SERUM 5.8 mg/dL (0.6-1.3); POTASSIUM - SERUM 4.1 mmol/L (3.5-5.1)
[2018-01-04 04:39] LABS: MCV 96.4 fL (80.0-100.0)
[2018-01-04 07:57] VITALS: BP 169/65
[2018-01-04 11:16] VITALS: BP 136/40
[2018-01-04] MEDS ORDERED: CARAFATE1 G/10 ML PO (14:19)
[2018-01-04] MEDS ORDERED: PROTONIX40 MG PO (14:19)
[2018-01-04 15:16] VITALS: BP 152/49
[2018-01-04 20:18] VITALS: BP 151/50
[2018-01-05 00:39] VITALS: BP 141/106
[2018-01-05 06:11] VITALS: BP 160/56
[2018-01-05 08:17] VITALS: BP 138/43
== END 2018-01-05 09:45 | DRG 377 ==
LOC: D.M2 15:53 → D.ICU 18:10 → D.M2 18:10 → D.ICU 21:45 → D.M2 01-03 16:49
PROVIDERS: Internal Medicine; Internal Medicine Cardiovascular Disease; Internal Medicine Gastroenterology; Internal Medicine Nephrology
PROC: 0W3P8ZZ Control Bleeding in Gastrointestinal Tract, Via Natural or Artificial Opening Endoscopic (ICD-10-PCS; principal; 2018-01-02 13:00)
DX: K26.4 Chronic or unspecified duodenal ulcer with hemorrhage (principal); N18.6 End stage renal disease; D62 Acute posthemorrhagic anemia; I13.2 Hypertensive heart and chronic kidney disease with heart failure and with stage 5 chronic kidney disease, or end stage renal disease; D68.59 Other primary thrombophilia; I24.8 Other forms of acute ischemic heart disease; K25.4 Chronic or unspecified gastric ulcer with hemorrhage; I50.9 Heart failure, unspecified; Z99.2 Dependence on renal dialysis; K44.9 Diaphragmatic hernia without obstruction or gangrene; K22.2 Esophageal obstruction; D72.829 Elevated white blood cell count, unspecified; J44.9 Chronic obstructive pulmonary disease, unspecified

== ENCOUNTER 2018-02-19 07:42 | Day surgery (SDC) | payer MEDICARE ==
[~2018-02-19] VITALS: Ht 180.3 cm; Wt 90.7 kg
--- NOTE | ~2018-02-19 | OP ---
PATIENT NAME: JAVI MORELOS MEDICAL RECORD: [id number] :43 LOCATION:[facility] ADMISSION DATE: SURGEON: ANTONIO KAPLAN MD DATE OF OPERATION: 02/19/2018 REFERRED BY: Michael Ruby MD PREOPERATIVE DIAGNOSES: End-stage renal disease and dependence on hemodialysis with recent thrombosis of left upper extremity AV graft fistula due to axillary stenosis and existing left internal jugular tunneled dialysis catheter. POSTOPERATIVE DIAGNOSES: End-stage renal disease and dependence on hemodialysis with recent thrombosis of left upper extremity AV graft fistula due to axillary stenosis and existing left internal jugular tunneled dialysis catheter. OPERATION PERFORMED: Ultrasound-guided access and left upper arm fistulogram followed through to the right atrium and including retrograde visualization of the juxta-anastomotic segment and arterial anastomosis and juxta-anastomotic brachial artery above and below the anastomosis, and removal of HemoSplit catheter. SURGEON: Antonio Kaplan MD ANESTHESIA: General with LMA per BLOOD BANK LABORATORY PROFESSIONAL PREOPERATIVE NOTE: Mr. Morelos is a 72-year-old white male patient with end-stage renal disease, presently on chronic hemodialysis with a left upper extremity brachial axillary PTFE AV graft a couple of months ago. This thrombosed requiring a percutaneous declot procedure and stenting in the axilla. He has had a left IJ HemoSplit catheter in place of all this time. I was concerned after the last angiogram that he might require additional stenting in the axillary vein because of the presence of a valve near the proximal end of the existing stent and has taken this long getting back to the OR for this procedure. Under anesthesia, the patient was placed in supine position, prepped and draped in sterile manner. The fistula was accessed with ultrasound guidance near the arterial anastomosis with micropuncture technique. Contrast injection then revealed no evidence of any stenosis or other significant abnormality of the entire length of the PTFE graft and the existing axillary endovascular stent graft and no stenosis of significance to the right atrium, although the left IJ catheter is causing some obstruction to flow. With proximal compression and injection of contrast, we then visualized the distal portion of the graft, the arterial anastomosis and brachial artery and saw no lesions there. The 4-Sinhala catheter was removed and hemostasis then obtained with a period of direct pressure and a sterile dressing applied. The patient's HemoSplit catheter was then removed by blunt dissection within the tunnel to separate the [place] cuff and it was then extracted and pressure held on the tunnel to achieve hemostasis while the patient was placed in reverse Trendelenburg position and a standard dressing applied. The patient was then awakened and taken to the recovery room. Blood loss during the operation was trivial and unreplaced. All sponges, instruments and needles were accounted for. No drain was used. No surgical specimen was submitted for histopathology, although I did send the catheter tip OPERATIVE REPORT [id number] JAVI MORELOS for culture. Mr. Morelos will go home today and continue his usual dialysis schedule, renal diet and medications. He will not need to return to see me in the office unless there is a different problem. I would like to have him scheduled for an elective followup angiogram at [facility] in 3 months. The nurses in the outpatient department are asked to call [facility] to schedule or to do this through the renal BULK PLANT AGENT. TRANSINT:[id number] Voice Confirmation ID: [id number] DOCUMENT ID: [id number] ANTONIO KAPLAN MD at 1410 CC: MICHAEL RUBY [id number] DICTATION DATE: 02/19/18 1103 PARTY PLAN SALES DIRECTOR: 02/19/18 1130 REG [facility] [address] [id number]
[~2018-02-19 07:42] MED LIST changes: +CARAFATE1 G/10 ML PO; -HYDROCODON-ACET15 ML PO; +PROTONIX40 MG PO; +RESTORIL15 MG PO; -RESTORIL22.5 MG PO
[2018-02-19] MEDS ORDERED: BETAGAN 0.5% OPH5 ML EACH EYE (09:04)
[2018-02-19 09:09] VITALS: Ht 180.3 cm; Wt 90.7 kg
[2018-02-19 09:30] LABS: BASOPHILS 0.4 % (0-2); EOSINOPHILS 3.4 % (0-7); HEMATOCRIT 41.2 % (42.0-54.0); HEMOGLOBIN 12.4 g/dL (13.5-17.5); IMMATURE GRANULOCYTES 0.3 % (0-5); MCHC 30.1 g/dL (31.0-37.0); MEAN PLATELET VOLUME 9.9 fL (7.4-10.4); MONOCYTES 11.4 % (2-11); NEUTROPHILS 68.5 % (40-80); RDW 16.7 % (11.5-14.5); WBC 11.5 10x3/uL (4.8-10.8)
[2018-02-19 09:35] LABS: APTT 28.9 SECONDS (22.8-39.4); INR 1.03 (0.85-1.17); PROTIME 13.1 SECONDS (11.6-15.0)
[2018-02-19 09:37] LABS: PLATELET COUNT 389 10x3/uL (130-400)
[2018-02-19 09:44] LABS: ANION GAP 14.3 mmol/L (8-16); CALCIUM 9.5 mg/dL (8.5-10.1); CARBON DIOXIDE 29.4 mmol/L (21.0-32.0); CREATININE - SERUM 4.6 mg/dL (0.6-1.3); POTASSIUM - SERUM 4.7 mmol/L (3.5-5.1)
[2018-03-31] MEDS ORDERED: PLAVIX75 MG PO (22:34)
[2018-03-31] MEDS ORDERED: CROLOM 4 % OPTH10 ML RIGHT EYE (22:36)
[2018-03-31] MEDS ORDERED: RENVELA800 MG PO (22:37)
[2018-03-31] MEDS ORDERED: PROAIR HFA8.5 GM INH (22:39)
== END 2018-02-19 13:20 | disposition home or self-care (01) ==
LOC: D.OPS 07:42
PROVIDERS: Surgery
DX: N18.6 End stage renal disease (principal); Z99.2 Dependence on renal dialysis; Z01.812 Encounter for preprocedural laboratory examination

== ENCOUNTER 2018-04-23 05:40 | Day surgery (SDC) | payer MEDICARE ==
[~2018-04-23] VITALS: Ht 180.3 cm; Wt 90.0 kg
--- NOTE | ~2018-04-23 | OP ---
PATIENT NAME: JAVI MORELOS MEDICAL RECORD: [id number] :43 LOCATION:[facility] ADMISSION DATE: SURGEON: ANTONIO KAPLAN MD DATE OF OPERATION: 04/23/2018 PREOPERATIVE DIAGNOSES: End-stage renal disease, dependence on hemodialysis; thrombosis of left upper extremity brachial axillary AV graft; and nonfunctioning right femoral tunneled dialysis catheter. POSTOPERATIVE DIAGNOSES: End-stage renal disease, dependence on hemodialysis; thrombosis of left upper extremity brachial axillary AV graft; and nonfunctioning right femoral tunneled dialysis catheter. OPERATIONS PERFORMED: Percutaneous angiogram with AngioJet mechanical thrombolysis and balloon angioplasty of left brachial axillary AV graft along with selective brachial artery arteriogram. Also removal and replacement under fluoroscopy of right femoral TDC, placing a 35-cm HemoSplit and performance of inferior vena cavogram. FINDINGS: Inferior vena cava with nonocclusive thrombosis around the catheter in the distal cava. ANESTHESIA: General with LMA per AGRICULTURE MECHANIC. REFERRING PHYSICIAN: Michael Craft MD PREOPERATIVE NOTE: Mr. Morelos is a 72-year-old demented white male patient, who is a alf resident. He has end-stage renal disease and is on chronic hemodialysis with left arm AV graft, which has been somewhat problematic and this required a stent in the venous outflow. The patient is very difficult to handle under conscious sedation in the ambulatory center and is brought to the operating room at this time so that he can have general anesthesia. His left arm graft thrombosed about a month ago or longer and he has been dialyzing with a right femoral HemoSplit catheter, which I placed about that time. He tells me this morning that it is not functioning. Under anesthesia, the patient was prepped and draped in sterile manner. I examined his arm with ultrasound to map the fistula. There was a long stent present in the proximal portion. The graft distally, just below the antecubital space, appeared to be sutured to the stump of an old brachial or proximal radial artery to cephalic vein AV fistula. I was quite concerned that I would have to move the arterial anastomosis, so I made an incision over the arm, just above the antecubital space, to expose the graft. I did that and also exposed the JA segment. I though used micropuncture technique to insert a guidewire and subsequently a 6-Irish introducer into the graft directed proximally. I was able to advance a Glidewire and [place] catheter under fluoroscopy proximally through the thrombus and through the stent and venous outflow into the central venous circulation. Contrast was injected, which demonstrated stenosis and occlusion of the fistula at the proximal end of the venous outflow stent with stenosis in the axillary vein just proximal to that. I then inserted an AngioJet catheter and lysed thrombus from there distally to the access port. The patient was systemically heparinized with 5000 units. I then used an 8-mm diameter x 80 angioplasty balloon to dilate stenosis within the venous outflow stent and the body of the graft. There were numerous very tight stenoses present within the graft itself as well as in the stent. This subsequently OPERATIVE REPORT [id number] JAVI MORELOS required the use of a high pressure Conquest balloon. I chose a 6-mm Conquest so that I could more safely use that at high pressures within the PTFE graft body. The subsequent contrast injection after all this looked quite good and the graft was then flushed with heparinized saline. A second port was inserted closer to the shoulder directed distally and a guidewire was inserted and advanced fairly easily across the JA and AA into the proximal brachial artery. I followed that with the [place] catheter and performed selective brachial artery arteriogram, which revealed no evidence of embolization or thrombosis within the brachial artery or any flow-limiting stenosis proximally. I then used the AngioJet to lyse thrombus within the JA segment and arterial anastomosis, and then performed an angiogram with proximal occlusion which demonstrated stenosis within the JA segment. This was dilated with a 5-mm angioplasty balloon and completion contrast injections demonstrated a nice lumen from the arterial anastomosis to the axillary artery and good flow. The distal port site was sutured with 6-0 Prolene after removal of the port and proximally the port was removed and hemostasis was obtained with a pursestring 4-0 Prolene. The wound was closed with interrupted inverted 3-0 Vicryl and running intracuticular 4-0 Monocryl and Dermabond glue. The proximal puncture site was dressed with Ultrafoam and Tegaderm with Cavilon skin prep. The distal incision was sealed with Dermabond glue and dressed with Maxorb Ag, Tegaderm, and Cavilon skin prep. The patient was then turned and reprepped and draped for a TDC exchange. The catheter in the groin came loose with just mild traction and it was not necessary to instrument the tunnel at all or make any additional incisions. I partially withdrew the catheter under fluoroscopy and then injected contrast and demonstrated patency of the vena cava however with the presence of fairly numerous large clots in the distal IVC. I then left the guidewire in place and removed the catheter and inserted a new 35-cm HemoSplit catheter over the guidewire. This reached proximally well above the area of partial thrombosis. Repeated contrast injections revealed free flow through a nonobstructed cava. The catheter was simply pushed back up in the old tunnel. The catheter was sutured to the skin with 2-0 Prolene and both lumens were flushed with saline and then hep locked with 100 units per cc heparinized saline. The area was dressed with a standard CVL dressing. The patient was, at that point, awakened and taken to the recovery room in stable condition. I plan for the patient to go to the alf today and come back to dialysis tomorrow. His graft in the left arm is functioning now and it should be used as soon as possible really. He did take his Plavix this morning and I think that I will give him another dose of 75 mg of Plavix in the recovery room and then, of course, he will continue on that. I plan to return him to the hospital and to the operating room again in 2-3 weeks for followup angiogram. At that time, I am quite likely to place a stent in the venous outflow. There were several valves very close to the end of the vein, which makes the area very susceptible to further stricture or stenosis. I would like to probably cross this with a 9 x 8 Fluency stent, which we did not have in stock today nor anything really like it for me to use today. I will plan to remove his tunneled dialysis catheter most likely at the time of that next angiogram if everything is otherwise suitable. PLAN: I believe the patient does need to be fully anticoagulated, probably with Eliquis, but I am not at this time aware of complete list of active medications. It is possible that he could already be on something like Eliquis and I could be unaware of it. I think he probably needs to be on at least 2.5 mg of Eliquis OPERATIVE REPORT [id number] JAVI MORELOS daily. We will explore this further and consult nephrology with that in mind. TRANSINT:[id number] Voice Confirmation ID: [id number] DOCUMENT ID: [id number] ANTONIO KAPLAN MD at 1747 CC: [id number] DICTATION DATE: 04/23/18 1513 ENGINEERING OPERATOR: 04/23/18 1616 [facility] 04/24/[address] [id number] [place] [id number]
[~2018-04-23 05:40] MED LIST changes: +BETAGAN 0.5% OPH5 ML EACH EYE; +CROLOM 4 % OPTH10 ML RIGHT EYE; +PLAVIX75 MG PO
[2018-04-23 06:19] LABS: ANION GAP 13.2 mmol/L (8-16); CALCIUM 8.9 mg/dL (8.5-10.1); CARBON DIOXIDE 25.4 mmol/L (21.0-32.0); CREATININE - SERUM 6.3 mg/dL (0.6-1.3); POTASSIUM - SERUM 4.6 mmol/L (3.5-5.1)
[2018-04-23 07:06] LABS: HEMATOCRIT 32.7 % (42.0-54.0); HEMOGLOBIN 10.4 g/dL (13.5-17.5); LYMPHOCYTES 18.3 % (15-50); MCHC 31.8 g/dL (31.0-37.0); MCV 97.6 fL (80.0-100.0); MEAN PLATELET VOLUME 9.7 fL (7.4-10.4); NEUTROPHILS 72.1 % (40-80); PLATELET COUNT 312 10x3/uL (130-400); RBC 3.35 10x6/uL (4.20-6.10); RDW 13.9 % (11.5-14.5); WBC 9.3 10x3/uL (4.8-10.8)
[2018-04-23 07:25] LABS: INR 0.93 (0.85-1.17); PROTIME 12.1 SECONDS (11.6-15.0)
[2018-04-23 07:26] LABS: APTT 28.1 SECONDS (22.8-39.4)
[2018-04-23 07:47] VITALS: BP 196/78; BMI 27.9
[2018-04-23 16:33] VITALS: BP 117/78; Ht 180.3 cm; Wt 90.0 kg
[2018-04-23 20:39] VITALS: BP 169/64
[2018-04-24 04:00] VITALS: BP 150/60
[2018-04-24 06:44] LABS: ANION GAP 16.9 mmol/L (8-16); CALCIUM 8.8 mg/dL (8.5-10.1); CARBON DIOXIDE 21.9 mmol/L (21.0-32.0); CREATININE - SERUM 6.7 mg/dL (0.6-1.3); POTASSIUM - SERUM 4.8 mmol/L (3.5-5.1)
[2018-04-24 06:57] LABS: EOSINOPHILS 4.8 % (0-7); HEMATOCRIT 32.6 % (42.0-54.0); HEMOGLOBIN 9.9 g/dL (13.5-17.5); IMMATURE GRANULOCYTES 0.6 % (0-5); LYMPHOCYTES 16.9 % (15-50); MCH 30.8 pg (26.0-34.0); MCHC 30.4 g/dL (31.0-37.0); MEAN PLATELET VOLUME 9.8 fL (7.4-10.4); MONOCYTES 9.1 % (2-11); NEUTROPHILS 67.6 % (40-80); PLATELET COUNT 314 10x3/uL (130-400); RBC 3.21 10x6/uL (4.20-6.10); RDW 15.1 % (11.5-14.5); WBC 10.4 10x3/uL (4.8-10.8)
[2018-04-24 07:04] LABS: MCV 101.6 fL (80.0-100.0)
[2018-04-24 07:45] VITALS: BP 166/85
[2018-04-24] MEDS ORDERED: ELIQUIS5 MG PO (07:58)
== END 2018-04-24 09:57 | disposition home or self-care (01) ==
LOC: D.OPS 05:40 → D.M2 16:10 → D.OPS 04-24 09:57
PROVIDERS: Internal Medicine Nephrology; Surgery
DX: T82.868A Thrombosis due to vascular prosthetic devices, implants and grafts, initial encounter (principal); I12.0 Hypertensive chronic kidney disease with stage 5 chronic kidney disease or end stage renal disease; N18.6 End stage renal disease; Z99.2 Dependence on renal dialysis; D68.59 Other primary thrombophilia; E78.5 Hyperlipidemia, unspecified; Z79.02 Long term (current) use of antithrombotics/antiplatelets; Z01.812 Encounter for preprocedural laboratory examination

== ENCOUNTER 2018-07-20 11:43 | Inpatient (IN) | payer MEDICARE ==
[~2018-07-20] VITALS: Ht 180.3 cm; Wt 98.7 kg
--- NOTE | ~2018-07-20 | MORECARE ---
CASE MANAGEMENT DISCHARGE SUMMARY PATIENT: JAVI MORELOS UNIT: [id number] ADM DATE: 07/20/18 AGE: 72 : 44 SEX: M ROOM/BED: D.2133 AUTHOR: JORGE LUIS ACHARYA PHYSICIAN: REFERRING PHYSICIAN: MARILUZ RUBY MD DATE OF SERVICE: 07/23/18 Discharge Plan Patient Name: JAVI MORELOS [facility] [facility] 1945 Planned Disposition: [facility] Anticipated Discharge Date: 07/23/18 Discharge Date: Expected LOS: 3 Initial Reviewer: [email or web address] Initial Review Date: 07/20/2018 Generated: 07/23/18 10:58 am Patient Name: JAVI MORELOS Page [id number] at 0958 All edits/amendments must be made on the electronic document DICTATION DATE: 07/23/18956 CLINICAL PROJECT COORDINATOR: ZULMA 07/23/18956 RPT#: [id number] DC DATE: STATUS: ADM IN [facility] [address] [place] [address] END OF REPORT
--- NOTE | ~2018-07-20 | MORECARE ---
CASE MANAGEMENT DISCHARGE SUMMARY PATIENT: JAVI MORELOS UNIT: [id number] ADM DATE: 07/20/18 AGE: 72 : 44 SEX: M ROOM/BED: D.2133 AUTHOR: JORGE LUIS ACHARYA PHYSICIAN: REFERRING PHYSICIAN: MARILUZ RBUY MD DATE OF SERVICE: 07/23/18 Discharge Plan Patient Name: JAVI MORELOS Facility: [facility]:[place] : 1945 Planned Disposition: Nursing Facility [facility] Cert Anticipated Discharge Date: 07/23/18 Discharge Date: Expected LOS: 3 Initial Reviewer: [email or web address] Initial Review Date: 07/20/2018 Generated: 07/23/18 11:05 am DCPIA - Discharge Planning Initial Assessment Updated by [email or web address]: Sacha Ying on 07/23/18 10:00 am * Is the patient Alert and Oriented? Yes * How many steps to enter\exit or inside your home? NONE * PCP [facility] * Pharmacy [facility] * Preadmission Environment [employer] Super[employer] Home * Facility Name [facility], * ADLs Partial Dependent * Partial ADLs (Assistance needed) Dressing Medication Management * Equipment Other Oxygen Walker Wheelchair * Other Equipment OXYGEN AT NIGHT ALL MEDICAL EQUIPMENT PROVIDED BY FACILITY * List name and contact numbers for known caregivers / representatives who currently or will assist patient after discharge: [facility] [place] [phone] * Verbal permission to speak to the caregivers and representatives has been obtained from the patient. N/A * Community resources currently utilized Other * Please name any agencies selected above. OUTPATIENT DIALYSIS, [facility], TTS, 1130AM, SNF TRANSPORT * Additional services required to return to the preadmission environment? No * Can the patient safely return to the preadmission environment? Yes * Has this patient been hospitalized within the prior 30 days at any hospital? No Last DP export: 07/23/18 8:58 a Patient Name: JAVI MORELOS Page 25020 at 1005 All edits/amendments must be made on the electronic document DICTATION DATE: 07/23/18 1005 MACHINIST INSTRUCTOR: ZULMA 07/23/18 1005 RPT#: [id number] DC DATE: STATUS: ADM IN [facility] [address] [place] [address] END OF REPORT
--- NOTE | ~2018-07-20 | MORECARE ---
CASE MANAGEMENT DISCHARGE SUMMARY PATIENT: JAVI MORELOS UNIT: [id number] ADM DATE: 07/20/18 AGE: 72 : 44 SEX: M ROOM/BED: D.2423 AUTHOR: JORGE LUIS ACHARYA PHYSICIAN: REFERRING PHYSICIAN: MARILUZ RUBY MD DATE OF SERVICE: 07/23/18 Discharge Plan Patient Name: JAVI MORELOS [facility] [facility] 1945 Planned Disposition: Nursing Facility [facility] Cert Anticipated Discharge Date: 07/23/18 Discharge Date: Expected LOS: 3 Initial Reviewer: [email or web address] Initial Review Date: 07/20/2018 Generated: 07/23/18 11:50 am Comments DCP- Discharge Planning Updated by [email or web address]: Sacha Ying on 07/23/18 9:[address] Patient Name: JAVI MORELOS Admission Status: ER Accout number: [id number] Admission Date: 07-20-2018 : 1945 Admission Diagnosis: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 PT REPORTS LIVING AT [facility] IN [employer] C[facility]. PT HAS WALKER, WHEELCHAIR AND OXYGEN AT NIGHT PROVIDED BY FACILITY. PT REPORTS HE DOES NOT WALK MUCH, JUST UP AND DOWN THE [place] AT THE [facility]. PT GOES TO [facility] ON TTS SCHEDULE, 1130AM, [facility] VAN TRANSPORTATION. CM DISCUSSED AVAILABILITY OF HOME HEALTH, REHAB SERVICES AND MEDICAL EQUIPMENT. PT DENIES DISCHARGE NEEDS, REPORTS THE [facility] WILL PICK HIM UP FOR DISCHARGE HOME AND PT REPORTS ALREADY CALLING FOR THE VAN. IMPORTANT MESSAGE FROM MEDICARE PROVIDED AND EXPLAINED. CM CALLED [facility], , SPOKE TO DANII WHO REPORTS THE WILL ACCEPT PT BACK TODAY AND WILL SEND VAN TO GAS METER REPAIRER. CM FAXED DISCHARGE INFORMATION TO [facility] AT [phone]. BILLET HEADER NURSE NOTIFIED. NURSE REPORT TO BE CALLED TO DANII AT [facility], . [facility] TO ARRANGE VAN TRANSPORTATION. Semiconductor Bonder: Sacha Ying DCPIA - Discharge Planning Initial Assessment Updated by [email or web address]: Sacha Ying on 07/23/18 10:00 am * Is the patient Alert and Oriented? Yes * How many steps to enter\exit or inside your home? NONE * PCP DR. RICHARD, [facility] * Pharmacy [facility] * Preadmission Environment [employer] * Facility Name [facility], * ADLs Partial Dependent * Partial ADLs (Assistance needed) Dressing Medication Management * Equipment Other Oxygen Walker Wheelchair * Other Equipment OXYGEN AT NIGHT ALL MEDICAL EQUIPMENT PROVIDED BY FACILITY * List name and contact numbers for known caregivers / representatives who currently or will assist patient after discharge: [facility] [phone] * Verbal permission to speak to the caregivers and representatives has been obtained from the patient. N/A * Community resources currently utilized Other * Please name any agencies selected above. OUTPATIENT DIALYSIS, [facility], TTS, 1130AM, [facility] TRANSPORT * Additional services required to return to the preadmission environment? No * Can the patient safely return to the preadmission environment? Yes * Has this patient been hospitalized within the prior 30 days at any hospital? No Coverage Notice Reviewer: [email or web address] - Sacha Ying Notice Issued Date-Time: 07/23/2018 9:44 Notice Type: IM Discharge Notice Notice Delivered To: Patient Relationship to Patient: Aircraft Mechanic Electrical And Radio Name: Delivery Method: HAND - Hand Delivered Estefania Days: Prior Verbal Notification: Recipient Understood Notice: Yes Recipient Signature: Yes Med Rec Note Co-signed by Attending: Coverage Notice Comment: Last DP export: 07/23/18 9:22 a Patient Name: JAVI MORELOS Page 53366 at 1050 All edits/amendments must be made on the electronic document DICTATION DATE: 07/23/18 1050 SELF PAY SPECIALIST: ZULMA 07/23/18 1050 RPT#: [id number] DC DATE: STATUS: ADM IN [facility] [address] [id number] END OF REPORT
--- NOTE | ~2018-07-20 | MORECARE ---
CASE MANAGEMENT DISCHARGE SUMMARY PATIENT: JAVI MORELOS UNIT: [id number] ADM DATE: 07/20/18 AGE: 72 : 44 SEX: M ROOM/BED: D.7563 AUTHOR: JORGE LUIS ACHARYA PHYSICIAN: REFERRING PHYSICIAN: MARILUZ RUBY MD DATE OF SERVICE: 07/23/18 Discharge Plan Patient Name: JAVI MORELOS [facility] [facility] 1945 Planned Disposition: Nursing Facility [facility] Cert Anticipated Discharge Date: 07/23/18 Discharge Date: Expected LOS: 3 Initial Reviewer: [email or web address] Initial Review Date: 07/20/2018 Generated: 07/23/18 11:21 am Comments DCP- Discharge Planning Updated by [email or web address]: Sacha Ying on 07/23/18 9:[address] Patient Name: JAVI MORELOS Admission Status: ER Accout number: [id number] Admission Date: 07-20-2018 : 1945 Admission Diagnosis:THROMBOSIS DUE TO VASCULAR PROSTH DEV/GRFT, INIT Attending: MARILUZ RUBY Current LOS: 3 Anticipated DC Date: 07-23-2018 Planned Disposition: Nursing Facility [facility] Cert Primary Insurance: MEDICARE A & B PLANNED EXTERNAL PROVIDER: [facility] LONG TERM CARE MEDICAID BED Discharge Planning Comments: CM MET WITH PT IN ROOM TO DISCUSS DISCHARGE PLANNING AND NEEDS. PT REPORTS LIVING AT [facility] IN [employer] CARE. PT HAS WALKER, WHEELCHAIR AND OXYGEN AT NIGHT PROVIDED BY FACILITY. PT REPORTS HE DOES NOT WALK MUCH, JUST UP AND DOWN THE [place] AT THE [facility]. PT GOES TO [facility] ON TTS SCHEDULE, 1130AM, [facility] VAN TRANSPORTATION. CM DISCUSSED AVAILABILITY OF HOME HEALTH, REHAB SERVICES AND MEDICAL EQUIPMENT. PT DENIES DISCHARGE NEEDS, REPORTS THE [facility] WILL PICK HIM UP FOR DISCHARGE HOME AND PT REPORTS ALREADY CALLING FOR THE VAN. IMPORTANT MESSAGE FROM MEDICARE PROVIDED AND EXPLAINED. CM CALLED [facility], , SPOKE TO DANII WHO REPORTS THE WILL ACCEPT PT BACK TODAY AND WILL SEND VAN TO CONCRETE TESTER. CM FAXED DISCHARGE INFORMATION TO [facility]EN [facility]ENDEN[facility]ALL AT [phone]. OIL DRILLING ENGINEER NURSE NOTIFIED. NURSE REPORT TO BE CALLED TO [facility] AT [phone]. [facility] TO ARRANGE VAN TRANSPORTATION. Tier Lift Operator: Sacha Ying DCPIA - Discharge Planning Initial Assessment Updated by [email or web address]: Sacha Ying on 07/23/18 10:00 am * Is the patient Alert and Oriented? Yes * How many steps to enter\exit or inside your home? NONE * PCP DR. RICHARD, [facility] * Pharmacy [facility] * Preadmission Environment Intermediate Halfway * Facility Name [facility], * ADLs Partial Dependent * Partial ADLs (Assistance needed) Dressing Medication Management * Equipment Other Oxygen Walker Wheelchair * Other Equipment OXYGEN AT NIGHT ALL MEDICAL EQUIPMENT PROVIDED BY FACILITY * List name and contact numbers for known caregivers / representatives who currently or will assist patient after discharge: [facility] [phone] * Verbal permission to speak to the caregivers and representatives has been obtained from the patient. N/A * Community resources currently utilized Other * Please name any agencies selected above. OUTPATIENT DIALYSIS, [facility], TTS, 1130AM, [facility] TRANSPORT * Additional services required to return to the preadmission environment? No * Can the patient safely return to the preadmission environment? Yes * Has this patient been hospitalized within the prior 30 days at any hospital? No External Providers External Provider: [facility] Next Contact Date: 07/23/2018 Service Request Date: Service Type: Resolution: Reviewer: Comments: Coverage Notice Reviewer: [email or web address] - Sacha Ying Notice Issued Date-Time: 07/23/2018 9:44 Notice Type: IM Discharge Notice Notice Delivered To: Patient Relationship to Patient: Convolute Tube Winder Name: Delivery Method: HAND - Hand Delivered Estefania Days: Prior Verbal Notification: Recipient Understood Notice: Yes Recipient Signature: Yes Med Rec Note Co-signed by Attending: Coverage Notice Comment: Last DP export: 07/23/18 9:05 a Patient Name: JAVI MORELOS Page [phone] at 1022 All edits/amendments must be made on the electronic document DICTATION DATE: 07/23/18 1021 SKI TOW OPERATOR: ZULMA 07/23/18 1021 RPT#: [id number] DC DATE: STATUS: ADM IN [address] [place] [address] END OF REPORT
[~2018-07-20 11:43] MED LIST changes: +ELIQUIS5 MG PO
[2018-07-20 12:53] LABS: BASOPHILS 0.3 % (0-2); EOSINOPHILS 5.1 % (0-7); HEMATOCRIT 30.5 % (42.0-54.0); HEMOGLOBIN 9.2 g/dL (13.5-17.5); IMMATURE GRANULOCYTES 0.5 % (0-5); LYMPHOCYTES 19.7 % (15-50); MCH 31.1 pg (26.0-34.0); MCHC 30.2 g/dL (31.0-37.0); MEAN PLATELET VOLUME 9.9 fL (7.4-10.4); MONOCYTES 12.1 % (2-11); NEUTROPHILS 62.3 % (40-80); RBC 2.96 10x6/uL (4.20-6.10); RDW 14.3 % (11.5-14.5); WBC 10.9 10x3/uL (4.8-10.8)
[2018-07-20 12:54] LABS: PLATELET COUNT 386 10x3/uL (130-400)
[2018-07-20 12:59] LABS: INR 1.42 (0.85-1.17); PROTIME 16.8 SECONDS (11.6-15.0)
[2018-07-20 13:03] LABS: ALBUMIN 2.8 g/dL (3.4-5.0); ANION GAP 16.6 mmol/L (8-16); BILIRUBIN - TOTAL 0.16 mg/dL (0.2-1.3); CALCIUM 8.4 mg/dL (8.5-10.1); CARBON DIOXIDE 25.9 mmol/L (21.0-32.0); CREATININE - SERUM 6.8 mg/dL (0.6-1.3); POTASSIUM - SERUM 4.5 mmol/L (3.5-5.1); PROTEIN - SERUM 6.2 g/dL (6.4-8.2)
[2018-07-20 14:34] VITALS: BP 170/70; BMI 30.6
[2018-07-20 16:01] VITALS: BP 170/70
[2018-07-20] MEDS ORDERED: CARAFATE1 G PO (17:47)
[2018-07-20] MEDS ORDERED: ZOFRAN4 MG PO (17:54)
[2018-07-20 21:10] VITALS: BP 142/49
[2018-07-21] VITALS: BP 139/68
[2018-07-21 04:55] LABS: BASOPHILS 0.2 % (0-2); EOSINOPHILS 4.2 % (0-7); IMMATURE GRANULOCYTES 0.2 % (0-5); LYMPHOCYTES 18.3 % (15-50); MCH 30.9 pg (26.0-34.0); MCV 103.1 fL (80.0-100.0); MEAN PLATELET VOLUME 9.9 fL (7.4-10.4); MONOCYTES 10.5 % (2-11); NEUTROPHILS 66.6 % (40-80); PLATELET COUNT 371 10x3/uL (130-400); RBC 2.91 10x6/uL (4.20-6.10); RDW 14.3 % (11.5-14.5)
[2018-07-21 05:13] LABS: ANION GAP 16.5 mmol/L (8-16); CALCIUM 8.5 mg/dL (8.5-10.1); CARBON DIOXIDE 24.9 mmol/L (21.0-32.0); CREATININE - SERUM 6.9 mg/dL (0.6-1.3); POTASSIUM - SERUM 4.4 mmol/L (3.5-5.1)
[2018-07-21 05:44] VITALS: BP 125/64
[2018-07-21 11:36] LABS: BASOPHILS 0.2 % (0-2); EOSINOPHILS 1.1 % (0-7); HEMATOCRIT 27.9 % (42.0-54.0); HEMOGLOBIN 8.3 g/dL (13.5-17.5); IMMATURE GRANULOCYTES 0.2 % (0-5); MCHC 29.7 g/dL (31.0-37.0); MCV 104.1 fL (80.0-100.0); MONOCYTES 1.5 % (2-11); PLATELET COUNT 375 10x3/uL (130-400); RBC 2.68 10x6/uL (4.20-6.10); RDW 14.4 % (11.5-14.5); WBC 13.3 10x3/uL (4.8-10.8)
[2018-07-21 13:41] VITALS: Ht 180.3 cm; Wt 98.7 kg
[2018-07-21 20:00] VITALS: BP 149/61
[2018-07-21 21:22] VITALS: BP 149/61
[2018-07-22] VITALS: BP 173/56
[2018-07-22 04:00] VITALS: BP 160/67
[2018-07-22 05:53] LABS: BASOPHILS 0.1 % (0-2); EOSINOPHILS 0 % (0-7); HEMATOCRIT 31.2 % (42.0-54.0); HEMOGLOBIN 9.9 g/dL (13.5-17.5); IMMATURE GRANULOCYTES 0.3 % (0-5); MCH 30.3 pg (26.0-34.0); MCHC 31.7 g/dL (31.0-37.0); MONOCYTES 11.4 % (2-11); NEUTROPHILS 82.2 % (40-80); PLATELET COUNT 332 10x3/uL (130-400); RDW 17.3 % (11.5-14.5); WBC 15.4 10x3/uL (4.8-10.8)
[2018-07-22 05:55] LABS: MCV 95.4 fL (80.0-100.0); RBC 3.27 10x6/uL (4.20-6.10)
[2018-07-22 05:56] LABS: ANION GAP 14.5 mmol/L (8-16); CALCIUM 8.8 mg/dL (8.5-10.1); CARBON DIOXIDE 26.5 mmol/L (21.0-32.0); CREATININE - SERUM 5.4 mg/dL (0.6-1.3)
[2018-07-22 18:33] VITALS: BP 122/68
[2018-07-22 20:00] VITALS: BP 156/64
[2018-07-23 04:00] VITALS: BP 147/60
[2018-07-23 05:56] LABS: BASOPHILS 0.2 % (0-2); EOSINOPHILS 0.7 % (0-7); HEMATOCRIT 35.2 % (42.0-54.0); HEMOGLOBIN 10.9 g/dL (13.5-17.5); IMMATURE GRANULOCYTES 0.4 % (0-5); LYMPHOCYTES 14.4 % (15-50); MCH 30.2 pg (26.0-34.0); MEAN PLATELET VOLUME 10.4 fL (7.4-10.4); MONOCYTES 11.1 % (2-11); NEUTROPHILS 73.2 % (40-80); PLATELET COUNT 379 10x3/uL (130-400); RBC 3.61 10x6/uL (4.20-6.10); RDW 16.7 % (11.5-14.5); WBC 13.7 10x3/uL (4.8-10.8)
[2018-07-23 06:08] LABS: MCV 97.5 fL (80.0-100.0)
[2018-07-23 06:18] LABS: ANION GAP 18.5 mmol/L (8-16); CALCIUM 9.1 mg/dL (8.5-10.1); CARBON DIOXIDE 27.1 mmol/L (21.0-32.0); CREATININE - SERUM 6.2 mg/dL (0.6-1.3)
[2018-07-23 06:28] LABS: POTASSIUM - SERUM 4.6 mmol/L (3.5-5.1)
[2018-07-23 09:33] VITALS: BP 165/57
== END 2018-07-23 14:10 | DRG 252 ==
LOC: D.ER 11:43 → D.EDHOLD 12:51 → D.M2 12:51
PROVIDERS: Anesthesiology; Family Medicine; Internal Medicine Nephrology; Surgery
PROC: 06H033Z Insertion of Infusion Device into Inferior Vena Cava, Percutaneous Approach (ICD-10-PCS; 2018-07-21)
PROC: B5191ZA Fluoroscopy of Inferior Vena Cava using Low Osmolar Contrast, Guidance (ICD-10-PCS; 2018-07-21)
PROC: B5191ZZ Fluoroscopy of Inferior Vena Cava using Low Osmolar Contrast (ICD-10-PCS; 2018-07-21)
PROC: 03C83ZZ Extirpation of Matter from Left Brachial Artery, Percutaneous Approach (ICD-10-PCS; principal; 2018-07-21 07:00)
PROC: 03773ZZ Dilation of Right Brachial Artery, Percutaneous Approach (ICD-10-PCS; 2018-07-21 07:00)
PROC: 3E05317 Introduction of Other Thrombolytic into Peripheral Artery, Percutaneous Approach (ICD-10-PCS; 2018-07-21 07:00)
PROC: 0JH63XZ Insertion of Tunneled Vascular Access Device into Chest Subcutaneous Tissue and Fascia, Percutaneous Approach (ICD-10-PCS; 2018-07-21 07:00)
DX: T82.868A Thrombosis due to vascular prosthetic devices, implants and grafts, initial encounter (principal); N18.6 End stage renal disease; I12.0 Hypertensive chronic kidney disease with stage 5 chronic kidney disease or end stage renal disease; D68.59 Other primary thrombophilia; Y83.8 Other surgical procedures as the cause of abnormal reaction of the patient, or of later complication, without mention of misadventure at the time of the procedure; Z99.2 Dependence on renal dialysis; E78.5 Hyperlipidemia, unspecified; D63.1 Anemia in chronic kidney disease; F03.90 Unspecified dementia, unspecified severity, without behavioral disturbance, psychotic disturbance, mood disturbance, and anxiety; D72.829 Elevated white blood cell count, unspecified; I25.10 Atherosclerotic heart disease of native coronary artery without angina pectoris

== ENCOUNTER 2018-08-03 19:41 | Inpatient (IN) | payer MEDICARE ==
[~2018-08-03] VITALS: Ht 180.3 cm; Wt 90.9 kg
--- NOTE | ~2018-08-03 | MORECARE ---
CASE MANAGEMENT DISCHARGE SUMMARY PATIENT: JAVI MORELOS UNIT: [id number] ADM DATE: 08/03/18 AGE: 72 : 44 SEX: M ROOM/BED: D.2103 AUTHOR: PATRIZIA,DOC PHYSICIAN: REFERRING PHYSICIAN: MARILUZ RUBY MD DATE OF SERVICE: 08/07/18 Discharge Plan Patient Name: JAVI MORELOS Facility: [facility]:[place] : 1945 Planned Disposition: Nursing Facility CRUZ Cert Anticipated Discharge Date: 08/07/18 Discharge Date: 08/07/2018 Expected LOS: 4 Initial Reviewer: [email or web address] Initial Review Date: 08/03/2018 Generated: 08/07/18 7:11 pm Comments DCP- Discharge Planning Updated by [email or web address]: Shivani Francisco on 08/07/18 5:[address] LATE ENTRY 1055 TC TO [facility] REGARDING DISCHARGE BACK TO FACILITY AFTER HD TODAY. PLAN IS FOR FACILITY TO RECEIVE AFTER 1600. TC [phone] FAX [phone]. FAXED DISCHARGE SUMMARY. 1500 RECEIVED TC FROM DON AT FACILITY REGARDING TRANSPORTATION. PATIENT IS ON 3-4 LITERS OF NASAL OXYGEN. HE ALSO HAS A LEFT FEMORAL TUNNELLED CATHER FOR DIALYSIS HE HAS CLOTTED ACCESS AND OTHER COMPLICATIONS OF SURGICALLY CREATED AV SHUNT. HE IS OFF HIS ANTICOAGULANTS. SAFER TO TRANSPORT VIA AMBUALNCE SO NOT TO CLOT FEMORAL CATH ON TRIP 1 AND 1/2 HRS. DCPIA - Discharge Planning Initial Assessment Updated by [email or web address]: Shivani Francisco on 08/07/18 6:04 pm * Is the patient Alert and Oriented? Yes * How many steps to enter\exit or inside your home? NONE * PCP DR JANENE M[facility]ENHALL * Pharmacy [facility]ED [facility] * Preadmission Environment [facility] * Facility Name [facility] * ADLs Partial Dependent * Partial ADLs (Assistance needed) Bathing Dressing Medication Management * Other Equipment OXYGEN, WALKER, WHEELCHAIR * Verbal permission to speak to the caregivers and representatives has been obtained from the patient. No * Additional services required to return to the preadmission environment? No * Can the patient safely return to the preadmission environment? Yes * Has this patient been hospitalized within the prior 30 days at any hospital? Yes Last DP export: 08/07/18 5:04 Patient Name: JAVI MORELOS Page [phone] at 1811 All edits/amendments must be made on the electronic document DICTATION DATE: 08/07/181809 ELECTRICAL TROUBLESHOOTER: ZULMA 08/07/181809 RPT#: [id number] DC DATE:08/07/18 STATUS: DIS IN [facility] [address] [place] [address] END OF REPORT
--- NOTE | ~2018-08-03 | MORECARE ---
CASE MANAGEMENT DISCHARGE SUMMARY PATIENT: JAVI MORELOS UNIT: [id number] ADM DATE: 08/03/18 AGE: 72 : 44 SEX: M ROOM/BED: D.2103 AUTHOR: JORGE LUIS ACHARYA PHYSICIAN: REFERRING PHYSICIAN: MARILUZ RUBY MD DATE OF SERVICE: 08/07/18 Discharge Plan Patient Name: JAVI MORELOS [facility] [facility] 1945 Planned Disposition: Nursing Facility CRUZ Cert Anticipated Discharge Date: 08/07/18 Discharge Date: 08/07/2018 Expected LOS: 4 Initial Reviewer: [email or web address] Initial Review Date: 08/03/2018 Generated: 08/07/18 7:04 pm Comments DCP- Discharge Planning Updated by [email or web address]: Shivani Francisco on 08/07/18 5:[address] LATE ENTRY 1055 TC TO [facility] REGARDING DISCHARGE BACK TO FACILITY AFTER HD TODAY. PLAN IS FOR FACILITY TO RECEIVE AFTER 1600. TC [phone] FAX [phone]. FAXED DISCHARGE SUMMARY. 1500 RECEIVED TC FROM DON AT FACILITY REGARDING TRANSPORTATION. PATIENT IS ON 3-4 LITERS OF NASAL OXYGEN. HE ALSO HAS A LEFT FEMORAL TUNNELLED CATHER FOR DIALYSIS HE HAS CLOTTED ACCESS AND OTHER COMPLICATIONS OF SURGICALLY CREATED AV SHUNT. HE IS OFF HIS ANTICOAGULANTS. SAFER TO TRANSPORT VIA AMBUALNCE SO NOT TO CLOT FEMORAL CATH ON TRIP 1 AND 1/2 HRS. Last DP export: 08/07/18 4:57 Patient Name: JAVI MORELOS Page 88630 at 1804 All edits/amendments must be made on the electronic document DICTATION DATE: 08/07/181802 VENEER STAPLER: ZULMA 08/07/181802 RPT#: [id number] DC DATE:08/07/18 STATUS: DIS IN [facility] [address] [place] [address] END OF REPORT
--- NOTE | ~2018-08-03 | MORECARE ---
CASE MANAGEMENT DISCHARGE SUMMARY PATIENT: JAVI MORELOS UNIT: [id number] ADM DATE: 08/03/18 AGE: 72 : 44 SEX: M ROOM/BED: D.2103 AUTHOR: PATRIZIA,DOC PHYSICIAN: REFERRING PHYSICIAN: MARILUZ RUBY MD DATE OF SERVICE: 08/09/18 Discharge Plan Patient Name: JAVI MORELOS Facility: [facility]:[place] : 1945 Planned Disposition: Nursing Facility CRUZ Cert Anticipated Discharge Date: 08/07/18 Discharge Date: 08/07/2018 Expected LOS: 4 Initial Reviewer: [email or web address] Initial Review Date: 08/03/2018 Generated: 08/09/18 10:03 am Comments DCP- Discharge Planning Updated by [id number]: Shivani Francisco on 08/07/18 5:[address] LATE ENTRY 1055 TC TO [facility] REGARDING DISCHARGE BACK TO FACILITY AFTER HD TODAY. PLAN IS FOR FACILITY TO RECEIVE AFTER 1600. TC [phone] FAX [phone]. FAXED DISCHARGE SUMMARY. 1500 RECEIVED TC FROM DON AT FACILITY REGARDING TRANSPORTATION. PATIENT IS ON 3-4 LITERS OF NASAL OXYGEN. HE ALSO HAS A LEFT FEMORAL TUNNELLED CATHER FOR DIALYSIS HE HAS CLOTTED ACCESS AND OTHER COMPLICATIONS OF SURGICALLY CREATED AV SHUNT. HE IS OFF HIS ANTICOAGULANTS. SAFER TO TRANSPORT VIA AMBUALNCE SO NOT TO CLOT FEMORAL CATH ON TRIP 1 AND 1/2 HRS. DCPIA - Discharge Planning Initial Assessment Updated by [id number]: Shivani Francisco on 08/07/18 6:04 pm * Is the patient Alert and Oriented? Yes * How many steps to enter\exit or inside your home? NONE * PCP DR JANENE MENDENHALL * Pharmacy CONTRACTED [facility]RU [facility] * Preadmission Environment [facility] Facility * Facility Name [facility] * ADLs Partial Dependent * Partial ADLs (Assistance needed) Bathing Dressing Medication Management * Other Equipment OXYGEN, WALKER, WHEELCHAIR * Verbal permission to speak to the caregivers and representatives has been obtained from the patient. No * Additional services required to return to the preadmission environment? No * Can the patient safely return to the preadmission environment? Yes * Has this patient been hospitalized within the prior 30 days at any hospital? Yes Last DP export: 08/07/18 5:11 Patient Name: JAVI MORELOS Page 29606 at 0903 All edits/amendments must be made on the electronic document DICTATION DATE: 08/09/18902 FISCAL ACCOUNTANT: ZULMA 08/09/18902 RPT#: [id number] DC DATE:08/07/18 STATUS: DIS IN [facility] [address] [place] [address] END OF REPORT
--- NOTE | ~2018-08-03 | MORECARE ---
CASE MANAGEMENT DISCHARGE SUMMARY PATIENT: JAVI MORELOS UNIT: [id number] ADM DATE: 08/03/18 AGE: 72 : 44 SEX: M ROOM/BED: D.2103 AUTHOR: PATRIZIA,DOC PHYSICIAN: REFERRING PHYSICIAN: MARILUZ RUBY MD DATE OF SERVICE: 08/11/18 Discharge Plan Patient Name: JAVI MORELOS Facility: [facility]:[place] : 1945 Planned Disposition: Nursing Facility CRUZ Cert Anticipated Discharge Date: 08/07/18 Discharge Date: 08/07/2018 Expected LOS: 4 Initial Reviewer: [email or web address] Initial Review Date: 08/03/2018 Generated: 08/11/18 4:36 pm Comments DCP- Discharge Planning Updated by [email or web address]: Jeni Nowak on 08/11/18 2:[address] Per coders request CM called Blaise Gonzales and verified that patient was admitted to a Medicaid (exterminator care) bed. DCP- Discharge Planning Updated by [id number]: Shivani Francisco on 08/07/18 5:[address] LATE ENTRY 1055 TC TO [facility] REGARDING DISCHARGE BACK TO FACILITY AFTER HD TODAY. PLAN IS FOR FACILITY TO RECEIVE AFTER 1600. TC [phone] FAX [phone]. FAXED DISCHARGE SUMMARY. 1500 RECEIVED TC FROM DON AT FACILITY REGARDING TRANSPORTATION. PATIENT IS ON 3-4 LITERS OF NASAL OXYGEN. HE ALSO HAS A LEFT FEMORAL TUNNELLED CATHER FOR DIALYSIS HE HAS CLOTTED ACCESS AND OTHER COMPLICATIONS OF SURGICALLY CREATED AV SHUNT. HE IS OFF HIS ANTICOAGULANTS. SAFER TO TRANSPORT VIA AMBUALNCE SO NOT TO CLOT FEMORAL CATH ON TRIP 1 AND 1/2 HRS. DCPIA - Discharge Planning Initial Assessment Updated by [email or web address]: Shivani Francisco on 08/07/18 6:04 pm * Is the patient Alert and Oriented? Yes * How many steps to enter\exit or inside your home? NONE * PCP DR JANENE [facility]ONZAL[facility] * Pharmacy CONTRACTED [facility] * Preadmission Environment [facility] * Facility Name [facility] * ADLs Partial Dependent * Partial ADLs (Assistance needed) Bathing Dressing Medication Management * Other Equipment OXYGEN, WALKER, WHEELCHAIR * Verbal permission to speak to the caregivers and representatives has been obtained from the patient. No * Additional services required to return to the preadmission environment? No * Can the patient safely return to the preadmission environment? Yes * Has this patient been hospitalized within the prior 30 days at any hospital? Yes Last DP export: 08/09/18 8:03 Patient Name: JAVI MORELOS Page 59887 at 1536 All edits/amendments must be made on the electronic document DICTATION DATE: 08/11/18 1536 LIFE TRAINER: ZULMA 08/11/18 1536 RPT#: [id number] DC DATE:08/07/18 STATUS: DIS IN [facility] [address] [place] [address] END OF REPORT
--- NOTE | ~2018-08-03 | MORECARE ---
CASE MANAGEMENT DISCHARGE SUMMARY PATIENT: JAVI MORELOS UNIT: [id number] ADM DATE: 08/03/18 AGE: 72 : 44 SEX: M ROOM/BED: D.2103 AUTHOR: JORGE LUIS ACHARYA PHYSICIAN: REFERRING PHYSICIAN: MARILUZ RUBY MD DATE OF SERVICE: 08/07/18 Discharge Plan Patient Name: JAVI MORELOS [facility] [facility] 1945 Planned Disposition: Nursing Facility [facility] Anticipated Discharge Date: 08/07/18 Discharge Date: 08/07/2018 Expected LOS: 4 Initial Reviewer: [email or web address] Initial Review Date: 08/03/2018 Generated: 08/07/18 6:57 pm Patient Name: JAVI MORELOS Page 96689 at 7768 All edits/amendments must be made on the electronic document DICTATION DATE: 08/07/181756 HAT AND CAP DRYING ROOM ATTENDANT: ZULMA 08/07/181756 RPT#: [id number] DC DATE:08/07/18 STATUS: DIS IN [facility] [address] [place] [address] END OF REPORT
[~2018-08-03 19:41] MED LIST changes: +CARAFATE1 G PO
[2018-08-03 21:09] VITALS: BP 108/42
[2018-08-04 00:40] LABS: BASOPHILS 0.2 % (0-2); EOSINOPHILS 0.1 % (0-7); IMMATURE GRANULOCYTES 1.6 % (0-5); MCH 31.1 pg (26.0-34.0); MCHC 30.9 g/dL (31.0-37.0); MCV 100.7 fL (80.0-100.0); MONOCYTES 4.5 % (2-11); NEUTROPHILS 85.6 % (40-80); PLATELET COUNT 450 10x3/uL (130-400); RDW 17.1 % (11.5-14.5)
[2018-08-04 00:42] LABS: HEMATOCRIT 15.2 % (42.0-54.0); HEMOGLOBIN 4.7 g/dL (13.5-17.5); RBC 1.51 10x6/uL (4.20-6.10)
[2018-08-04 01:57] VITALS: BP 108/42
[2018-08-04 04:00] VITALS: BP 146/60
[2018-08-04 09:00] VITALS: BP 114/67
[2018-08-04 12:18] VITALS: BP 138/78
[2018-08-04 12:26] LABS: BASOPHILS 0.2 % (0-2); EOSINOPHILS 0.2 % (0-7); IMMATURE GRANULOCYTES 0.8 % (0-5); LYMPHOCYTES 10.3 % (15-50); MCH 30.3 pg (26.0-34.0); MCHC 30.7 g/dL (31.0-37.0); MONOCYTES 7.1 % (2-11); NEUTROPHILS 81.4 % (40-80); RDW 17.2 % (11.5-14.5)
[2018-08-04 12:29] LABS: HEMATOCRIT 23.1 % (42.0-54.0); HEMOGLOBIN 7.1 g/dL (13.5-17.5); MCV 98.7 fL (80.0-100.0); PLATELET COUNT 312 10x3/uL (130-400); RBC 2.34 10x6/uL (4.20-6.10)
[2018-08-04 14:38] VITALS: Ht 180.3 cm; Wt 90.9 kg
[2018-08-04 15:51] LABS: BASOPHILS 0.2 % (0-2); EOSINOPHILS 0.2 % (0-7); HEMATOCRIT 23.7 % (42.0-54.0); HEMOGLOBIN 7.8 g/dL (13.5-17.5); IMMATURE GRANULOCYTES 1.3 % (0-5); MCH 30.8 pg (26.0-34.0); MCHC 32.9 g/dL (31.0-37.0); MONOCYTES 9.8 % (2-11); NEUTROPHILS 80.5 % (40-80); PLATELET COUNT 306 10x3/uL (130-400); RBC 2.53 10x6/uL (4.20-6.10); RDW 16.8 % (11.5-14.5)
[2018-08-04 15:52] LABS: MCV 93.7 fL (80.0-100.0)
[2018-08-04 18:44] VITALS: BP 114/73
[2018-08-04 20:00] VITALS: BP 121/58
[2018-08-04 21:26] LABS: HEMATOCRIT 25.5 % (42.0-54.0); HEMOGLOBIN 8.4 g/dL (13.5-17.5)
[2018-08-05 00:09] VITALS: BP 165/62
[2018-08-05 04:00] VITALS: BP 163/57
[2018-08-05 04:33] LABS: HEMOGLOBIN 8.4 g/dL (13.5-17.5)
[2018-08-05 04:44] LABS: APTT 29.2 SECONDS (22.8-39.4); INR 1.3 (0.85-1.17); PROTIME 15.6 SECONDS (11.6-15.0)
[2018-08-05 04:56] LABS: ALBUMIN 2.6 g/dL (3.4-5.0); ANION GAP 14.8 mmol/L (8-16); BILIRUBIN - TOTAL 0.18 mg/dL (0.2-1.3); CALCIUM 8.6 mg/dL (8.5-10.1); CARBON DIOXIDE 24.3 mmol/L (21.0-32.0); CREATININE - SERUM 6.2 mg/dL (0.6-1.3); POTASSIUM - SERUM 4.1 mmol/L (3.5-5.1)
[2018-08-05 06:13] LABS: APPEARANCE CLEAR (CLEAR); COLOR STRAW (YELLOW); NITRITE NEGATIVE (NEGATIVE)
[2018-08-05 06:14] LABS: BILIRUBIN NEGATIVE (NEGATIVE); GLUCOSE NEGATIVE (NEGATIVE); KETONE NEGATIVE (NEGATIVE); PROTEIN TRACE mg/dL (NEGATIVE); UROBILINOGEN NORMAL (NORMAL)
[2018-08-05 06:30] LABS: BACTERIA FEW /hpf (NONE SEEN); EPITHELIAL CELLS RARE /hpf (0-5); GRANULAR CAST RARE /lpf (NONE SEEN); RED CELLS - URINE 0-5 /hpf (0-5); WHITE CELLS - URINE OCC /hpf (0-5)
[2018-08-05 08:17] VITALS: BP 145/60
[2018-08-05 11:05] VITALS: BP 160/59
[2018-08-05 11:10] LABS: HEMATOCRIT 26.4 % (42.0-54.0); HEMOGLOBIN 8.5 g/dL (13.5-17.5)
[2018-08-05 17:18] VITALS: BP 103/80
[2018-08-05 22:18] LABS: HEMATOCRIT 27.7 % (42.0-54.0)
[2018-08-05 23:52] VITALS: BP 149/50
[2018-08-06 04:00] VITALS: BP 122/55
[2018-08-06 04:04] LABS: HEMATOCRIT 27.1 % (42.0-54.0); HEMOGLOBIN 8.7 g/dL (13.5-17.5)
[2018-08-06 11:08] VITALS: BP 116/41
[2018-08-06 12:16] LABS: HEMATOCRIT 27.5 % (42.0-54.0); HEMOGLOBIN 8.8 g/dL (13.5-17.5)
[2018-08-06 15:05] VITALS: BP 118/62
[2018-08-06 18:29] VITALS: BP 130/86
[2018-08-06 19:59] VITALS: BP 83/41
[2018-08-06 20:04] LABS: HEMATOCRIT 26.6 % (42.0-54.0); HEMOGLOBIN 8.4 g/dL (13.5-17.5)
[2018-08-06 23:45] VITALS: BP 152/48
[2018-08-07 03:55] VITALS: BP 150/42
[2018-08-07 08:15] VITALS: BP 149/49
[2018-08-07 11:59] LABS: HEMATOCRIT 24.9 % (42.0-54.0); HEMOGLOBIN 7.9 g/dL (13.5-17.5)
== END 2018-08-07 16:30 | DRG 377 ==
LOC: D.M2 19:41
PROVIDERS: Internal Medicine Gastroenterology; Internal Medicine Nephrology
PROC: 0DJ08ZZ Inspection of Upper Intestinal Tract, Via Natural or Artificial Opening Endoscopic (ICD-10-PCS; principal; 2018-08-05 08:30)
PROC: 0DJD8ZZ Inspection of Lower Intestinal Tract, Via Natural or Artificial Opening Endoscopic (ICD-10-PCS; 2018-08-06)
DX: K92.2 Gastrointestinal hemorrhage, unspecified (principal); N18.6 End stage renal disease; D62 Acute posthemorrhagic anemia; T82.868A Thrombosis due to vascular prosthetic devices, implants and grafts, initial encounter; I12.0 Hypertensive chronic kidney disease with stage 5 chronic kidney disease or end stage renal disease; Y83.8 Other surgical procedures as the cause of abnormal reaction of the patient, or of later complication, without mention of misadventure at the time of the procedure; D63.1 Anemia in chronic kidney disease; I25.10 Atherosclerotic heart disease of native coronary artery without angina pectoris; F32.9 Major depressive disorder, single episode, unspecified; D72.829 Elevated white blood cell count, unspecified; K21.0 Gastro-esophageal reflux disease with esophagitis; K22.2 Esophageal obstruction; Z87.891 Personal history of nicotine dependence

== ENCOUNTER 2018-08-18 09:53 | Inpatient (IN) | payer MEDICARE ==
[~2018-08-18] VITALS: Ht 180.3 cm; Wt 100.7 kg
--- NOTE | ~2018-08-18 | OP ---
PATIENT NAME: JAVI MORELOS MEDICAL RECORD: [id number] :43 LOCATION:D. D.2138 ADMISSION DATE:08/18/18 SURGEON: ANTONIO KAPLAN MD DATE OF OPERATION: 08/19/2018 REFERRING PHYSICIAN: Criselda Marte MD PREOPERATIVE DIAGNOSIS: Nonfunctional left femoral HemoSplit dialysis catheter. ADDITIONAL DIAGNOSES: End-stage renal disease, dependence on hemodialysis; malfunctioning dialysis catheter; thrombophilia; and recent GI bleeding. OPERATION PERFORMED: Replacement of left femoral HemoSplit catheter under fluoroscopic control. SURGEON: Antonio Kaplan MD ANESTHESIA: TIVA per CHILD PSYCHOLOGIST and local 1% lidocaine. PREOPERATIVE NOTE: Mr. Morelos is a 72-year-old white male, retirement patient, with end-stage renal disease, who has been dialyzing for some time with a left arm brachial axillary AV graft. It has clotted several times and clotted almost immediately after the last declot procedure. At that time, which was about 3 weeks ago, I placed a left femoral HemoSplit dialysis catheter and indicated that I plan to bring him back for a left arm AV graft revision. That has not happened yet and I do not know if he has been scheduled for the additional procedure, but we will look into that now. At any rate, his catheter is not working and he is admitted to the hospital for that reason and he is brought to the operating room to replace it. DESCRIPTION OF PROCEDURE: Under TIVA, in supine position, the patient was prepped and draped in sterile manner and 1% lidocaine was infiltrated into the tissues around the subcutaneous tract of the catheter. The catheter was freed from the surrounding tissues and a guidewire then advanced through the arterial limb under fluoroscopy. The old catheter was removed. A new 35-cm, that is the same length, HemoSplit dialysis catheter was then inserted over guidewire under fluoroscopy and appeared to be in excellent position. Both lumens were accessed and aspirated. Free return of blood confirmed from each. They were flushed with saline, then heparin locked, clamped, and capped. The catheter was sutured to the skin near the exit site with 2-0 Prolene and sterile dressing was applied. The patient was awakened and taken to the recovery room. I will look into getting him scheduled for a left arm AV graft revision. Blood loss during the procedure was about 2 cc, none was replaced. All sponges, instruments, and needles were accounted for. No drain was used and no surgical specimen was submitted for histopathology. TRANSINT:[id number] Voice Confirmation ID: [id number] DOCUMENT ID: [id number] OPERATIVE REPORT [id number] JAVI MORELOS JAMES MD CC: CRISELDA MARTE MD [id number] DICTATION DATE: 08/19/18 1349 FINISHED CARPET INSPECTOR: 08/19/18 1751 ADM IN [place] [address] [place] [address]
[2018-08-18 10:42] LABS: BASOPHILS 0.4 % (0-2); EOSINOPHILS 4.1 % (0-7); HEMATOCRIT 29.1 % (42.0-54.0); HEMOGLOBIN 8.6 g/dL (13.5-17.5); IMMATURE GRANULOCYTES 0.2 % (0-5); LYMPHOCYTES 18.6 % (15-50); MCH 29.7 pg (26.0-34.0); MCHC 29.6 g/dL (31.0-37.0); MCV 100.3 fL (80.0-100.0); MEAN PLATELET VOLUME 9.5 fL (7.4-10.4); MONOCYTES 13.3 % (2-11); NEUTROPHILS 63.4 % (40-80); RDW 15.3 % (11.5-14.5)
[2018-08-18 10:55] LABS: ALBUMIN 2.6 g/dL (3.4-5.0); ANION GAP 14.4 mmol/L (8-16); BILIRUBIN - TOTAL 0.21 mg/dL (0.2-1.3); CALCIUM 9.1 mg/dL (8.5-10.1); CARBON DIOXIDE 26.4 mmol/L (21.0-32.0); CREATININE - SERUM 5.4 mg/dL (0.6-1.3); MAGNESIUM - SERUM 2.9 mg/dL (1.8-2.4); POTASSIUM - SERUM 4.8 mmol/L (3.5-5.1); PROTEIN - SERUM 6.7 g/dL (6.4-8.2)
[2018-08-18 10:58] LABS: PLATELET COUNT 426 10x3/uL (130-400)
--- NOTE | 2018-08-18 12:00 | NUR ---
IV START PER JELENA LOO RN
--- NOTE | 2018-08-18 12:30 | MORECARE ---
CASE MANAGEMENT DISCHARGE SUMMARY PATIENT: JAVI MORELOS UNIT: [id number] ADM DATE: 08/18/18 AGE: 72 : 44 SEX: M ROOM/BED: D.E10 AUTHOR: JORGE LUIS ACHARYA PHYSICIAN: REFERRING PHYSICIAN: CRISELDA MARTE MD DATE OF SERVICE: 08/18/18 Discharge Plan Patient Name: JAVI MORELOS [facility] [facility] 1945 Planned Disposition: Anticipated Discharge Date: Discharge Date: Expected LOS: Initial Reviewer: [email or web address] Initial Review Date: 08/18/2018 Generated: 08/18/18 1:29 pm Patient Name: JAVI MORELOS Page 17655 at 1230 All edits/amendments must be made on the electronic document DICTATION DATE: 08/18/181228 TICKET COUNTER: ZULMA 08/18/18 1229 RPT#: [id number] DC DATE: STATUS: ADM IN [facility] [address] [place] [address] END OF REPORT
--- NOTE | 2018-08-18 13:40 | NUR ---
RESTING WITH EYES CLOSED. NO ACUTE DISTRESS NOTED.
[2018-08-18 17:19] VITALS: BP 128/74; BMI 27.9
[2018-08-18 20:46] VITALS: BP 136/45
[2018-08-19 00:03] VITALS: BP 179/67
[2018-08-19 04:17] VITALS: BP 101/65
[2018-08-19 05:23] LABS: BASOPHILS 0.6 % (0-2); EOSINOPHILS 3.5 % (0-7); HEMATOCRIT 26.9 % (42.0-54.0); HEMOGLOBIN 8.1 g/dL (13.5-17.5); IMMATURE GRANULOCYTES 0.3 % (0-5); LYMPHOCYTES 21.1 % (15-50); MCH 29.6 pg (26.0-34.0); MCHC 30.1 g/dL (31.0-37.0); MONOCYTES 12.8 % (2-11); NEUTROPHILS 61.7 % (40-80); PLATELET COUNT 423 10x3/uL (130-400); RBC 2.74 10x6/uL (4.20-6.10); RDW 15.1 % (11.5-14.5); WBC 10.4 10x3/uL (4.8-10.8)
[2018-08-19 05:24] LABS: MCV 98.2 fL (80.0-100.0)
[2018-08-19 05:37] LABS: INR 0.99 (0.85-1.17); PROTIME 12.6 SECONDS (11.6-15.0)
[2018-08-19 05:47] LABS: ANION GAP 16.5 mmol/L (8-16); CALCIUM 8.9 mg/dL (8.5-10.1); CARBON DIOXIDE 25.1 mmol/L (21.0-32.0); CREATININE - SERUM 5.8 mg/dL (0.6-1.3); PHOSPHOROUS 4.5 mg/dL (2.5-4.9); POTASSIUM - SERUM 4.6 mmol/L (3.5-5.1)
--- NOTE | 2018-08-19 07:15 | NUR ---
ASSESSMENT DONE. DENIES NEEDS.
[2018-08-19 08:25] VITALS: BP 140/54
[2018-08-19 10:50] VITALS: Ht 180.3 cm; Wt 100.7 kg
--- NOTE | 2018-08-19 11:05 | NUR ---
RESTING QUIETLY NAD NOTED
--- NOTE | 2018-08-19 12:10 | NUR ---
TO OR PER BED
--- NOTE | 2018-08-19 13:53 | NUR ---
RETURN FROM OR PER BED
[2018-08-19 15:48] VITALS: BP 176/78
--- NOTE | 2018-08-19 18:06 | NUR ---
WITHOUT CHANGES OR DISTRESS NOTED AT THIS TIME.
[2018-08-19 21:41] VITALS: BP 130/58
[2018-08-20 05:44] VITALS: BP 115/50
--- NOTE | 2018-08-20 07:30 | NUR ---
RECEIVED A/A/OX4. UP IN W/C AND OUT IN HALLWAYS. STATES HE IS WANTING TO BE DISCHARGED TODAY AND WANTS ME TO CALL THE DR AND CHECK ON IT. INFORMED PT THAT WILL BE BY A LITTLE LATER AND HE CAN TALK TO HIM ABOUT IT THEN. NO OTHER REQUESTS. ASSESSMENT COMPLETED. BED IN LOW POSITION AND CALL LIGHT IN REACH.
[2018-08-20 08:37] VITALS: BP 134/44
--- NOTE | 2018-08-20 11:07 | MORECARE ---
CASE MANAGEMENT DISCHARGE SUMMARY PATIENT: JAVI MORELOS UNIT: [id number] ADM DATE: 08/18/18 AGE: 72 : 44 SEX: M ROOM/BED: D.2138 AUTHOR: JORGE LUIS ACHARYA PHYSICIAN: REFERRING PHYSICIAN: CRISELDA MARTE MD DATE OF SERVICE: 08/20/18 Discharge Plan Patient Name: JAVI MORELOS [facility] [facility] 1945 Planned Disposition: Nursing Facility CRUZ Cert Anticipated Discharge Date: 08/20/18 Discharge Date: Expected LOS: 2 Initial Reviewer: [email or web address] Initial Review Date: 08/18/2018 Generated: 08/20/18 12:07 pm External Providers External Provider: [facility] Next Contact Date: 08/20/2018 Service Request Date: Service Type: Resolution: Reviewer: Comments: Coverage Notice Reviewer: [email or web address] Nick Ying Notice Issued Date-Time: 08/20/2018 9:50 Notice Type: IM Discharge Notice Notice Delivered To: Patient Relationship to Patient: Sock Folder Name: Delivery Method: HAND - Hand Delivered Estefania Days: Prior Verbal Notification: Recipient Understood Notice: Yes Recipient Signature: Yes Med Rec Note Co-signed by Attending: Coverage Notice Comment: Last DP export: 08/18/18 11:29 am Patient Name: JAVI MORELOS Page 49551 at 1107 All edits/amendments must be made on the electronic document DICTATION DATE: 08/20/181106 SURFACE PLATE INSPECTOR: ZULMA 08/20/18 1107 RPT#: [id number] DC DATE: STATUS: ADM IN [facility] [address] [place] [address] END OF REPORT
--- NOTE | 2018-08-20 11:29 | MORECARE ---
CASE MANAGEMENT DISCHARGE SUMMARY PATIENT: JAVI MORELOS UNIT: [id number] ADM DATE: 08/18/18 AGE: 72 : 44 SEX: M ROOM/BED: D.2138 AUTHOR: JORGE LUIS ACHARYA PHYSICIAN: REFERRING PHYSICIAN: CRISELDA MARTE MD DATE OF SERVICE: 08/20/18 Discharge Plan Patient Name: JAVI MORELOS [facility] : 1945 Planned Disposition: Nursing Facility CRUZ Cert Anticipated Discharge Date: 08/20/18 Discharge Date: Expected LOS: 2 Initial Reviewer: [email or web address] Initial Review Date: 08/18/2018 Generated: 08/20/18 12:29 pm DCPIA - Discharge Planning Initial Assessment Updated by [email or web address]: Sacha Ying on 08/20/18 11:26 am * Is the patient Alert and Oriented? Yes * How many steps to enter\exit or inside your home? NONE * PCP DR. JENKINS * Pharmacy [facility] [place] * Preadmission Environment [facility] * Facility Name [facility] * ADLs Partial Dependent * Partial ADLs (Assistance needed) Bathing Dressing Medication Management * Equipment Walker Wheelchair * Other Equipment ALL MEDICAL EQUIPMENT PROVIDED BY FACILITY * List name and contact numbers for known caregivers / representatives who currently or will assist patient after discharge: [facility], * Verbal permission to speak to the caregivers and representatives has been obtained from the patient. Yes * Community resources currently utilized Other * Please name any agencies selected above. [facility] DIALYSIS, [facility], [facility], [facility], [facility] * Additional services required to return to the preadmission environment? No * Can the patient safely return to the preadmission environment? Yes * Has this patient been hospitalized within the prior 30 days at any hospital? Yes Coverage Notice Reviewer: [email or web address] Nick Ying Notice Issued Date-Time: 08/20/2018 9:50 Notice Type: IM Discharge Notice Notice Delivered To: Patient Relationship to Patient: Foreclosure Specialist Name: Delivery Method: HAND - Hand Delivered Estefania Days: Prior Verbal Notification: Recipient Understood Notice: Yes Recipient Signature: Yes Med Rec Note Co-signed by Attending: Coverage Notice Comment: Last DP export: 08/20/18 10:07 am Patient Name: JAVI MORELOS Page 62296 at 1129 All edits/amendments must be made on the electronic document DICTATION DATE: 08/20/181127 DECAL DECORATOR: ZULMA 08/20/181127 RPT#: [id number] DC DATE: STATUS: ADM IN [facility] [address] [place] [address] END OF REPORT
--- NOTE | 2018-08-20 11:36 | MORECARE ---
CASE MANAGEMENT DISCHARGE SUMMARY PATIENT: JAVI MORELOS UNIT: [id number] ADM DATE: 08/18/18 AGE: 72 : 44 SEX: M ROOM/BED: D.8548 AUTHOR: JORGE LUIS ACHARYA PHYSICIAN: REFERRING PHYSICIAN: CRISELDA VIEYRA MD DATE OF SERVICE: 08/20/18 Discharge Plan Patient Name: JAVI MORELOS [facility] [facility] 1945 Planned Disposition: Nursing Facility CRUZ Cert Anticipated Discharge Date: 08/20/18 Discharge Date: Expected LOS: 2 Initial Reviewer: [email or web address] Initial Review Date: 08/18/2018 Generated: 08/20/18 12:36 pm Comments DCP- Discharge Planning Updated by [email or web address]: Sacha Ying on 08/20/18 10:[address] Patient Name: JAVI MORELOS Admission Status: ER Accout number: [id number] Admission Date: 08-18-2018 : 1945 Admission Diagnosis:[facility] COMPL OF SURGICALLY CREATED ARTERIOVENOUS FISTULA, Attending: Criselda Vieyra Current LOS: 2 Anticipated DC Date: 08-20-2018 Planned Disposition: Nursing Facility CRUZ Cert Primary Insurance: MEDICARE A & B PLANNED EXTERNAL PROVIDER: [facility], LONG TERM CARE MEDICAID BED Discharge Planning Comments: CM MET WITH PT IN ROOM TO DISCUSS DISCHARGE PLANNING AND NEEDS. PT REPORTS LIVING AT [facility] IN DESIGN MANAGER CARE, DEPENDENT ON STAFF FOR ASSISTANCE WITH MEDICATIONS, BATHING AND DRESSING. PT USES A WALKER, WHEELCHAIR AND OXYGEN ALL THE TIME AT THE FACILITY. PT REPORTS LIVING AT [facility] AND WILL RETURN THERE TODAY IF THE DOCTOR WILL JUST LET HIM GO. PT REPORTS HE ALREADY CALLED THE NURSE AT [facility] AND THEY ARE EXPECTING HIM TODAY. PT REPORTS HE CAN RIDE IN THE VAN AND CALL THEM TO PICK HIM UP. IMPORTANT MESSAGE FROM MEDICARE PROVIDED AND EXPLAINED. CM RECEIVED DISCHARGE ORDER, FAXED DISCHARGE INFORMATION AND HOSPITAL STAY INFORMATION TO [facility] AT [phone]. CM CALLED AND SPOKE TO DANII RODRÍGUEZ, NURSE, WHO ARRANGED VAN [address] SUPERVISOR WITH PORTABLE OXYGEN FOR ABOUT 1240 HOURS TODAY. CM NOTIFIED PT AND ETHANOL QUALITY LEADER NURSE. NURSE REPORT TO BE CALLED TO DANII RODRÍGUEZ AT [facility], . [facility] VAN TO [address] SUPERVISOR PT TODAY AT APPROXIMATELY 1240 HOURS. Primary Products Inspectors: Sacha Ying DCPIA - Discharge Planning Initial Assessment Updated by [email or web address]: Sacha Ying on 08/20/18 11:26 am * Is the patient Alert and Oriented? Yes * How many steps to enter\exit or inside your home? NONE * PCP DR. JENKINS * Pharmacy [facility] [place] * Preadmission Environment [facility] * Facility Name [facility] * ADLs Partial Dependent * Partial ADLs (Assistance needed) Bathing Dressing Medication Management * Equipment Walker Wheelchair * Other Equipment ALL MEDICAL EQUIPMENT PROVIDED BY FACILITY * List name and contact numbers for known caregivers / representatives who currently or will assist patient after discharge: [facility], * Verbal permission to speak to the caregivers and representatives has been obtained from the patient. Yes * Community resources currently utilized Other * Please name any agencies selected above. OUTPATIENT DIALYSIS, [facility], [facility], [facility], [facility] * Additional services required to return to the preadmission environment? No * Can the patient safely return to the preadmission environment? Yes * Has this patient been hospitalized within the prior 30 days at any hospital? Yes Coverage Notice Reviewer: [email or web address] - Sacha Ying Notice Issued Date-Time: 08/20/2018 9:50 Notice Type: IM Discharge Notice Notice Delivered To: Patient Relationship to Patient: Enchilada Maker Name: Delivery Method: HAND - Hand Delivered Estefania Days: Prior Verbal Notification: Recipient Understood Notice: Yes Recipient Signature: Yes Med Rec Note Co-signed by Attending: Coverage Notice Comment: Last DP export: 08/20/18 10:29 am Patient Name: JAVI MORELOS Page 53100 at 1136 All edits/amendments must be made on the electronic document DICTATION DATE: 08/20/181135 LARGE SHEETFED PRESS OPERATOR: ZULMA 08/20/181135 RPT#: [id number] DC DATE: STATUS: ADM IN [facility] [address] [place] [address] END OF REPORT
[2018-08-20 11:54] VITALS: BP 122/65
--- NOTE | 2018-08-20 13:23 | NUR ---
TALKED WITH PT ABOUT HIS DISCHARGE AND INSTRUCTION REVIEWED WITH HIM. ALSO COPY TO BE SENT TO NH WITH HIM. CALLED REPORT TO DANII RODRÍGUEZ AT [facility]. PT SIGNED NECESSARY PAPERS AND IS READY FOR DISCHARGE. DANII STATED MAINT MECHANIC HAD ALREADY LEFT TO COME GET HIM.
--- NOTE | 2018-08-20 13:53 | NUR ---
LEFT FLOOR VIA W/C WITH ALL PERSONAL BELONGINGS AND LEFT FACILITY VIA VAN FROM [facility]. PAPERS TO BE GIVEN TO NURSE GIVEN TO EMPLOYEE ADVISER.
== END 2018-08-20 13:59 | DRG 314 ==
LOC: D.ER 09:53 → D.EDHOLD 11:41 → D.M2 11:41
PROVIDERS: Family Medicine; Surgery; ADMIT Internal Medicine Nephrology
PROC: 0JHM3XZ Insertion of Tunneled Vascular Access Device into Left Upper Leg Subcutaneous Tissue and Fascia, Percutaneous Approach (ICD-10-PCS; 2018-08-19)
PROC: 06PY33Z Removal of Infusion Device from Lower Vein, Percutaneous Approach (ICD-10-PCS; 2018-08-19)
PROC: 06HN33Z Insertion of Infusion Device into Left Femoral Vein, Percutaneous Approach (ICD-10-PCS; 2018-08-19)
PROC: B51C1ZA Fluoroscopy of Left Lower Extremity Veins using Low Osmolar Contrast, Guidance (ICD-10-PCS; 2018-08-19)
PROC: 5A1D70Z Performance of Urinary Filtration, Intermittent, Less than 6 Hours Per Day (ICD-10-PCS; 2018-08-19)
PROC: 0JPW3XZ Removal of Tunneled Vascular Access Device from Lower Extremity Subcutaneous Tissue and Fascia, Percutaneous Approach (ICD-10-PCS; principal; 2018-08-19 11:00)
DX: T82.590A Other mechanical complication of surgically created arteriovenous fistula, initial encounter (principal); N18.6 End stage renal disease; I12.0 Hypertensive chronic kidney disease with stage 5 chronic kidney disease or end stage renal disease; K92.2 Gastrointestinal hemorrhage, unspecified; Y83.8 Other surgical procedures as the cause of abnormal reaction of the patient, or of later complication, without mention of misadventure at the time of the procedure; Z99.2 Dependence on renal dialysis; E78.5 Hyperlipidemia, unspecified; D63.1 Anemia in chronic kidney disease; G47.00 Insomnia, unspecified; H40.9 Unspecified glaucoma

== ENCOUNTER 2018-09-17 08:12 | Day surgery (SDC) | payer MEDICARE ==
[~2018-09-17] VITALS: Ht 180.3 cm; Wt 98.2 kg
[2018-09-17 08:38] LABS: BASOPHILS 0.8 % (0-2); EOSINOPHILS 4.5 % (0-7); HEMATOCRIT 31.8 % (42.0-54.0); HEMOGLOBIN 9.2 g/dL (13.5-17.5); IMMATURE GRANULOCYTES 1.1 % (0-5); LYMPHOCYTES 20.5 % (15-50); MCH 30.2 pg (26.0-34.0); MCHC 28.9 g/dL (31.0-37.0); MCV 104.3 fL (80.0-100.0); MEAN PLATELET VOLUME 9.4 fL (7.4-10.4); MONOCYTES 11.9 % (2-11); NEUTROPHILS 61.2 % (40-80); RBC 3.05 10x6/uL (4.20-6.10); RDW 17.9 % (11.5-14.5); WBC 12.6 10x3/uL (4.8-10.8)
[2018-09-17 08:47] LABS: ANION GAP 14.6 mmol/L (8-16); CALCIUM 9.4 mg/dL (8.5-10.1); CARBON DIOXIDE 26.9 mmol/L (21.0-32.0); CREATININE - SERUM 4.9 mg/dL (0.6-1.3); POTASSIUM - SERUM 4.5 mmol/L (3.5-5.1)
[2018-09-17 08:51] LABS: APTT 30.1 SECONDS (22.8-39.4); INR 1.01 (0.85-1.17); PROTIME 12.8 SECONDS (11.6-15.0)
[2018-09-17 08:52] LABS: PLATELET COUNT 259 10x3/uL (130-400)
[2018-09-17 09:33] VITALS: BP 157/63; BMI 30.2
[2018-09-17 21:39] VITALS: BP 140/51
[2018-09-18 02:58] VITALS: BP 140/51; Ht 180.3 cm; Wt 98.2 kg
[2018-09-18 03:47] VITALS: BP 147/57
[2018-09-18 09:40] VITALS: BP 160/68
[2018-09-18 13:51] VITALS: BP 121/59
[2018-09-19 00:30] VITALS: BP 142/90
[2018-09-19 04:30] VITALS: BP 165/66
[2018-09-19] MEDS ORDERED: ELIQUIS5 MG PO (09:35)
--- NOTE | 2018-10-01 13:37 | OP ---
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 OPERATION PERFORMED: Tunneled dialysis catheter exchange in the left groin with fluoroscopic guidance and performance of an inferior vena cavogram. SURGEON: Antonio Kaplan MD ANESTHESIA: General with LMA per INSURANCE BILLER. PREOPERATIVE NOTE: Mr. Morelos is 72-year-old white male, patient of Dr. Ruby, has been dialyzing for sometime now with a left femoral tunneled catheter while we try to get him back to the operating room to declot and revise his left arm AV graft. He wished to have that done yesterday, but the schedule was overloaded and he was postponed, kept in the hospital overnight and scheduled to be brought back to the operating room today really only to change out his catheter with plans to bring him back again next week to try to work on his clotted graft. I was told at the last minute yesterday that his catheter was not working. He does have a history of thrombophilia and I suppose it is not surprising. 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 He is to have an IVC gram done at the same time today as the tunneled dialysis catheter exchange. I am going to place the present one with a new one in the same length 35 cm. He has a nonsplit-type catheter in place now, which I believe was inserted at [facility] He will have a split HemoSplit type TDC implanted now. DESCRIPTION OF PROCEDURE: Under anesthesia with an LMA per INSURANCE BILLER, the patient was prepped and draped in a sterile manner. The sutures holding the catheter to the skin near the entry site were removed and the catheter popped out of the tunnel with a bit of a sharp tug so that the Dacron felt cuff was out in the open. Contrast was injected then through the arterial limb and flow in the vena cava around that was adequate. I did not see any definite thrombus. I then removed the catheter over a 0.035 angled Roadrunner wire all under fluoroscopy and replaced it with a new 35-cm HemoSplit catheter advanced over the wire through the same subcutaneous tunnel and venous entry site in the femoral vein. The catheter was pushed up a little higher this time and contrast injection then demonstrated good filling of the upper portion of the inferior vena cava and flow on up into the heart. Both lumens of the catheter were accessed and aspirated. Good return was confirmed and both were flushed with heparin. The venous limb was heparin locked and the arterial limb was fitted with a PRN adapter and subsequently used for the patient's IV. A standard CVL dressing with chlorhexidine patch was applied, and the patient awakened and returned to the recovery room. There was no blood loss of consequence, probably 5 cc or less during the procedure. All sponges, instruments, and needles were accounted for. No drain was used and no surgical specimen submitted for histopathology, OPERATIVE REPORT [id number] JAVI MORELOS however, the tip of the original catheter was sent for culture. PLAN: The patient will hopefully have dialysis tonight and be able to be transferred back to his shelter tomorrow with arrangements made to bring him back yet again on Thursday of next week once again to try to declot and revise his AV graft. TRANSINT:[id number] Voice Confirmation ID: [id number] DOCUMENT ID: [id number] ANTONIO KAPLAN MD at 1337 CC: MARILUZ RUBY and RAMÓN YEAGER MD [id number] DICTATION DATE: 09/18/18 1747 INSPECTOR AND CLIPPER: 09/19/18 0114 [facility] 09/19/18 [id number] [place] [address]
== END 2018-09-19 12:35 | disposition other institution (70) ==
LOC: D.OPS 08:12 → D.M2 08:12 → D.OPS 09-19 12:35
PROVIDERS: Surgery
DX: T82.868A Thrombosis due to vascular prosthetic devices, implants and grafts, initial encounter (principal); Y83.9 Surgical procedure, unspecified as the cause of abnormal reaction of the patient, or of later complication, without mention of misadventure at the time of the procedure; I12.0 Hypertensive chronic kidney disease with stage 5 chronic kidney disease or end stage renal disease; N18.6 End stage renal disease; Z99.2 Dependence on renal dialysis; D64.9 Anemia, unspecified

== ENCOUNTER 2018-10-22 17:18 | Observation (INO) | payer MEDICARE ==
[~2018-10-22] VITALS: Ht 180.3 cm; Wt 102.5 kg
--- NOTE | 2018-10-22 19:00 | NUR ---
ATTEMPTED 3 DIFFERENT TIMES TO CALL [facility] FOR REPORT. HOWEVER, NO ONE WOULD ANSWER THE PHONE. NOTIFIED ER CHARGE WELL DELISA GARCIA.
--- NOTE | 2018-10-22 19:09 | NUR ---
ATTEMPTED TO CALL REPORT, NURSE UNAVAILABLE TO TAKE REPORT STATES SHE WILL RETURN MY CALL
--- NOTE | 2018-10-22 19:32 | MORECARE ---
CASE MANAGEMENT DISCHARGE SUMMARY PATIENT: JAVI MORELOS UNIT: [id number] ADM DATE: 10/22/18 AGE: 72 : 44 SEX: M ROOM/BED: D.2108 AUTHOR: JORGE LUIS ACHARYA PHYSICIAN: REFERRING PHYSICIAN: CRISELDA MARTE MD DATE OF SERVICE: 10/22/18 Discharge Plan Patient Name: JAVI MORELOS [facility] [facility] 1945 Planned Disposition: Anticipated Discharge Date: Discharge Date: Expected LOS: Initial Reviewer: [email or web address] Initial Review Date: 10/22/2018 Generated: 10/22/18 8:32 pm Patient Name: JAVI MORELOS Page 22888 at 1932 All edits/amendments must be made on the electronic document DICTATION DATE: 10/22/181930 APPLICATIONS DEVELOPER: ZULMA 10/22/181930 RPT#: [id number] DC DATE: STATUS: ADM IN [facility] [address] [place] [address] END OF REPORT
--- NOTE | 2018-10-22 20:23 | NUR ---
PT ARRIVED VIA WHEELCHAIR BY HOSPITAL STAFF. NO ACUTE S/S OF DISTRESS NOTED. RESPIRATIONS EVEN AND UNLABORED. BED IN LOW POSITION WITH CALL LIGHT IN REACH. WILL CONTINUE TO MONITOR PT AND FOLLOW PLAN OF CARE.
[2018-10-23 02:13] VITALS: BP 163/64; BMI 31.6
--- NOTE | 2018-10-23 02:30 | NUR ---
LAB CALLED AND STATED THAT THE WRONG PT STICKERS WAS PUT ON THE WRONG PT LAB WORK. LAB RESULTS WAS REPORTED TO NURSE PRACTIONER LORETTA DIAMOND. DUE TO THE MIXED UP WITH LAB. LAB HAS TO BE REDRAWN. WAITING ON LAB RESULTS TO REPORT BECAUSE THE WRONG RESULTS WERE GIVEN DUE TO LAB HAVING THE WRONG RESULTS ON THE WRONG PT.
[2018-10-23 02:35] LABS: BASOPHILS 0.5 % (0-2); EOSINOPHILS 5.1 % (0-7); HEMATOCRIT 32.9 % (42.0-54.0); HEMOGLOBIN 9.7 g/dL (13.5-17.5); IMMATURE GRANULOCYTES 0.3 % (0-5); LYMPHOCYTES 17.8 % (15-50); MCH 30.1 pg (26.0-34.0); MCHC 29.5 g/dL (31.0-37.0); MCV 102.2 fL (80.0-100.0); MEAN PLATELET VOLUME 10.2 fL (7.4-10.4); MONOCYTES 13.1 % (2-11); NEUTROPHILS 63.2 % (40-80); RBC 3.22 10x6/uL (4.20-6.10); WBC 9.8 10x3/uL (4.8-10.8)
--- NOTE | 2018-10-23 02:37 | NUR ---
ADMISSION ASSESSMENT COMPLETED. PT RESTING IN BED. WILL NOT ALLOW IV TO BE SITED UNTIL HE IS DUE FOR SURGERY.
[2018-10-23 02:38] LABS: PLATELET COUNT 346 10x3/uL (130-400)
[2018-10-23 02:48] LABS: ALBUMIN 2.8 g/dL (3.4-5.0); ANION GAP 15.9 mmol/L (8-16); BILIRUBIN - TOTAL 0.2 mg/dL (0.2-1.3); CARBON DIOXIDE 26.5 mmol/L (21.0-32.0); POTASSIUM - SERUM 4.4 mmol/L (3.5-5.1); PROTEIN - SERUM 6.8 g/dL (6.4-8.2)
--- NOTE | 2018-10-23 03:12 | NUR ---
ADMISSION STAFFING ACCOUNT MANAGER NOW COMPLETED.
--- NOTE | 2018-10-23 05:33 | NUR ---
PT REFUSES TO HAVE A IV STARTED. PT STATES HE WILL RECEIVE A IV WHEN HE GETS PREP FOR HIS ACCESS PLACEMENT FOR DIALYSIS.
[2018-10-23 08:00] VITALS: BP 128/74
[2018-10-23 09:02] VITALS: Ht 180.3 cm; Wt 102.5 kg
--- NOTE | 2018-10-23 09:49 | NUR ---
NOTIFIED PT THAT I SPOKE WITH DR. KAPLAN AND THAT HE WILL GET BACK WITH ME TO LET ME KNOW IF HE IS TAKING PT TO OR TODAY OR TOMORROW. PT UP TO SIDE OF BED, A/O X4, RESP EVEN AND NONLABORED ON RA. PT HAD NO IV ACCESS AND REFUSES TO HAVE ONE PLACE, HE STATED THAT HE WANTS TO WAIT UNTIL HE GOES TO SURGERY SO THEY CAN DO IT. PT DENIES ANY NEEDS AT THIS TIME. CALL LIGHT IN REACH, NAD NOTED,W ILL CONTINUE TO MONITOR.
--- NOTE | 2018-10-23 10:52 | NUR ---
INFORMED PT THAT DR. KAPLAN IS NOT GOING TO DO ANYTHING TODAY. PT VERY UPSET, PT STATED " EVERYTIME I COME HERE I GET DELAYED, I AM GOING TO STOP COMING TO THIS HOSPITAL."
[2018-10-23 11:30] VITALS: BP 180/70
--- NOTE | 2018-10-23 12:33 | NUR ---
CALLED [facility] AND SPOKE WITH KALEB, INFORMED HER THAT PT IS BEING D/C AND WE NEED [facility] TO PICK PT UP. KALEB STATED THAT SHE DID NOT NEED ANY PAPERWORK FAXED. WILL CALL ME BACK TO LET ME KNOW WHAT TIME [facility] WILL BE HERE TO PICK PT UP.
--- NOTE | 2018-10-23 12:36 | MORECARE ---
CASE MANAGEMENT DISCHARGE SUMMARY PATIENT: JAVI MORELOS UNIT: [id number] ADM DATE: 10/22/18 AGE: 72 : 44 SEX: M ROOM/BED: D.2107 AUTHOR: JORGE LUIS ACHARYA PHYSICIAN: REFERRING PHYSICIAN: CRISELDA MARTE MD DATE OF SERVICE: 10/23/18 Discharge Plan Patient Name: JAVI MORELOS [facility] [facility] 1945 Planned Disposition: Penitentiary Facility Anticipated Discharge Date: 10/23/18 Discharge Date: Expected LOS: 1 Initial Reviewer: [email or web address] Initial Review Date: 10/22/2018 Generated: 10/23/18 1:36 pm Last DP export: 10/22/18 6:32 pm Patient Name: JAVI MORELOS Page [id number] at 1236 All edits/amendments must be made on the electronic document DICTATION DATE: 10/23/18 1236 MACHINE FEEDER: DM 10/23/18 1236 RPT#: [id number] DC DATE: STATUS: ADM IN [facility] [address] [place] [address] END OF REPORT
--- NOTE | 2018-10-23 12:43 | MORECARE ---
CASE MANAGEMENT DISCHARGE SUMMARY PATIENT: JAVI MORELOS UNIT: [id number] ADM DATE: 10/22/18 AGE: 72 : 44 SEX: M ROOM/BED: D.2107 AUTHOR: JORGE LUIS ACHARYA PHYSICIAN: REFERRING PHYSICIAN: CRISELDA VIEYRA MD DATE OF SERVICE: 10/23/18 Discharge Plan Patient Name: JAVI MORELOS [facility] [facility] 1945 Planned Disposition: Nursing Home Facility Anticipated Discharge Date: 10/23/18 Discharge Date: Expected LOS: 1 Initial Reviewer: [email or web address] Initial Review Date: 10/22/2018 Generated: 10/23/18 1:43 pm Comments DCP- Discharge Planning Updated by [email or web address]: Shivani Francisco on 10/23/18 11:[address] Patient Name: JAVI MORELOS Admission Status: ER Accout number: [id number] Admission Date: 10-22-2018 : 1945 Admission Diagnosis: Attending: Criselda Vieyra Current LOS: 1 Anticipated DC Date: 10-23-2018 Planned Disposition: Nursing Home Facility Primary Insurance: MEDICARE A & B Discharge Planning Comments: Patient will be discharged back to [facility] in [place], [place]. TC to facility. Primary nurse, Vicki, spoke with Hillary. They will arrange transportation back and advise us of time of transport. They did not need discharge summary or med list faxed. Will be sent with the patient and his discharge paperwork. Patient is aware of above. [facility] phone number is [phone]. Medical Editor: Shivani Francisco Last DP export: 10/23/18 11:36 am Patient Name: JAVI MORELOS Page [phone] at 1243 All edits/amendments must be made on the electronic document DICTATION DATE: 10/23/18 1243 INDUSTRIAL TWISTING MACHINE OPERATOR: ZULMA 10/23/18 1243 RPT#: [id number] DC DATE: STATUS: ADM IN [facility] [address] [place] [address] END OF REPORT
--- NOTE | 2018-10-23 12:53 | HP ---
PATIENT: JAVI MORELOS MEDICAL RECORD: [id number] ACCOUNT: [id number] LOCATION:[facility] D.2107 : 43 ADMISSION DATE: 10/22/18 PCP: ANTONIO KAPLAN MD HISTORY AND PHYSICAL EXAMINATION HISTORY OF PRESENT ILLNESS: This is a nice gentleman with ESRD with multiple access complications. He somehow removed his right femoral HemoSplit catheter and has no dialysis access. REVIEW OF SYSTEMS: No current symptoms. No fever, chills, nausea, vomiting, diarrhea, just loss of dialysis access. No shortness of breath. PAST MEDICAL HISTORY: 1. ESRD. 2. Hypertension. 3. Gastrointestinal bleed. 4. Loss of multiple dialysis access with inability to take anticoagulation therapy due to gastrointestinal bleed. 5. Anemia of CKD. 6. Hyperphosphatemia. 7. Secondary hyperparathyroidism. PAST SURGICAL HISTORY: Dialysis grafts and fistulas in both arms, endoscopy during multiple admissions. ALLERGIES: None known. FAMILY HISTORY: Noncontributory. SOCIAL HISTORY: He is a [facility] resident. No current tobacco, alcohol, or illicit drugs: VITAL SIGNS: Stable, afebrile. GENERAL: He is alert and oriented times 3. HEENT: Normocephalic, atraumatic. Clear nares. Clear throat. Cranial nerves II through XII are intact. NECK: No JVD. CHEST: Regular rhythm. S1, S2. LUNGS: With decreased breath sounds at bases. ABDOMEN: Nontender bilaterally. No current bleeding from his right femoral area with loss of his dialysis access. EXTREMITIES: Trace lower extremity edema. LABORATORY DATA: Potassium is 4. ASSESSMENT AND PLAN: 1. End-stage renal disease with loss of dialysis access. 2. Access complication. Appreciate Dr. Cotton. 3. Anemia of chronic kidney disease. We will monitor his hematocrit during this admission. 4. Hyperphosphatemia. We will continue his phosphate binders. 5. Secondary hyperparathyroidism. If remains admitted, we will continue his vitamin D therapy. 6. Decondition, he is a [facility] resident with a femoral dialysis catheter. 7. Chronic obstructive pulmonary disease with pulmonary edema and difficulty with fluid restriction. HISTORY AND PHYSICAL [id number] JAVI MORELOS PLAN: 1. Appreciate Dr. Cotton. 2. Morning labs. 3. N.p.o. in the morning. TRANSINT:[id number] Voice Confirmation ID: [id number] DOCUMENT ID: [id number] CRISELDA MARTE MD at 1253 CC: [id number] DICTATION DATE: 10/22/182043 PEBBLE MILL OPERATOR: 10/22/182123 ADM IN [place] [id number] [place] [id number]
--- NOTE | 2018-10-23 13:33 | NUR ---
PROVIDED VERBAL AND WRITTEN DISCHARGE TEACHING TO PT. WHO VERBALIZED UNDERSTANDING REGARDING TEACHING. PT WAITING ON RIDE
--- NOTE | 2018-10-23 15:34 | NUR ---
PT LEFT UNIT VIA WHEELCHAIR, WITH ALL BELONGINGS, ACCOMPANIED BY SENIOR LIVING SLIP COVER MAKER, NAD NOTED.
--- NOTE | 2018-10-25 09:41 | MORECARE ---
CASE MANAGEMENT DISCHARGE SUMMARY PATIENT: JAVI MORELOS UNIT: [id number] ADM DATE: 10/22/18 AGE: 72 : 44 SEX: M ROOM/BED: D.2107 AUTHOR: JORGE LUIS ACHARYA PHYSICIAN: REFERRING PHYSICIAN: CRISELDA VIEYRA MD DATE OF SERVICE: 10/25/18 Discharge Plan Patient Name: JAVI MORELOS Facility: [facility]:[place] : 1945 Planned Disposition: [facility] Facility Anticipated Discharge Date: 10/23/18 Discharge Date: 10/23/2018 Expected LOS: 1 Initial Reviewer: [email or web address] Initial Review Date: 10/22/2018 Generated: 10/25/18 10:41 am Comments DCP- Discharge Planning Updated by [email or web address]: Shivani Francisco on 10/23/18 10:[address] Patient Name: JAVI MORELOS Admission Status: ER Accout number: [id number] Admission Date: 10-22-2018 : 1945 Admission Diagnosis: Attending: Crisedla Vieyra Current LOS: 1 Anticipated DC Date: 10-23-2018 Planned Disposition: [facility] Facility Primary Insurance: MEDICARE A & B Discharge Planning Comments: Patient will be discharged back to [facility] in [place], [place]. TC to facility. Primary nurse, Vicki, spoke with Hillary. They will arrange transportation back and advise us of time of transport. They did not need discharge summary or med list faxed. Will be sent with the patient and his discharge paperwork. Patient is aware of above. [facility] phone number is [phone]. Director Video: Shivani Francisco Last DP export: 10/23/18 10:43 am Patient Name: JAVI MORELOS Page [id number] at 0941 All edits/amendments must be made on the electronic document DICTATION DATE: 10/25/18940 CUSTOMER RELATIONSHIP SPECIALIST: ZULMA 10/25/18940 RPT#: [id number] DC DATE:10/23/18 STATUS: DIS IN [place] [id number] [place] [address] END OF REPORT
--- NOTE | 2018-10-25 09:48 | MORECARE ---
CASE MANAGEMENT DISCHARGE SUMMARY PATIENT: JAVI MORELOS UNIT: [id number] ADM DATE: 10/22/18 AGE: 72 : 44 SEX: M ROOM/BED: D.2107 AUTHOR: JORGE LUIS ACHARYA PHYSICIAN: REFERRING PHYSICIAN: CRISELDA VIEYRA MD DATE OF SERVICE: 10/25/18 Discharge Plan Patient Name: JAVI MORELOS [facility]:[place] : 1945 Planned Disposition: Prison Facility Anticipated Discharge Date: 10/23/18 Discharge Date: 10/23/2018 Expected LOS: 1 Initial Reviewer: [email or web address] Initial Review Date: 10/22/2018 Generated: 10/25/18 10:48 am Comments DCP- Discharge Planning Updated by [email or web address]: Shivani Francisco on 10/23/18 10:[address] Patient Name: JAVI MORELOS Admission Status: ER Accout number: [id number] Admission Date: 10-22-2018 : 1945 Admission Diagnosis: Attending: Criselda Vieyra Current LOS: 1 Anticipated DC Date: 10-23-2018 Planned Disposition: Prison Facility Primary Insurance: MEDICARE A & B Discharge Planning Comments: Patient will be discharged back to [facility] in [place], [place]. TC to facility. Primary nurse, Vicki, spoke with Hillary. They will arrange transportation back and advise us of time of transport. They did not need discharge summary or med list faxed. Will be sent with the patient and his discharge paperwork. Patient is aware of above. [facility] phone number is [phone]. Chief Of Vital Statistics: Shivani Francisco Last DP export: 10/23/18 10:43 am Patient Name: JAVI MORELOS Page [phone] at 0948 All edits/amendments must be made on the electronic document DICTATION DATE: 10/25/18947 VICE PRESIDENT SUPPLY CHAIN: ZULMA 10/25/18947 RPT#: [id number] DC DATE:10/23/18 STATUS: DIS IN [id number] [place] [address] END OF REPORT
== END 2018-10-23 15:37 ==
LOC: D.ER 17:18 → OBSVTIME 18:08 → D.M2 18:08
PROVIDERS: Family Medicine; ADMIT Internal Medicine Nephrology; ATTEND Internal Medicine Nephrology
DX: T82.520A Displacement of surgically created arteriovenous fistula, initial encounter (principal); Y83.8 Other surgical procedures as the cause of abnormal reaction of the patient, or of later complication, without mention of misadventure at the time of the procedure; I12.0 Hypertensive chronic kidney disease with stage 5 chronic kidney disease or end stage renal disease; N18.6 End stage renal disease; Z99.2 Dependence on renal dialysis; N25.81 Secondary hyperparathyroidism of renal origin; D63.1 Anemia in chronic kidney disease; J44.9 Chronic obstructive pulmonary disease, unspecified

== ENCOUNTER 2018-10-29 08:04 | Day surgery (SDC) | payer MEDICARE ==
[~2018-10-29] VITALS: Ht 180.3 cm; Wt 91.2 kg
--- NOTE | ~2018-10-29 | OP ---
PATIENT NAME: JAVI MORELOS MEDICAL RECORD: [id number] :43 LOCATION:[facility] ADMISSION DATE: SURGEON: ANTONIO KAPLAN MD DATE OF OPERATION: 10/29/2018 PREOPERATIVE DIAGNOSES: End-stage renal disease, dependence on hemodialysis, thrombosed left upper extremity AV graft, axillary vein stenosis, thrombophilia, and dementia. POSTOPERATIVE DIAGNOSES: End-stage renal disease, dependence on hemodialysis, thrombosed left upper extremity AV graft, axillary vein stenosis, thrombophilia, and dementia. OPERATION PERFORMED: Left arm AV graft revision with thrombectomy. SURGEON: Antonio Kaplan MD ANESTHESIA: General with LMA per WEIGHT TRAINER. REFERRING PHYSICIAN: Michael Ruby MD PREOPERATIVE NOTE: Mr. Morelos has a left arm AV graft, which is thrombosed several times. He is now dependent on a femoral vein catheter and has had problems with inferior vena cava stenosis and the thrombosis. He really is running out of access sites. He is returned to the operating room today to try to salvage the left upper extremity with a revision of his existing graft with thrombectomy, etc. DESCRIPTION OF PROCEDURE: Under anesthesia in supine position, the patient was prepped and draped in sterile manner. I made a transverse axillary incision and exposed the graft axillary vein anastomosis and noted that it was filled with stents. I was able to dissect proximally up to axillary vein, which was not stented. The area was rather hostile and the procedure tedious in this area. The vessels were controlled with Silastic loops and vascular clamps as needed. I then made an incision just above the antecubital space on the medial side and exposed the brachial artery and controlled it with Silastic loops. I chose an Artegraft and it was flushed and rinsed as per instructions. The patient was systemically heparinized with 5000 units of heparin and an arteriotomy made on the anterior surface of the axillary vein immediately proximal to the stented segment. The artery graft was anastomosed to the vein with running 6-0 Prolene in an vsl-am-hzghw to faqz-ir-vnpp manner. The graft was flushed with heparinized saline and then placed in a very superficial rainbow configured subcutaneous tunnel bringing it down to the brachial artery just above the antecubital space. There, it was shortened and beveled. The brachial artery was occluded. The artery was opened for a distance of about 6 mm. It was flushed proximally and distally with heparinized saline and an end-to-side hrn-ux-akwcq to epwq-va-pqajiuxu artery anastomosis performed with running 6-0 Prolene and when completed, flow in the new graft was not satisfactory. I inserted a micropuncture needle and catheter and performed an intraoperative angiogram, which demonstrated poor flow through the ubiyl-rl-iapi anastomosis and clot remaining in the axillary vein. This was subsequently treated with an 8-mmx 5-cm Viabahn stent, which was fully opened with an 8-mm diameter angioplasty balloon, which was also then used to macerate any remaining clot in the venous outflow and in the graft itself with serial overlapping inflations. After that, repeated angiogram revealed a much improved situation with flow OPERATIVE REPORT [id number] JAVI MORELOS without observable thrombus in the venous outflow. The 8-Frisian introducer, 8-Frisian was required to insert the Viabahn stent, was removed and that puncture site closed with a running 6-0 Prolene and that was treated also with BioGlue. The fistula was functioning well and was good Doppler flow in the brachial artery above and below the arterial anastomosis. The wounds were irrigated with Ancef and gentamicin solution, infiltrated with 0.25% Marcaine without epinephrine and closed with interrupted inverted 3-0 Vicryls and running intracuticular 4-0 Monocryl. No drain was used. The incisions were sealed with glue and dressed with Maxorb Ag, Tegaderm, and Cavilon skin prep. The patient was then awakened and taken to the recovery room. Blood loss during the operation about maybe 200 cc, none was replaced. Sponges, instruments, and needles were accounted for. No drain was used. No surgical specimen submitted for histopathology. Plan for Mr. Morelos to be discharged to [facility] [place] today. We will make an appointment for him to return to see me in my office 1 week from this coming Thursday. He will for now continue all of his same preoperative medications and his usual renal diet and dialysis schedule. I plan to wait 2 weeks before we access his fistula and if it functions, then shortly after that have him back to [facility] for a followup angiogram and hopefully removal of the tunneled dialysis catheter at that time. TRANSINT:[id number] Voice Confirmation ID: [id number] DOCUMENT ID: [id number] cc: [facility] [phone] fax [facility] [phone] ANTONIO KAPLAN MD CC: [facility], MICHAEL RUBY and NAWAF PROCEDURE [id number] DICTATION DATE: 10/29/181813 MUTUAL FUND SALES AGENT: 10/30/18 0142 [facility] 10/29/18 [place] [id number] [place] [id number]
[2018-10-29 08:33] LABS: BASOPHILS 0.5 % (0-2); EOSINOPHILS 4.5 % (0-7); HEMATOCRIT 36.9 % (42.0-54.0); HEMOGLOBIN 10.6 g/dL (13.5-17.5); IMMATURE GRANULOCYTES 0.5 % (0-5); LYMPHOCYTES 15.9 % (15-50); MCH 30.2 pg (26.0-34.0); MCHC 28.7 g/dL (31.0-37.0); MCV 105.1 fL (80.0-100.0); MEAN PLATELET VOLUME 9.7 fL (7.4-10.4); NEUTROPHILS 67.6 % (40-80); PLATELET COUNT 357 10x3/uL (130-400); RBC 3.51 10x6/uL (4.20-6.10); RDW 16.1 % (11.5-14.5); WBC 11.2 10x3/uL (4.8-10.8)
[2018-10-29 08:43] LABS: INR 1.06 (0.85-1.17); PROTIME 13.3 SECONDS (11.6-15.0)
[2018-10-29 08:50] LABS: ANION GAP 11.1 mmol/L (8-16); CALCIUM 8.8 mg/dL (8.5-10.1); CARBON DIOXIDE 29.9 mmol/L (21.0-32.0); CREATININE - SERUM 3.7 mg/dL (0.6-1.3)
[2018-10-29 09:47] VITALS: Ht 180.3 cm; Wt 91.2 kg
[2018-10-29] MEDS ORDERED: CHRONULAC30 ML PO (10:04)
[2018-10-29] MEDS ORDERED: HYDROCODON-ACE1 EA10 PO (10:05)
[2018-10-29] MEDS ORDERED: CROMOLYN (10:07)
[2018-10-29] MEDS ORDERED: MELATONIN 3 MG1 TAB PO (10:09)
[2018-10-29] MEDS ORDERED: SENSIPAR30 MG PO (10:09)
--- NOTE | 2018-10-29 18:55 | NUR ---
PATIENT SITTING ON SIDE OF BED, [facility] STAFF MEMBER IN ROOM, HAS HELPED PATIENT GET DRESSED IN PERSONAL CLOTHING. RIGHT HAND PIV DC'D WITH TIP INTACT. DISCHARGE INSTRUCTIONS REVIEWED WITH PATIENT AND [facility] STAFF MEMBER
== END 2018-10-29 19:04 | disposition home or self-care (01) ==
LOC: D.OPS 08:04
PROVIDERS: Surgery; ATTEND Internal Medicine Nephrology
DX: T82.868A Thrombosis due to vascular prosthetic devices, implants and grafts, initial encounter (principal); I87.1 Compression of vein; D68.59 Other primary thrombophilia; F03.90 Unspecified dementia, unspecified severity, without behavioral disturbance, psychotic disturbance, mood disturbance, and anxiety; I12.0 Hypertensive chronic kidney disease with stage 5 chronic kidney disease or end stage renal disease; N18.6 End stage renal disease; Z99.2 Dependence on renal dialysis; Z01.812 Encounter for preprocedural laboratory examination

== ENCOUNTER 2020-02-06 10:26 | Inpatient (IN) | payer MEDICARE ==
[2020-02-06] VITALS (11 sets, daily range): BP systolic 105–154; BP diastolic 52–87; BMI 32.8
[~2020-02-06] VITALS: Ht 180.3 cm; Wt 88.7 kg
--- NOTE | ~2020-02-06 | HEMODYNAMI ---
PATIENT:JAVI MORELOS MEDICAL RECORD: [id number] : 43 LOCATION:[facility] D.2304 ADMISSION DATE: 02/06/20 Generatedon:02/09/202015:37 Patient name: JAVI MORELOS Patient #: [id number] SSN: : Date of study: 02/09/2020 Page: Of Hemodynamic Procedure Report Patient Data Patient Demographics Procedure consent was obtained First Name: JAVI Gender: Male Last Name: TAMY : 1945 Middle Initial: W Age: 74 year(s) Patient #: [id number] Race: Unknown Additional ID: [id number] Contact details [address]: [address] [place] [address] State: [place] City: [place] Zip code: [address] Past Medical History Allergies: No known allergies Admission Admission Data Admission Date: 02/06/2020 Admission Time: 14:00 Room #: [facility] Procedure Procedure Types Cath Procedure Peripheral Cath Diagnostic Procedure Abd/Extremity Extremities AFRO Lower Ext Arterio Procedure Description Procedure Date Procedure Date: 02/09/2020 Procedure Start Time: 14:30 Procedure Staff Name Function Leslie Zepeda MD Performing Physician Cecilia Chu SCOUT SNIPER Additional personnel Bibiana Hutchins RT Monitor Kong Jeronimo RT Scrub Alexus Meier RN Nurse Procedure Data Cath Procedure Fluoroscopy Diagnostic fluoroscopy Total fluoroscopy Time: time: 14.4 min 14.4 min Diagnostic fluoroscopy Total fluoroscopy dose: 596 dose: 596 mGy mGy Contrast Material Contrast Material Type Amount (ml) Isovue 300 135 Entry Location Entry Primary Successful Side Size Upsize Upsize Entry Closure Succes sful Closure Location (Fr) 1 (Fr) 2 (Fr) Remarks Device Remarks Femoral Exoseal artery Procedure Medications Medication Administration Route Dosage Heparin Flush Bag added to field 2 bags (1000units/500ml NS) Lidocaine 1% added to field 20 Refer to Anesthesia Notes for Sedation Medications Heparin Bolus I.V. 6000 units Hemodynamics Rest Pre Cath Intra NCS Post Cath Medications Time Medication Route Dose Verified Delivered Reason Notes Effe ctiveness by by 14:22:55 Heparin Flush added 2 M Luann Duane Zepeda used for Bag to bags MD SPIVEY procedure (1000units/500ml field NS) 14:23:14 Lidocaine 1% added 20ml Leslie Zepeda for local to vial MD SPIVEY anesthetic field 14:28:41 Refer to Leslie Zepeda Anesthesia Notes MD SPIVEY for Sedation Medications 14:54:23 Heparin Bolus I.V. 6000 Leslie Vaughan Per units MD Hardeep HERCULES physician Procedure Log Time Note 14:05:07 Time tracking: Regular hours (M-F 7:00 - 5:00) 14:06:21 Plan of Care:Hemodynamics will remain stable., Cardiac rhythm will remain stable., Comfort level will be maintained., Respiratory function will remain adequate., Patient/ family verbilizes understanding of procedure., Procedure tolerated without complication., Recovers from procedure without complications.. 14:06:37 Patient received from ICU to IR Alert and oriented. Tansferred to table in Supine position. 14:06:40 Signed procedure consent form obtained from patient. 14:06:55 H&P Date Dictated: 02/09/2020 Within 30 days and on chart.. 14:07:01 Pre-procedure instructions explained to patient. 14:07:02 Pre-op teaching completed and patient verbalized understanding. 14:07:04 Family unavailable. 14:07:07 Patient NPO since Midnight. 14:07:20 Patient allergic to No known allergies 14:07:34 - 14:07:39 Use device set IR Diagnostic 14:07:40 Tegaderm 4 x 4 (1626W) opened to sterile field. 14:07:41 Sterile Angiographic Pack opened to sterile field. 14:07:42 Bag Decanter () opened to sterile field. 14:07:43 ACIST Manifold (17160) opened to sterile field. 14:07:44 ACIST Hand Control (31480) opened to sterile field. 14:07:45 ACIST Syringe (52012) opened to sterile field. 14:08:00 Angiodynamics Omniflush 5Fr 65cm ([id number]) opened to sterile field. 14:08:35 QUINN 260 wire (A24562) opened to sterile field. 14:08:36 SHEATH 5FR Fowler (VEV209) opened to sterile field. 14:08:37 TUBING Contrast Injection High Pressure (SDZ485A) opened to sterile field. 14:08:48 Micropuncture VSI 4FR kit opened to sterile field. 14:10:15 - 14:10:29 Pre procedure: right dorsailis pedis pulse Doppler 14:10:40 Pre procedure: left dorsailis pedis pulse 0-Absent 14:10:45 Pre procedure: right posterior tibial pulse Doppler 14:10:50 Pre procedure: left posterior tibial pulse Doppler 14:10:52 - 14:11:02 Is the patient allergic to Iodine/contrast media? No. 14:11:05 Is patient on blood thinner?Yes 14:11:09 Patient diabetic? Yes. 14:11:11 If diabetic: On Metformin? No 14:11:13 - 14:22:55 Heparin Flush Bag (1000units/500ml NS) 2 bags added to field was administered by Leslie Zepeda MD; used for procedure; Verbal order read back and verified. 14:23:14 Lidocaine 1% 20ml vial added to field was administered by Leslie Zepeda MD; for local anesthetic; Verbal order read back and verified. 14:28:21 ----Pre-sedation anethsthesia assessment.----see anesthesia notes for monitoring of patient during procedure 14:28:41 Refer to Anesthesia Notes for Sedation Medications was administered by Leslie Zepeda MD; ; Verbal order read back and verified. 14:28:50 - 14:29:03 Right groin area was prepped with chlora-prep and draped in sterile fashion 14:29:05 - 14:29:08 Physician arrived 14::09 --------ALL STOP TIME OUT------ 14:29:09 Final Timeout: patient, procedure, and site verified with staff and physician. All members of the team are in agreement. 14:30:02 Fire Safety Assessment: A--An alcohol-based skin anteseptic being used preoperatively., C--Open oxygen or nitrous oxide is being used. 14:30:12 5) <15 or on dialysis Very severe, or end stage kidney failure. 14:30:34 Procedure started. 14:30:34 Full Disclosure recording started 14:30:39 Local anesthetic to right femoral artery with Lidocaine 1% by Leslie Zepeda MD.INITIAL ACCESS ONLY 14:34:45 Arterial access obtained using ultrasound guidance. 14:35:35 GLIDE WIRE ANGLE 260cm (RM8933) opened to sterile field. 14:42:58 SHEATH 6FR Destination (RSR01) opened to sterile field. 14:46:51 TORQUE DEVICE PLASTIC .038 ( TD01) opened to sterile field. 14:47:09 CHOICE PT Extra Support J 300cm guide wire ([id number]) opened to steril e field. 14:48:43 CXI SUPPORT .035 135 CM STR catheter (A86369) opened to sterile field. 14:49:19 Hawkone Medium Atherectomy System (H1-M) opened to sterile field. 14:54:23 Heparin Bolus 6000 units I.V. was administered by Alexus Meier RN; Per physician; Verbal order read back and verified. 15:00:39 INFLATOR BasixTOUCH (OQ0150) opened to sterile field. 15:26:09 SHEATH 6FR Fowler (OAW939) opened to sterile field. 15:31:52 A sheath was inserted into the Femoral artery 15:31:52 Sheath removed intact; hemostasis achieved with Exoseal to the Femoral artery. 15:32:00 Procedure ended.(Physican Out) 15:33:30 Fluoroscopy time 14.40 minutes. 15:33:43 Fluoroscopy dose: 596 mGy 15:33:43 Flurop Dose total: 596 15:33:49 Contrast amount:Isovue 300 135ml. 15:33:51 Procedure and supply charges have been captured, reviewed, submitted an d are correct. 15:35:31 Report given to ICU. Device Usage Item Name Manufacture Quantity Catalog Number Hospital Part Current M inimal Lot# / Charge Number Stock Stock Serial# Code Tegaderm 4 x 3M 1 1626W [id number] [id number] [id number] 5 4 (1626W) Sterile Cardinal 1 [id number] 547389 233933 5 Angiographic Health Pack Bag Decanter Microtek 1 558966 54408 192537 5 () Medical Inc. ACIST Acist Medical 1 87979 933205 520520 285615 5 Manifold Systems Inc (03251) ACIST Hand Acist Medical 1 87523 351237 913696 122218 5 Control Systems Inc (44854) ACIST Syringe Acist Medical 1 05426 882927 255521 218512 2 0 (08363) Systems Inc Angiodynamics Angiodynamics 1 51522131 677786 266886 047542 5 Omniflush 5Fr 65cm ([id number]) QUINN 260 Cook Medical 1 D34816 484687 67340 257390 5 [id number] wire (N26801) SHEATH 5FR Terumo 1 YQM361 846812 820078 807572 5 Fowler (LQI103) TUBING [facility] Medical 1 [id number] 221361 448761 996907 5 Contrast Injection High Pressure (LLK583G) Micropuncture VSI VASCULAR 1 7266V 084341 412029 5 VSI 4FR kit SOLUTIONS GLIDE WIRE Terumo 1 CX6872 353573 818218 540336 5 ANGLE 260cm (RC2874) SHEATH 6FR Terumo 1 RSR01 396363 31554 241600 5 Destination (RSR01) TORQUE DEVICE Shields 1 TD01 142198 631786 826938 5 PLASTIC .038 Scientific ( TD01) CHOICE PT Shields 1 [id number] 984481 944282 806073 5 Extra Support Scientific J 300cm guide wire ([id number]) CXI SUPPORT Cook i.Sec 1 F37090 841279 050910 339649 5 [id number] .035 135 CM STR catheter (P51604) Hawkone Medtronic 1 H1-M 250915 90688200 5 Medium Atherectomy System (H1-M) INFLATOR [facility] Medical 1 OP0049 476676 948777 560268 5 BasixTOUCH (ZJ9639) SHEATH 6FR Terumo 1 CUC240 094508 539743 943159 4 0 Fowler (HUR852) Signature Audit [place] Stage Time Signature Unsigned Intra-Procedure 02/09/2020 Bibiana Hutchins 3:37:20 PM RT(R) [facility] [address] [place] [address]
[~2020-02-06 10:26] MED LIST changes: +CHRONULAC30 ML PO; +CROMOLYN; +HYDROCODON-ACE1 EA10 PO; +SENSIPAR30 MG PO
[2020-02-06 11:38] LABS: APTT 29.8 SECONDS (22.8-39.4); INR 1.28 (0.85-1.17); PROTIME 15.9 SECONDS (11.6-15.0)
[2020-02-06 11:47] LABS: D-DIMER-QUANTITATIVE 3.71 ug/mLFEU (0.20-0.54)
[2020-02-06 11:59] LABS: CKMB 3.1 U/L (0.0-3.6); CREATINE KINASE 85 UL (21-232)
[2020-02-06 12:07] LABS: TROPONIN-I 0.215 ng/mL (0.000-0.060)
--- NOTE | 2020-02-06 12:08 | NUR ---
CRITICAL LAB: RCVD TC FROM LAB TROPONIN 0.215 DR FERNANDEZ AND HAYDEE RN NOTIFIED
--- NOTE | 2020-02-06 15:15 | NUR ---
ROCEPHIN COMPLETE AT THIS TIME.
--- NOTE | 2020-02-06 16:40 | NUR ---
DR KIRK JOYA GIVEN UPDATE REGAURDING CONSULT, KANDY MEJIA AT BEDSIDE GIVNE UPDATE NEW ORDERS RECIEVED
--- NOTE | 2020-02-06 20:38 | NUR ---
B/P 111/90 MAP 101 Dialysis here.
--- NOTE | 2020-02-06 21:00 | NUR ---
Dialysis continued without difficulty. Voices no concerns at this time. Bed in low position. Call light in reach.
--- NOTE | 2020-02-06 23:00 | NUR ---
Dialysis completed. Tolerates procedure without difficulty. Bed in low position. Call light in reach. Voices no needs at this time.
[2020-02-07] VITALS (23 sets, daily range): BP systolic 62–249; BP diastolic 33–114; BMI 32.7
--- NOTE | 2020-02-07 03:00 | NUR ---
Patients says feels sore all over and asking for Nurse to take out the catheter. Patient instructed to use call light and still yells out repeatedly "Nurse". Patient remains on 2LNC. SR up x 2. Bed in low position.
[2020-02-07 04:48] LABS: BASOPHILS 0.1 % (0-2); EOSINOPHILS 0.6 % (0-7); HEMOGLOBIN 13.5 g/dL (13.5-17.5); IMMATURE GRANULOCYTES 0.4 % (0-5); LYMPHOCYTES 5.9 % (15-50); MCH 32.4 pg (26.0-34.0); MCV 107.9 fL (80.0-100.0); MEAN PLATELET VOLUME 10.6 fL (7.4-10.4); MONOCYTES 6.8 % (2-11); NEUTROPHILS 86.2 % (40-80); PLATELET COUNT 96 10x3/uL (130-400); RBC 4.17 10x6/uL (4.20-6.10); RDW 19.1 % (11.5-14.5); WBC 7.1 10x3/uL (4.8-10.8)
[2020-02-07 04:49] LABS: PLATELET ESTIMATE DECREASED
[2020-02-07 06:37] LABS: ALBUMIN 3.4 g/dL (3.4-5.0); ANION GAP 17.3 mmol/L (8-16); BILIRUBIN - TOTAL 1.05 mg/dL (0.2-1.3); CALCIUM 8.7 mg/dL (8.5-10.1); CARBON DIOXIDE 25.7 mmol/L (21.0-32.0); CREATININE - SERUM 4.8 mg/dL (0.6-1.3); MAGNESIUM - SERUM 2.7 mg/dL (1.8-2.4); PHOSPHOROUS 6.6 mg/dL (2.5-4.9); PROTEIN - SERUM 7.8 g/dL (6.4-8.2)
[2020-02-07 06:41] LABS: TROPONIN-I 0.158 ng/mL (0.000-0.060)
--- NOTE | 2020-02-07 07:00 | NUR ---
REPORT RECEIVED. ASSESSMENT COMPLETE PER FLOW SHEET. VSS. PT RESTING COMFORTABLY WILL CONTINUE TO MONTIOR
[2020-02-07 08:23] LABS: INR 1.14 (0.85-1.17); PROTIME 14.5 SECONDS (11.6-15.0)
[2020-02-07 10:04] LABS: BASOPHILS 0.1 % (0-2); EOSINOPHILS 0.1 % (0-7); HEMATOCRIT 46.2 % (42.0-54.0); HEMOGLOBIN 14.4 g/dL (13.5-17.5); IMMATURE GRANULOCYTES 0.4 % (0-5); LYMPHOCYTES 7.8 % (15-50); MCH 32.5 pg (26.0-34.0); MCHC 31.2 g/dL (31.0-37.0); MEAN PLATELET VOLUME 10.8 fL (7.4-10.4); MONOCYTES 11.2 % (2-11); NEUTROPHILS 80.4 % (40-80); PLATELET COUNT 93 10x3/uL (130-400); RBC 4.43 10x6/uL (4.20-6.10); RDW 18.6 % (11.5-14.5)
[2020-02-07 10:10] LABS: MCV 104.3 fL (80.0-100.0); WBC 9.2 10x3/uL (4.8-10.8)
[2020-02-07 11:17] LABS: PLATELET ESTIMATE DECREASED
[2020-02-08] VITALS (24 sets, daily range): BP systolic 74–165; BP diastolic 47–93
[2020-02-08 05:27] LABS: ANION GAP 11.5 mmol/L (8-16); CARBON DIOXIDE 29.5 mmol/L (21.0-32.0); CREATININE - SERUM 4.9 mg/dL (0.6-1.3); VANCOMYCIN - RANDOM 20.4 ug/mL (10.0-20.0)
--- NOTE | 2020-02-08 07:00 | NUR ---
REPORT RECEIVED. ASSESSMENT COMPLET EPER FLOW SHEET. VSS. PT RESTING COMFORTABLY WILL CONTINUE TOMONITOR
--- NOTE | 2020-02-08 09:15 | NUR ---
PT ATE 100% BREAKFAST
--- NOTE | 2020-02-08 11:00 | NUR ---
REASSESSMENT COMPLETE PER FLOW SHEET. VSS. PT RESTING COMFORTABLYWILL CONTINUE TO MONITOR
--- NOTE | 2020-02-08 13:00 | NUR ---
PT ATE 100% LUNCH
--- NOTE | 2020-02-08 14:30 | NUR ---
WAS ABLE TO REMOVE 2900ML ON HEMODIALYSIS TREATMENT TODAY, PATIENT WAS VERBALLY ABUSIVE AND DEMANDING THROUGHOUT THE TREATMENT. PATIENT WOULD ASK FOR THINGS LIKE HIS PERSONAL OXYGEN TANK, I EXPLAINED HE COULD NOT USE HIS PERSONAL TANK ALONG WITH THE OXYGEN HE WAS ALREADY WEARING, ETC. PATIENT STILL AGGRIVATED BECAUSE STAFF REMOVED HIS PERSONAL MEDICATION FROM THE ROOM AND PLACED IN THE SAFE. HE WANTS THOSE RETURNED. ALSO THREATENED TO THROW HIS PHONE AT ME AT END OF TREATMENT.
--- NOTE | 2020-02-08 15:15 | NUR ---
REASSESSMENT COMPLETE PER FLOW SHEET. VSS. NO NEW HCANGES IWLL CONTINUE TO MONITOR
--- NOTE | 2020-02-08 17:00 | NUR ---
PT GENERATION ENGINEER LIGHT. GIVEN ICE WATER
[2020-02-09] VITALS (23 sets, daily range): BP systolic 90–154; BP diastolic 48–103
--- NOTE | 2020-02-09 07:00 | NUR ---
REPORT RECEVIED FROM THE OFF GOING RN. SEE ASSESSMENT IN THE PTS FLOW SHEET. VSS. CALL LIGHT IN REACH. WILL CONT POC.
--- NOTE | 2020-02-09 07:45 | NUR ---
LAB HAVING ISSUES DRAWING BLOOD. PAIL BAILER OBTAIN A SMALL BLOOD SAMPLE. BUT STILL HAVENG ISSUES WITH AM LABS.
--- NOTE | 2020-02-09 07:46 | NUR ---
Nutrition follow-up: Pt receiving a renal diet with po intake 100% of most meals Labs reviewed Wt: 234# Dialysis 02/07 PO intake good at this time RDN following.
--- NOTE | 2020-02-09 08:00 | NUR ---
VINICIUS WITH IR REQUESTED THE PT GETS DIALYSIS KATHERIN BEFORE THE IR PROCEDURE. DR BOWER IN THE UNIT. SHE WAS NOTIFIED.
--- NOTE | 2020-02-09 08:26 | NUR ---
SPOKE WITH THE PHARMACIST ABOUT THE PTS MEDICATION. OK TO HOLD SENSIPAR AND RENAGEL BECAUSE HE IS NPO. OK TO GIVE THE REST WITH SMALL SIP OF WATER.
--- NOTE | 2020-02-09 09:19 | NUR ---
DIALYSIS NURSE CALLED AND STATED SHE WILL BE HERE SHORTLY FOR TX.
--- NOTE | 2020-02-09 09:57 | NUR ---
DIALYSIS NURSE AT THE PTS BEDSIDE. WILL CONT POC.
--- NOTE | 2020-02-09 11:37 | NUR ---
BILATERAL LOWER LEGS ARE HAIRLESS, COOL TO THE TOUCH, EDEMATOUS AND DISCOLORED/PURPLISH-RED. KNEES AND TOES ARE MOTTLED. LLE HAS SCABS FROM RUPTURED BLISTERS. RECOMMEND KEEPING ELEVATED AND WRAPPING WITH ABD PADS AND KERLIX IF WEEPING CONTINUES IN LEGS. WOUND CARE WILL MONITOR.
--- NOTE | 2020-02-09 12:00 | NUR ---
STOPPED PT TX APPROX. 1.5HR INTO TX PT TO GO TO IR FOR PROCEDURE. WAS ABLE TO GET 1L FLUID OFF. VSS. PT VERBAL BUT HAVING SOME CONFUSION. WANTED TO GET DRESSED SO HE COULD WALK TO PROCEDURE. REASSURED PT THAT HE WILL TRAVEL BY BED TO IR.
[2020-02-09 12:18] LABS: ANION GAP 12.6 mmol/L (8-16); CALCIUM 7.7 mg/dL (8.5-10.1); CARBON DIOXIDE 26.1 mmol/L (21.0-32.0); CREATININE - SERUM 4.7 mg/dL (0.6-1.3); POTASSIUM - SERUM 3.7 mmol/L (3.5-5.1); VANCOMYCIN - RANDOM 24.4 ug/mL (10.0-20.0)
--- NOTE | 2020-02-09 12:41 | NUR ---
dialysis nurse completed with dialysis. 1L removed per nurse. pt vss. Dr. Medina paged rt claire preop meds.
--- NOTE | 2020-02-09 12:48 | NUR ---
consents for procedure, anestesia and blood signed by the pt. witnikitanessed with another nurse and placed in chart.
--- NOTE | 2020-02-09 13:50 | NUR ---
PT LEFT WITH IR TEAM FOR PROCEDURE. LEFT IN A STABLE CONDITION.
--- NOTE | 2020-02-09 16:00 | NUR ---
PT BACK IN THE UNIT. PT INTUBATED. PER DR RUBY, CONSULT DR BRITT. DR BRITT PAGED AND MADE AWARE OF PT. OK FOR DIPROVAN. XRAY PER DR BABIN. OK WITH TUBE PLACEMENT. DIPROVAN STARTED PER DR BRITT. RIGHT GROIN SITE C/D/I. NO HEMATOMA NOTED. BILATERAL PT PULSES DOPPERABLE. VSS AT THIS TIME. PT LYING FLAT. CALL LIGHT IN REACH. WILLC ONT POC.
--- NOTE | 2020-02-09 16:47 | NUR ---
CHUCK CHAMBERS RN STARTED IV IN THE RIGHT ARM
--- NOTE | 2020-02-09 18:19 | NUR ---
PT REMAINS DOING WELL. VSS. WILL CONT POC. ICE CHIPS PROVIDED.
--- NOTE | 2020-02-09 19:00 | NUR ---
SHIFT ASSESSMENT COMPLETE. VS STABLE. NO VISUAL CUES OF DISTRESS NOTED. WILL CONTINUE TO MONITOR.
--- NOTE | 2020-02-09 20:00 | NUR ---
VSS. WILL CONTINUE TO MONITOR.
--- NOTE | 2020-02-09 21:00 | NUR ---
VSS. WILL CONTINUE TO MONITOR.
--- NOTE | 2020-02-09 22:00 | NUR ---
VSS. WILL CONTINUE TO MONITOR.
--- NOTE | 2020-02-09 23:00 | NUR ---
VSS. WILL CONTINUE TO MONITOR.
[2020-02-10] VITALS (23 sets, daily range): BP systolic 68–118; BP diastolic 30–99
--- NOTE | 2020-02-10 | NUR ---
VSS. WILL CONTINUE TO MONITOR.
[2020-02-10 04:18] LABS: CALCIUM 8.2 mg/dL (8.5-10.1); CARBON DIOXIDE 23.1 mmol/L (21.0-32.0); CREATININE - SERUM 5.3 mg/dL (0.6-1.3); POTASSIUM - SERUM 4.1 mmol/L (3.5-5.1)
--- NOTE | 2020-02-10 06:54 | NUR ---
SHIFT ASSESSMENT COMPLETE. VS STABLE. NO VISUAL CUES OF DISTRESS NOTED. WILL CONTINUE TO MONITOR.
--- NOTE | 2020-02-10 09:55 | NUR ---
0700 BEDSIDE REPORT RECEIVED FROM NURSE OBDULIA FROM CREDIT RISK MODELER VENT SETTINGS NOTED PROPOFOL INFUSING AT 9MCG/KG/MIN
--- NOTE | 2020-02-10 09:58 | NUR ---
0900 O2 SAT DROPPING TO 82% SUCTIONED ETT DANILO RT AT BEDSIDE OBTAINING ABGS INCREASED FIO2 TO 50% O2 SAT SLOWELY INCREASING TO 98%
[2020-02-10 10:52] LABS: HEMATOCRIT 42.3 % (42.0-54.0); HEMOGLOBIN 12.7 g/dL (13.5-17.5); LYMPHOCYTES 2.8 % (15-50); MCH 31.5 pg (26.0-34.0); RBC 4.03 10x6/uL (4.20-6.10); RDW 18.9 % (11.5-14.5); WBC 7.5 10x3/uL (4.8-10.8)
[2020-02-10 10:54] LABS: PLATELET COUNT 119 10x3/uL (130-400)
--- NOTE | 2020-02-10 16:45 | NUR ---
1100 REPOSITIIONED IN BED WITH ASSIST X 2 USING WEDGES FOR POSITIONING ON SIDE
--- NOTE | 2020-02-10 16:53 | NUR ---
[facility] EQUIP[facility] INTO THE ROOM REPOSITIONED IN BED WITH DIALYSIS NURSE ASSIST
--- NOTE | 2020-02-10 17:23 | NUR ---
0760 ETT SUCTION THICK SCANLON CLOTTY SECREATIONS CLEARED IN AIRWAY 02 SAT UP TO 96
--- NOTE | 2020-02-10 19:00 | NUR ---
REPORT RECEIVED. PT AWAKE REACHING FOR ETT AGAINST RESTRAINTS O2 SAT READING 80'S. BAGGED AND SUCTIONED LARGE AMOUNT THICK CLEAR SECRETIONS ORALLY AND VIA ETT. RIGHT ARM RED SWOLLEN AND WEEPING RIGHT UPPER ARM AND FORARM IV X2 INFILTRATED D/C WITH CATH INTACT. CM READING A FLUTTER CONTROLLED. PT LEFT LOWER EXTREMITY REDDENED FROM [place] DOWN. BED LOW POSITION SIDE RAILS UP TIMES 3 FOR SAFETY. PT NODS HEAD AND FOLLOWS COMMANDS LIGHT SEDATION WITH PROPOFOL WILL CONTINUE TO MONITOR
--- NOTE | 2020-02-10 20:57 | NUR ---
BSPEERS SPOKE WITH DR BRITT PEEP INCREASED TO 10 AND 02 100%
--- NOTE | 2020-02-10 21:35 | NUR ---
PTS O2 SAT STAYING DOWN 100%. BAGGED AND LAVAGED LARGE AMOUNT THICK CLEAR SECRETIONS VIA ETT
--- NOTE | 2020-02-10 21:53 | NUR ---
SPOKE WITH DR BRITT INFORMED OF STAT CHEST AND BAGGED LAVAGE WITH O2 SAT BEING IN 80'S. ABG ORDERED
--- NOTE | 2020-02-10 22:19 | NUR ---
PO2 ON ABG 229 O2 SAT SHOWING 80'S. DUE TO VASCULAR DISEASE UNABLE TO GET ACCURATE O2 SAT READING
--- NOTE | 2020-02-10 23:20 | NUR ---
PAGED DR BRITT ABG RESULTS GIVEN AND UPDATED ON HYPOTENSION.
[2020-02-11] VITALS (66 sets, daily range): BP systolic 70–130; BP diastolic 21–79; Ht 180.3 cm; Wt 88.7 kg
--- NOTE | 2020-02-11 03:00 | NUR ---
REASSESSMENT COMPLETE CPOC
[2020-02-11 06:49] LABS: BASOPHILS 0.1 % (0-2); EOSINOPHILS 0.1 % (0-7); HEMATOCRIT 38.1 % (42.0-54.0); HEMOGLOBIN 11.9 g/dL (13.5-17.5); IMMATURE GRANULOCYTES 0.3 % (0-5); LYMPHOCYTES 4.6 % (15-50); MCH 32.1 pg (26.0-34.0); MCHC 31.2 g/dL (31.0-37.0); MEAN PLATELET VOLUME 11.3 fL (7.4-10.4); NEUTROPHILS 86.9 % (40-80); RBC 3.71 10x6/uL (4.20-6.10); RDW 18.1 % (11.5-14.5)
[2020-02-11 06:50] LABS: MCV 102.7 fL (80.0-100.0); PLATELET COUNT 154 10x3/uL (130-400); WBC 9.6 10x3/uL (4.8-10.8)
--- NOTE | 2020-02-11 07:00 | NUR ---
PATIENT SEDATED ON DIPRIVAN AT 20 MCG/KG/MIN. ETT SECURE WITH BILATERAL LUNGS EQUAL AND FAIRLY CLEAR FAINT CRACKLES NOTED. OG CLAMPED. IV RIGHT HAND WITHOUT REDNESS OR SWELLING INFUSING WITH DIPRIVAN, NS AT KVO. FOSTER CATH CRISELDA. FOSTER DRAINING DARK KALEB URINE.
[2020-02-11 07:02] LABS: CARBON DIOXIDE 25.1 mmol/L (21.0-32.0); CREATININE - SERUM 4.5 mg/dL (0.6-1.3); MAGNESIUM - SERUM 2.3 mg/dL (1.8-2.4); PHOSPHOROUS 7.7 mg/dL (2.5-4.9); POTASSIUM - SERUM 4.1 mmol/L (3.5-5.1); VANCOMYCIN - RANDOM 28.1 ug/mL (10.0-20.0)
--- NOTE | 2020-02-11 07:57 | NUR ---
NOTED ORDER FOR CVL PLACEMENT BY [facility]AL[facility] [employer]NAL CUSTODIAN [employer]LET[employer] EQUIPMENT. PT ON LEVOPHED.
--- NOTE | 2020-02-11 07:59 | NUR ---
DR MUSNON PAGED AT THIS TIME.
--- NOTE | 2020-02-11 11:00 | NUR ---
DR. MUNSON HERE RIJ TRIPLE LUMEN CENTRAL LINE PLACED. PATIENT TOLERATED WELL. CXR DONE. LINE PLACEMENT CONFIRMED BY DR. BRITT
--- NOTE | 2020-02-11 13:00 | NUR ---
COMPLETE HIBCLENS BATH GIVEN WITH FOSTER CATH CARE DONE. GOOD BRUIT LEFT UPPER ARM FISTULA. DRESSING DRY AND INTACT. NO SKIN BREAKDOWN NOTED. PATIENT TOLERATED WELL.
--- NOTE | 2020-02-11 14:21 | NUR ---
DIALYSIS IN PROGRESS
--- NOTE | 2020-02-11 14:54 | NUR ---
NOT TOLERATING DOPAMINE HEART RATE UP TO 109-128 ATRIAL FLUTTER. DECREASED DOPAMINE TO 3 MCG/KG/MIN FOR ELEVATED HEART RATE
--- NOTE | 2020-02-11 15:21 | NUR ---
HEART RATE GREATER THAN 130. DOPAMINE TURNED OFF. HEART RHTYM CHANGING. QRS WIDER. DOBUTAMINE TURNED OFF. PATIENT RETURNED TO ATRIAL FLUTTER RATE IN 80'S. LEVOPHED CONTINUED 10 MCG FOR BLOOD PRESSURE WHILE DIALYSIS IN PROGRESS
--- NOTE | 2020-02-11 16:57 | NUR ---
DIALYSIS STILL IN PROGRESS. LEVOPHED INCREASED TO MAINTAIN SBP GREATER THAN 90. MONITOR ATRIAL FLUTTER RATE 65
--- NOTE | 2020-02-11 19:00 | NUR ---
RECIVED BEDSIDE SHIFT REPORT. PT IS INTUBATED/SEDATED AND TURNED TO THE RIGHT. VSS. RESTRATINS ARE OBSERVED WITH GOOD CAP REFILLL TO BILAT UPPER EXTREMTIES. ARMS ARE ELEVATED ON PILLOWS. FOSTER CATHEOTOR IS OBSERVED DRANINGN AND HANGING BELOW THE BLADDER ON THE BED. IT IS SECURED TO UPPER THIGH. RIGHT IJ IS CDI TO THE RIGHT NECK. PERFORMED FULL ASSESSMENT AND WILL DOC IN FLOW SHEET. BED IS LOW,SIDE RAILSX2,CALL LIGHT WITHIN REACH. BED ALARM IS ON WILL CONINTUE TO MONITOR
--- NOTE | 2020-02-11 20:33 | NUR ---
PT IS RESTING IN BED INTUABTED/SEDATED, RESPONDS TO VOICE AND PAIN. HIS VSS AT THIS TIME. PERFORMED ORAL CARE AND TURNED TO LEFT SIDE FOR COMFORT. HEELS ARE BRIDGED OFF BED WITH PILLOW SUPPORTING THE KNEES. PT TOLERATED WELL. BED IS LEFT LOW,SIDE RAISLX2,CALL LIGHT WITHIN REACH. WILL CONINTUE TO MONITOR
--- NOTE | 2020-02-11 22:03 | NUR ---
PT IS RESTING IN BED WITH EYES CLOSED INTUBATED/SEDATED. RESPONDS TO PAIN. VSS. RESTRAINTS OBSERVED AND WILL DOC IN FLOW SHEET. ORAL CARE PROVIDED AND TURNED TO BACK AT THIS TIME. HEELS ARE BRIDGED OFF BED. BED IS LOW,SIDE RAISLX2,CALL LIGHT WITHIN REACH. BED ALARM IS ON
--- NOTE | 2020-02-11 23:00 | NUR ---
PERFORMED RE-ASSESSMENT AT THIS TIME AND WILL DOC IN FLOW SHEET. PT BRAULIO.
--- NOTE | 2020-02-11 23:54 | NUR ---
PT IS RESTING IN BED WITH INTUBATED/SEDATED. AROUSES TO PAIN. PROVIDED ORAL CARE AT THIS TIME AND TURNED TO RIGHT SIDE AND BRIDGED HEELS OFF BED. D/C RIGHT HAND IV AT THIS TIME C CATHETOR INTACT. HELD PRESSURE FOR 30 SECONDS SINCE PT IS ON HEPRAIN DRIP AND STOPPED BLEEDING. PT TOLERATED WELL. BED WAS LEFT LOW,SIDE RAISLX2,CALL LIGHT WITHIN REACH. BED ALARM IS ON. WILL CONITNUE TO MONITOR
[2020-02-12] VITALS (91 sets, daily range): BP systolic 74–139; BP diastolic 24–84
--- NOTE | 2020-02-12 01:45 | NUR ---
PT IS RESTING IN BED INTUBATED/SEDATED. VSS. PROVIDED ORAL CARE AND TURNED TO LEFT SIDE AND HAVE FEET BRIDGED OFF BED. ARMS ARE ELEVATED ON PILLOWS, RESTRAINTS WERE OBSERVED. BED IS LEFT LOW,SIDE RAISLX2,CALL LIGHT WITHIN REACH. WILL CONTINUE TO MONITOR
--- NOTE | 2020-02-12 03:06 | NUR ---
PT IS RESTING IN BED INTUBATED/SEDATED. VSS. PERFORMED RE-ASSESSMENT AT THIS TIME AND WILL DOC IN FLOWSHEET. BED IS LOW,SIDE RAILSX2,CALL LIGHT WITHIN REACH. WILL CONTINUE TO MONITOR
--- NOTE | 2020-02-12 05:00 | NUR ---
PT IS RESTING IN BED INTUBATED/SEDATED. VSS. PROVIDED ORAL CARE FOR COMFORT AND TURNED TO LEFT SIDE. HEELS ARE BRIDGED OFF BED. ARMS ARE ELEVATED ON PILLOWS TO DECREASE SWELLING. PT TOLERATED WELL. BED IS LOW,SIDE RAISLX2,CALL LIGHT WITHIN REACH. BED ALARM IS ON. WILL CONTINUE TO MONITOR
--- NOTE | 2020-02-12 06:41 | NUR ---
PT IS RESTING IN BED INTUBATED/SEDATED. VSS.SLOWNLY COMING OFF LEVOPHED. RESTRAINTS OBSERVED AND DOC IN FLOW SHEET. BED IS LOW,SIDE RAISLX2,CALL LIGHT WITHIN REACH.
--- NOTE | 2020-02-12 08:02 | NUR ---
LYING IN BED ON VENT AT THIS TIME. PT RESPONDS TO DISCOMFORT, BUT NOT CURRENTLY FOLLOWING COMMANDS SUCH SQUEEZING HANDS. PT TURNED Q2H. ORAL CARE PROVIDED Q2H. WILL CONTINUE PLAN OF CARE.
--- NOTE | 2020-02-12 10:02 | NUR ---
PER DR BRITT, KEEP PT SEDATED TODAY, WILL PROBABLY START CPAP TRIALS TOMORROW.
--- NOTE | 2020-02-12 12:01 | NUR ---
NO ACUTE DISTRESS NOTED. NO CHANGE. VSS. WILL CONTINUE PLAN OF CARE.
--- NOTE | 2020-02-12 14:01 | NUR ---
LYING IN BED ON VENT AT THIS TIME. VSS. LEVOPHED TITRATED TO ORDER. SEE IV FLOWSHEET. NO ACUTE DISTRESS NOTED. PT TURNED Q2H. ORAL CARE PROVIDED Q2H. WILL CONTINUE PLAN OF CARE.
--- NOTE | 2020-02-12 16:34 | NUR ---
SPOKE WITH PTS FAMILY ON PHONE. UPDATES PROVIDED. VSS. NO ACUTE DISTRESS NOTED. WILL CONTINUE PLAN OF CARE.
--- NOTE | 2020-02-12 18:59 | NUR ---
NOTED TUBE FEED ORDERS BY DR BRITT. WILL START SHORTLY.
--- NOTE | 2020-02-12 19:34 | NUR ---
TUBE FEEDS STARTED PER DR BRITT ORDERS VIA OGT.
--- NOTE | 2020-02-12 19:55 | NUR ---
RECIVED BEDSIDE SHIFT REPORT AT THIS TIME. PT IS INTUBATED/SEDATED. RESPONDS TO PAIN. HIS VSS. RIGHT IJ IS CDI, FOSTER CATHETOR OBSERVED HANGING BELOW BLADDER AND DRAINING. PT HAS JUST STARTED TUBE FEEDINGS PER AT 10ML/HR. WILL CHECK RESIDULE AND DOC. PERFORMED FULL ASSESSMENT AND WILL DOC IN FLOW SHEET. WILL DOC IV FLOWSHEET FOR IV MEDS GOING. HE WAS JUST TURNED TO THE RIGHT, HEELS ARE BRIDGED. WILL TURN IN 2 HOURS. RESTRIANTS ARE OBSERVED BILAT UPPER WRIST. EXTREMTIES ARE WARM. BED IS LOW,SIDE RAISLX2,CALL LIGHT WITHIN REACH. WILL CONTINUE TO MONITOR
--- NOTE | 2020-02-12 22:00 | NUR ---
PT IS RESTING IN BED INTUBATED/SEDATED. VSS. ORAL CARE PORVIDED AT THIS TIME. TURNED FOR COMFORT. HEELS ARE BRIDGED OFF BED. ARMS ARE ELEVATED ON PILLOWS TO HELP DECREASE SWELLING. RESTRAINTS ARE OBSERVED AND DOC IN FLOWSHEET. SLOWLY ABLE TO DECREASE LEVOPHED.SEE IV FLOWSHEET. BED IS LOW,SIDE RAISLX2,CALL LIGHT WITHIN REACH. WILL CONINTUE TO MONITOR
[2020-02-13] VITALS (80 sets, daily range): BP systolic 66–121; BP diastolic 35–68
--- NOTE | 2020-02-13 01:00 | NUR ---
PT IS RESTING IN BED WITH EYES CLOSED INTUABTED/SEDATED. HIS VSS. RESONDS TO DEEP PAIN AND LOCALIZED PAIN. PROVIDED ORAL CARE AND TURNED FOR COMFORT. HEELS ARE STILL BRIDGED OFF BED AND ARMS ARE ELEVATED ON PILLOWS. RESTRAINTS ARE OBSERVED AND DOC ON FLOWSHEET. BED IS LOW,SIDE RAISLX2,CALL LIGHT WITHIN REACH. WILL CONINTUE TO MONITOR
--- NOTE | 2020-02-13 03:12 | NUR ---
PT IS RESTING IN BED WITH EYES CLOSED INTUABTED/SEDATED. VSS. ORAL CARE PROVIDED AND TURNED FOR COMFORT. FEET ARE BRIDGED AND ARMS ARE ELEVATED ON PILLOWS. BED IS LOW,SIDE RAISLX2,CALL LIGHT WITHIN REACH. WILL CONTINUE TO MONITOR
[2020-02-13 04:20] LABS: BASOPHILS 0 % (0-2); EOSINOPHILS 0.7 % (0-7); HEMATOCRIT 38.5 % (42.0-54.0); HEMOGLOBIN 11.9 g/dL (13.5-17.5); IMMATURE GRANULOCYTES 0.4 % (0-5); LYMPHOCYTES 8.6 % (15-50); MCH 31.8 pg (26.0-34.0); MCHC 30.9 g/dL (31.0-37.0); MCV 102.9 fL (80.0-100.0); MEAN PLATELET VOLUME 10.5 fL (7.4-10.4); MONOCYTES 9.1 % (2-11); NEUTROPHILS 81.2 % (40-80); PLATELET COUNT 162 10x3/uL (130-400); RBC 3.74 10x6/uL (4.20-6.10); RDW 17.6 % (11.5-14.5); WBC 8.6 10x3/uL (4.8-10.8)
[2020-02-13 04:26] LABS: ALBUMIN 2.4 g/dL (3.4-5.0); ANION GAP 11.3 mmol/L (8-16); BILIRUBIN - TOTAL 0.79 mg/dL (0.2-1.3); CALCIUM 7.5 mg/dL (8.5-10.1); CARBON DIOXIDE 27.8 mmol/L (21.0-32.0); CREATININE - SERUM 4.8 mg/dL (0.6-1.3); MAGNESIUM - SERUM 2.2 mg/dL (1.8-2.4); PHOSPHOROUS 6.3 mg/dL (2.5-4.9); POTASSIUM - SERUM 4.1 mmol/L (3.5-5.1); PROTEIN - SERUM 5.5 g/dL (6.4-8.2)
--- NOTE | 2020-02-13 04:50 | NUR ---
PT IS RESTING IN BED INTUABTED/SEDATED. VSS. PROVIDED FULL BED HCG BATH AT THIS TIME AND FOSTER CATHEOTOR CARE AND FULL LINEN CHANGE. PT TOLERATED WELL. REPOSOTIONED TO LEFT SIDE. HEELS ARE BRIDGED, ARMS ELEVATED ON PILLOWS. BED WAS LEFT LOW,SIDE RAISXL2,CALL LIGHT WITHIN REACH. RESTRAINTS WERE OBSERVED
--- NOTE | 2020-02-13 05:55 | NUR ---
PTT IS 86.3. THERE IS NO CHANGE OR HOLD FOR HEPRAIN DRIP AT THIS TIME AND WILL NEED TO BE CHECK WITH THE NEXT AM LABS.
--- NOTE | 2020-02-13 06:07 | NUR ---
JUST RE-CHECK OGT NEPRO RESIDUAL. ONLY 7ML AT THIS TIME. WILL INCREASE FEEDING TO 20ML/HR AT THIS TIME.
--- NOTE | 2020-02-13 06:47 | NUR ---
PT IS RESTING IN BED INTUBATED/SEDATED. HIS VSS. BED IS LOW,SIDE RAISLX2,CALL LIGHT WIHTIN REACH.
--- NOTE | 2020-02-13 09:20 | NUR ---
0700 RECEIVED BEDSIDE REPORT FROM TODD HERCULES NIGHT NURSE PULLED UP IN BED AND REPOSITIONED ON RIGHT SIDE WITH PILLOW SUPPORT ORAL AND FACIAL CARE PROVIDED DR RUBY IN ROOM
--- NOTE | 2020-02-13 10:43 | NUR ---
Nutrition Follow-up: Noted per MD notes pt difficult to extubate. Noted that TF was started by this AM. Continues with KATIE estrada. ESRD HD TTS. TF: Nepro @ 20mL/hr Wt: 241# (02/13/20); Admit Wt: 235# (02/06/20) Meds noted: diprivan@13mL/hr (343kcal), levophed, lactulose Labs noted: Na 130(L), BUN 44(H), Cr 4.8(H), GFR 13(L), PO4 6.3(H) Recommend TF goal of Nepro @ 45mL/hr. Fluid per nephrology. RD following.
--- NOTE | 2020-02-13 14:49 | NUR ---
O9OO ORAL CARE PROVIDED SUCTIONED INLINE AND ORALLY REPOSITIONED BUTTOCK REDDENED
--- NOTE | 2020-02-13 14:54 | NUR ---
1100 SLEEPING WITH EYES CLOSED
--- NOTE | 2020-02-13 14:56 | NUR ---
1300 PATIENTS MOTHER VISITING AT BEDSIDE
--- NOTE | 2020-02-13 15:09 | NUR ---
1300 FAMILY MEMBER, LEXY, CALLED FOR UPDATE AND PROVIDED TO PASS CODE
--- NOTE | 2020-02-13 15:11 | NUR ---
1500 RUE VENOUS DOPPLER STUDY COMPLETE ORDERED
--- NOTE | 2020-02-13 21:20 | NUR ---
HEMODIALYSIS TREATMENT STOPPED 30 MINUTES EARLY, PATIENTS BLOOD PRESSURE TOO DIFFICULT TO MAINTAIN, PATIENT WAS HAVING MULTIPLE PVC'S AND HEARTRATE CHANGES ASWELL, TRIED TO JUST SLOW BLOOD FLOW AND UF DOWN AND WAIT AND SEE, BUT PATIENT'S BLOOD PRESSURE CONTINUED TO DROP. NET FLUID REMOVAL WAS 1500ML, THIS WAS DIFFICULT TO OBTAIN.
[2020-02-14] VITALS (91 sets, daily range): BP systolic 72–136; BP diastolic 4–105
--- NOTE | 2020-02-14 07:00 | NUR ---
RECEIVED BEDSIDE REPORT ON PATIENT AND ASSUMED CARE. PATEINT SEDATED ON THE VENT, AROUSES TO VOICE AND FOLLOWS COMMANDS. SPO2 - 98%, VENT SETTINGS ARE TV 500, PEEP 8, FIO2 50% AND AC 14. OG TUBE IN PLACE, VERIFIED BY ASCULTATION WITH NEPRO TUBE FEEDING AT GOAL RATE OF 35 ML/HR. RESIDUAL 10 ML. ETT 7.5 AT [address]. RIGHT IJ CVL IN PLACE WITH CVP LEVELED AND ZEROED AT 14. CM HR 90, NSR WITH NO ECTOPY NOTED. FOSTER CATH IN PLACE WITH TEA COLORED URINE NOTED. HEAD TO TOE ASSESSMENT COMPLETED. TURNED AND REPOSTIONED IN BED.
--- NOTE | 2020-02-14 09:00 | NUR ---
PATIENT TURNED AND REPOSITIONED IN BED. VSS.
--- NOTE | 2020-02-14 09:23 | NUR ---
CONSENT OBTAINED FROM DAUGHTER (TELEPHONE) FOR BRONCHOSCOPY. UPDATED AND ANSWERED QUESTIONS, DAUGHTER ALSO SPOKE AT LENGTH TO DR. HOLT.
--- NOTE | 2020-02-14 09:39 | NUR ---
PATIENT TOLERATED BRONCHOSCOPY WELL, UPDATED DAUGHTER POST PROCEDURE AND DR. HOLT ALSO SPOKE TO DAUGHTER.
--- NOTE | 2020-02-14 11:00 | NUR ---
PATIENT INCONTINENT OF STOOL, LARGE SOFT BROWN. CLEANED AND LINENS CHANGED. TURNED AND REPOSITIONED IN BED. VSS. REASSESSMENT COMPLETED.
--- NOTE | 2020-02-14 11:50 | NUR ---
RT CALLED PATIENT DESATING TO THE 80% AND RR 30S, PLACED BACK ON RATE.
--- NOTE | 2020-02-14 11:57 | NUR ---
DIALYSIS AT ROOM SETTING UP.
--- NOTE | 2020-02-14 12:55 | NUR ---
PATIENT TURNED AND REPOSITIONED IN BED. DIALYSIS ONGOING AND TOLERATING WELL.
--- NOTE | 2020-02-14 15:07 | NUR ---
REASSESSMENT COMPLETED. VSS. CVP LEVELED AND ZEROED. DIALYSIS ONGOING, TOLERATING WELL. PATIENT TURNED AND REPOSITIONED IN BED.
--- NOTE | 2020-02-14 15:37 | NUR ---
3 LITERS REMOVED PER DIALYSIS, TOLERATED WELL. VSS.
--- NOTE | 2020-02-14 16:24 | NUR ---
DR. HOLT NOTIFIED OF GRAM STAIN RESULT FROM BRONCHIAL WASHINGS HAVING A FEW WBC'S AND A FEW GRAM POSITIVE COCCI. NO ORDERS RECIEVED.
--- NOTE | 2020-02-14 16:56 | NUR ---
PATIENT TURNED AND REPOSITIONED. VSS.
--- NOTE | 2020-02-14 18:31 | OP ---
PATIENT NAME: JAVI MORELOS MEDICAL RECORD: [id number] :43 LOCATION:.[facility] D.2304 ADMISSION DATE:02/06/20 SURGEON: ELLIOTT MUNSON MD DATE OF OPERATION: 02/11/2020 PREOPERATIVE DIAGNOSES: 1. Lower extremity ischemia. 2. End-stage renal disease. 3. Ventilatory failure requiring mechanical ventilation. POSTOPERATIVE DIAGNOSES: 1. Lower extremity ischemia. 2. End-stage renal disease. 3. Ventilatory failure requiring mechanical ventilation. PROCEDURE: Right neck triple lumen central venous catheter placement. SURGEON: Elliott Munson MD [employer] REP: None. BLOOD LOSS: Minimal. ANESTHESIA: Local. COMPLICATIONS: None. A consent form was signed. The entire procedure was performed in the ICU in the presence of the patient's nurse. OPERATIVE COURSE: The patient was positioned in the Trendelenburg position. The right neck was sterilely prepped and draped. A local anesthetic was used to infiltrate the skin and subcutaneous tissues at the base of the right neck. Under ultrasonographic guidance, I percutaneously accessed the right internal jugular vein. A guidewire would advance only a short distance and this is likely due to venous occlusion or stenosis. Attention was then turned to placement of a supraclavicular antegrade central venous catheter. I then percutaneously accessed the right subclavian vein in an antegrade fashion from a supraclavicular approach. A guidewire passed easily. A small skin tierra was accomplished. A vessel dilator was used to dilate a subcutaneous tract. A 16-cm triple lumen central venous catheter was inserted to the hub. It was sutured in place times 3. All lumens flushed easily and aspirated dark, nonpulsatile blood. The site was sterilely dressed. A stat portable chest x-ray revealed adequate placement of the central venous line without radiographic evidence of complication. TRANSINT:[id number] Voice Confirmation ID: [id number] DOCUMENT ID: [id number] OPERATIVE REPORT [id number] SHAKA MORELOSEL Phill ELLIOTT MUNSON MD at 1831 CC: [id number] DICTATION DATE: 02/11/201925 COMMERCIAL CENTER MANAGER: 02/12/20 0736 ADM IN [facility] [address] [place] [address]
--- NOTE | 2020-02-14 19:00 | NUR ---
REPORT RECEIVED. PT SEDATED ON VENT, NO ACUTE DISTRESS NOTED. SOFT WRIST RESTRAINTS IN PLACE. ASSESSMENT COMPLETED, SEE FLOWSHEET. RT JUGULAR CVL INFUSING, SEE IV FLOWSHEET. WILL CONTINUE TO MONITOR.
--- NOTE | 2020-02-14 19:18 | MORECARE ---
CASE MANAGEMENT DISCHARGE SUMMARY PATIENT: JAVI MORELOS UNIT: [id number] ADM DATE: 02/06/20 AGE: 74 : 44 SEX: M ROOM/BED: D.2304 AUTHOR: JORGE LUIS ACHARYA PHYSICIAN: REFERRING PHYSICIAN: MARILUZ RUBY MD DATE OF SERVICE: 02/14/20 Discharge Plan Patient Name: JAVI MORELOS [facility] : 1945 Planned Disposition: Anticipated Discharge Date: Discharge Date: Expected LOS: Initial Reviewer: [email or web address] Initial Review Date: 02/06/2020 Generated: 02/14/20 8:17 pm Patient Name: JAVI MORELOS Page 82076 at 1917 All edits/amendments must be made on the electronic document DICTATION DATE: 02/14/201917 HEALTH AND SAFETY INSPECTOR: ZULMA 02/14/201917 RPT#: [id number] DC DATE: STATUS: ADM IN [facility] [address] [place] [address] END OF REPORT
--- NOTE | 2020-02-14 19:25 | MORECARE ---
CASE MANAGEMENT DISCHARGE SUMMARY PATIENT: JAVI MORELOS UNIT: [id number] ADM DATE: 02/06/20 AGE: 74 : 44 SEX: M ROOM/BED: D.2304 AUTHOR: JORGE LUIS ACHARYA PHYSICIAN: REFERRING PHYSICIAN: MARILUZ RUBY MD DATE OF SERVICE: 02/14/20 Discharge Plan Patient Name: JAVI MORELOS [facility] : 1945 Planned Disposition: Anticipated Discharge Date: Discharge Date: Expected LOS: Initial Reviewer: [email or web address] Initial Review Date: 02/06/2020 Generated: 02/14/20 8:24 pm DCPIA - Discharge Planning Initial Assessment Updated by [email or web address]: Louise Perez on 02/14/20 7:21 pm * Is the patient Alert and Oriented? No * How many steps to enter\exit or inside your home? * PCP [facility] * Pharmacy [facility] * Preadmission Environment Home Alone * ADLs Independent * Equipment None * List name and contact numbers for known caregivers / representatives who currently or will assist patient after discharge: LEXY NIEVES - DAUGHTER- [phone] MARIA A MORELOS - BROTHER - [phone] * Verbal permission to speak to the caregivers and representatives has been obtained from the patient. N/A * Community resources currently utilized None * Additional services required to return to the preadmission environment? No * Can the patient safely return to the preadmission environment? Yes * Has this patient been hospitalized within the prior 30 days at any hospital? No Last DP export: 02/14/20 6:18 p Patient Name: JAVI MORELOS Page [id number] at 1925 All edits/amendments must be made on the electronic document DICTATION DATE: 02/14/201924 IT INFRASTRUCTURE MANAGER: ZULMA 02/14/201924 RPT#: [id number] DC DATE: STATUS: ADM IN [facility] [address] [place] [address] END OF REPORT
--- NOTE | 2020-02-14 19:50 | MORECARE ---
CASE MANAGEMENT DISCHARGE SUMMARY PATIENT: JAVI MORELOS UNIT: [id number] ADM DATE: 02/06/20 AGE: 74 : 44 SEX: M ROOM/BED: D.2304 AUTHOR: PATRIZIADOC PHYSICIAN: REFERRING PHYSICIAN: MARILUZ RUBY MD DATE OF SERVICE: 02/14/20 Discharge Plan Patient Name: JAVI MORELOS Facility: [facility]:[place] : 1945 Planned Disposition: Anticipated Discharge Date: Discharge Date: Expected LOS: Initial Reviewer: [email or web address] Initial Review Date: 02/06/2020 Generated: 02/14/20 8:50 pm Comments DCP- Discharge Planning Updated by [email or web address]: Louise Perez on 02/14/20 6:[address] Patient Name: JAVI MORELOS Admission Status: ER Accout number: [id number] Admission Date: 02-06-2020 : 1945 Admission Diagnosis:CELLULITIS OF LEFT LOWER LIMB Attending: MARILUZ RUBY Current LOS: 8 Anticipated DC Date: Planned Disposition: Primary Insurance: MEDICARE A & B Discharge Planning Comments: CM called and spoke with patient's daughter Annita [phone] to complete initial dc planning assessment. CM educated patient on the CM role and verbal consent given by patient to complete assessment. Annita stated that her father is estranged most her life. She stated that he had been living in [facility] for 3-4 yrs but within the last year he had signed himself out and is now living in a camper alone. Patient is independent. He drives himself to dialysis in [facility]. Uncertain as to what his discharge needs or disposition. Annita stated that they will get together as a family and make a decision. She stated that she is one of eight children. CM discussed availability of home health, rehab services, and medical equipment. Patient will have family to transport home. Patient denied known discharge needs at this time. CM will continue to follow and will assist as needed with dc plans/needs. Automotive Design Drafter: Louise Perez DCPIA - Discharge Planning Initial Assessment Updated by [id number]: Louise Perez on 02/14/20 7:21 pm * Is the patient Alert and Oriented? No * How many steps to enter\exit or inside your home? * PCP [facility] * Pharmacy [facility] * Preadmission Environment Home Alone * ADLs Independent * Equipment None * List name and contact numbers for known caregivers / representatives who currently or will assist patient after discharge: ANNITA NIEVES - DAUGHTER- [phone] MARIA A MORELOS - BROTHER - [phone] * Verbal permission to speak to the caregivers and representatives has been obtained from the patient. N/A * Community resources currently utilized None * Additional services required to return to the preadmission environment? No * Can the patient safely return to the preadmission environment? Yes * Has this patient been hospitalized within the prior 30 days at any hospital? No Last DP export: 02/14/20 6:25 p Patient Name: JAVI MORELOS Page 51579 at 1950 All edits/amendments must be made on the electronic document DICTATION DATE: 02/14/201949 COUNTER STITCHER: ZULMA 02/14/201949 RPT#: [id number] DC DATE: STATUS: ADM IN [facility] [address] [place] [address] END OF REPORT
--- NOTE | 2020-02-14 21:00 | NUR ---
PT SEDATED ON VENT, NO ACUTE DISTRESS NOTED. PM MEDS TAKEN WITHOUT DIFFICULTY.
[2020-02-15] VITALS (78 sets, daily range): BP systolic 82–151; BP diastolic 41–94
--- NOTE | 2020-02-15 07:00 | NUR ---
REPORT RECEIVED. ASSESSMENT COMPLETE PER FLOW SHEET. VSS. PT RESTING COMFORTABLY WILL CONTINUE TO MONITOR
--- NOTE | 2020-02-15 07:18 | NUR ---
2300 - REASSESSMENT COMPLETED, SEE FLOWSHEET. 0100 - PT SEDATED ON VENT, THICK ORAL SECRETIONS NOTED. SUCTIONED PRN 0300 - REASSESSMENT COMPLETED, SEE FLOWSHEET. NO ACUTE DISTRESS AT THIS TIME. 0500 - PT SEDATED ON VENT, NO ACUTE DISTRESS NOTED.
--- NOTE | 2020-02-15 09:15 | NUR ---
DR HOLT AT BEDSIDE. GIVEN UPDATE. NEW ORDERS RECEIVED.
--- NOTE | 2020-02-15 11:00 | NUR ---
REASSESSMENT COMPLETE PER FLOW SHEET. VSS. PT RESTING COMFOTGABLY WILL CONTINUE TO MONITOR
--- NOTE | 2020-02-15 13:38 | NUR ---
Nutrition Follow-up: Noted that patient was extubated this PM. Currently still has TF order in computer. Recommend METAL HANGER swallow eval s/p extubation for safe PO diet. Recommend advancing to Renal diet as medically feasible. RD following.
--- NOTE | 2020-02-15 15:00 | NUR ---
REASSESSMENT COMPLETE PER FLOW SHEET. VSS. PT RESTING COMFORTABLY WILL CONTINUE TOMONITOR
--- NOTE | 2020-02-15 16:13 | MORECARE ---
CASE MANAGEMENT DISCHARGE SUMMARY PATIENT: JAVI MORELOS UNIT: [id number] ADM DATE: 02/06/20 AGE: 74 : 44 SEX: M ROOM/BED: D.2304 AUTHOR: PATRIZIA,DOC PHYSICIAN: REFERRING PHYSICIAN: MARILUZ RUBY MD DATE OF SERVICE: 02/15/20 Discharge Plan Patient Name: JAVI MORELOS Facility[facility]:[place] : 1945 Planned Disposition: Anticipated Discharge Date: Discharge Date: Expected LOS: Initial Reviewer: [email or web address] Initial Review Date: 02/06/2020 Generated: 02/15/20 5:12 pm Comments DCP- Discharge Planning Updated by [email or web address]: Shivani Francisco on 02/15/20 3:[address] CM RECEIVED A TELEPHONE CALL FROM JULIA Pollock/ [facility]. SHE STATES THE PATIENT'S DAUGHTER, ANNITA, CALLED AND ASK FOR AN EVALUATION. CLINICAL TO BE FAXED TO [phone]. CM ADVISED THE PATIENT IS IN ICU AT THE PRESENT. WILL VERIFY REQUEST W/ THE DAUGHTER. DCP- Discharge Planning Updated by [id number]: Louise Perez on 02/14/20 6:[address] Patient Name: JAVI MORELOS Admission Status: ER Accout number: [id number] Admission Date: 02-06-2020 : 1945 Admission Diagnosis:CELLULITIS OF LEFT LOWER LIMB Attending: MARILUZ RUBY Current LOS: 8 Anticipated DC Date: Planned Disposition: Primary Insurance: MEDICARE A & B Discharge Planning Comments: CM called and spoke with patient's daughter Annita [phone] to complete initial dc planning assessment. CM educated patient on the CM role and verbal consent given by patient to complete assessment. Annita stated that her father is estranged most her life. She stated that he had been living in [facility] for 3-4 yrs but within the last year he had signed himself out and is now living in a camper alone. Patient is independent. He drives himself to dialysis in [facility]. Uncertain as to what his discharge needs or disposition. Annita stated that they will get together as a family and make a decision. She stated that she is one of eight children. CM discussed availability of home health, rehab services, and medical equipment. Patient will have family to transport home. Patient denied known discharge needs at this time. CM will continue to follow and will assist as needed with dc plans/needs. Tactical Deception Plans Officer: Louise Perez DCPIA - Discharge Planning Initial Assessment Updated by [email or web address]: Louise Perez on 02/14/20 7:21 pm * Is the patient Alert and Oriented? No * How many steps to enter\exit or inside your home? * PCP [facility] * Pharmacy [facility] * Preadmission Environment Home Alone * ADLs Independent * Equipment None * List name and contact numbers for known caregivers / representatives who currently or will assist patient after discharge: ANNITA NIEVES - DAUGHTER- [phone] MARIA A MORELOS - BROTHER - [phone] * Verbal permission to speak to the caregivers and representatives has been obtained from the patient. N/A * Community resources currently utilized None * Additional services required to return to the preadmission environment? No * Can the patient safely return to the preadmission environment? Yes * Has this patient been hospitalized within the prior 30 days at any hospital? No Last DP export: 02/14/20 6:50 p Patient Name: JAVI MORELOS Page [phone] at 1613 All edits/amendments must be made on the electronic document DICTATION DATE: 02/15/201611 SUPPOSITORY MOLDING MACHINE OPERATOR: ZULMA 02/15/201611 RPT#: [id number] DC DATE: STATUS: ADM IN [facility] [address] [place] [address] END OF REPORT
--- NOTE | 2020-02-15 17:05 | NUR ---
FAMILY AT BEDSIDE. GIVEN UDPATE. NO NEW CAHNGES WILL CONTINUE TO MONITOR
--- NOTE | 2020-02-15 21:00 | NUR ---
RESTING WITH FAMILY PRESENT. BED IN LOW POSITION. SR UP X 2. CALL LIGHT IN REACH.
--- NOTE | 2020-02-15 23:00 | NUR ---
RESTING. MEDICATED FOR TEMP OF 102. WILL CONTINUE TO MONITOR. BEDSIDE ALARMS ON AND PARAMETERS SET. SR UP X 2. BED IN LOW POSITION. MOUTH CARE PROVIDED. WILL CONTINUE TO REPOSITION FOR COMFORT Q 2 HOURS.
[2020-02-16] VITALS (20 sets, daily range): BP systolic 94–132; BP diastolic 52–72
--- NOTE | 2020-02-16 07:00 | NUR ---
REPORT RECEIVED. ASSESSMENT COMPLETE PER FLOW SHEET. VSS. PT RESTING COMFORTABLY WILL CONTINUIE TO MONITOR
--- NOTE | 2020-02-16 09:15 | NUR ---
PT OFF BIPAP AT THIS TIME. TOLERATING WELL
--- NOTE | 2020-02-16 11:00 | NUR ---
REASSESSMENT COMPLETE PER FLOW SHEET. VSS. PT RESTING COMFORTABLY WILL CONTINUE TO MONITOR
--- NOTE | 2020-02-16 13:40 | NUR ---
DILAYSIS FINISHED AT THIS TIME. TOLERATED WELL. BP STABLE. 3L REMOVED
--- NOTE | 2020-02-16 15:00 | NUR ---
REASSESSMENT COMPLETE PER FLOW SHEET. PT NOTED TO BE IN A FIB RVR RATE 130 KANDY WITH CARDIOLOGY PAGED GIVEN UPDATE. PT CURRENT HR 108 UNCONTROLLED A FIB NO NEW ORDERS RECIEVED. WILL CONTINUE TO MONITOR
--- NOTE | 2020-02-16 17:15 | NUR ---
PT RESTING COMFORTALBY NO N NEW HANGES WILL CONTINUE TO MONITOR
--- NOTE | 2020-02-16 18:24 | MORECARE ---
CASE MANAGEMENT DISCHARGE SUMMARY PATIENT: JAVI MORELOS UNIT: [id number] ADM DATE: 02/06/20 AGE: 74 : 44 SEX: M ROOM/BED: D.2304 AUTHOR: PATRIZIA,DOC PHYSICIAN: REFERRING PHYSICIAN: MARILUZ RUBY MD DATE OF SERVICE: 02/16/20 Discharge Plan Patient Name: JAVI MORELOS Facility: [facility]:[place] : 1945 Planned Disposition: Anticipated Discharge Date: Discharge Date: Expected LOS: Initial Reviewer: [email or web address] Initial Review Date: 02/06/2020 Generated: 02/16/20 7:23 pm Comments DCP- Discharge Planning Updated by [email or web address]: Shivani Francisco on 02/16/20 5:[address] LATE ENTRY CM SPOKE WITH PATIENT'S DAUGHTER, ANNITA THIS EARLY AM. SHE CONFIRMED THE REFERRAL TO [facility] FOR EVALUATION. CLINICAL FAXED TO JULIA FOR REVIEW. CM REC TELEPHONE CALL FROM JULIA Pollock/ [facility]. THEY ARE NOT ACCEPTING ANY DIALYSIS PATIENTS SECONDARY TO COVID 19 ISSUE. JULIA STATES SHE WILL TELL THE PATIENT'S DAUGHTER. DCP- Discharge Planning Updated by [email or web address]: Shivani Francisco on 02/15/20 3:[address] CM RECEIVED A TELEPHONE CALL FROM JULIA Pollock/ [facility]. SHE STATES THE PATIENT'S DAUGHTER, ANNITA, CALLED AND ASK FOR AN EVALUATION. CLINICAL TO BE FAXED TO [phone]. CM ADVISED THE PATIENT IS IN ICU AT THE PRESENT. WILL VERIFY REQUEST W/ THE DAUGHTER. DCP- Discharge Planning Updated by [email or web address]: Louise Perez on 02/14/20 6:[address] Patient Name: JAVI MORELOS Admission Status: ER Accout number: [id number] Admission Date: 02-06-2020 : 1945 Admission Diagnosis:CELLULITIS OF LEFT LOWER LIMB Attending: MARILUZ RUBY Current LOS: 8 Anticipated DC Date: Planned Disposition: Primary Insurance: MEDICARE A & B Discharge Planning Comments: CM called and spoke with patient's daughter Annita [phone] to complete initial dc planning assessment. CM educated patient on the CM role and verbal consent given by patient to complete assessment. Annita stated that her father is estranged most her life. She stated that he had been living in [facility] for 3-4 yrs but within the last year he had signed himself out and is now living in a camper alone. Patient is independent. He drives himself to dialysis in [facility]. Uncertain as to what his discharge needs or disposition. Annita stated that they will get together as a family and make a decision. She stated that she is one of eight children. CM discussed availability of home health, rehab services, and medical equipment. Patient will have family to transport home. Patient denied known discharge needs at this time. CM will continue to follow and will assist as needed with dc plans/needs. Aircraft Line Assembler: Louise Perez DCPIA - Discharge Planning Initial Assessment Updated by [id number]: Louise Perez on 02/14/20 7:21 pm * Is the patient Alert and Oriented? No * How many steps to enter\exit or inside your home? * PCP [facility] * Pharmacy [facility] * Preadmission Environment Home Alone * ADLs Independent * Equipment None * List name and contact numbers for known caregivers / representatives who currently or will assist patient after discharge: ANNITA NIEVES - DAUGHTER- [phone] MARIA A MORELOS - BROTHER - [phone] * Verbal permission to speak to the caregivers and representatives has been obtained from the patient. N/A * Community resources currently utilized None * Additional services required to return to the preadmission environment? No * Can the patient safely return to the preadmission environment? Yes * Has this patient been hospitalized within the prior 30 days at any hospital? No Last DP export: 02/15/20 3:13 pm Patient Name: JAVI MORELOS Page 41632 at 1824 All edits/amendments must be made on the electronic document DICTATION DATE: 02/16/201822 CLOTH COLORS EXAMINER: ZULMA 02/16/201822 RPT#: [id number] DC DATE: STATUS: ADM IN [facility] [address] [place] [address] END OF REPORT
--- NOTE | 2020-02-16 19:00 | NUR ---
SHIFT ASSESSMENT COMPLETE. VSS STABLE. NO VISUAL CUES OF DISTRESS NOTED. WILL CONTINUE TO MONITOR.
--- NOTE | 2020-02-16 21:00 | NUR ---
VSS STABLE. WILL CONTINUE TO MONITOR.
--- NOTE | 2020-02-16 23:00 | NUR ---
VSS STABLE. WILL CONTINUE TO MONITOR.
[2020-02-17] VITALS (23 sets, daily range): BP systolic 100–140; BP diastolic 53–87
--- NOTE | 2020-02-17 01:00 | NUR ---
VSS STABLE. WILL CONTINUE TO MONITOR.
--- NOTE | 2020-02-17 03:00 | NUR ---
VSS STABLE. WILL CONTINUE TO MONITOR.
--- NOTE | 2020-02-17 05:00 | NUR ---
VSS STABLE. WILL CONTINUE TO MONITOR.
--- NOTE | 2020-02-17 07:00 | NUR ---
REPORT RECEIVED. ASSESSMENT COMPLETE PER FLOW SHEET. VSS. PT RESTING COMFORTABLY WILL CONTINE TO MONITOR
--- NOTE | 2020-02-17 09:20 | NUR ---
AM MEDS ADM. NO NEW CHANGES PT RESTING COMFORTBLY WILL CONTINUE TO MONTOR
--- NOTE | 2020-02-17 10:00 | NUR ---
NUTRITION F/U PT REMAINS NPO AWAITING SWALLOW EVAL. NURSING REPORTS PT TAKING MEDS WITH APPLESAUCE WITHOUT DIFFICULTY. WILL PROVIDE DIET WHEN APPROPRIATE. RD FOLLOWING
--- NOTE | 2020-02-17 11:00 | NUR ---
REASSESSMENT COMPLETE PER FLOW SHEET. VSS. PT RESTING COMFORTABLY WILL CONTINUET OMONITOR
--- NOTE | 2020-02-17 13:10 | NUR ---
DIALYSIS AT BEDSIDE GIVEN UPDATE
--- NOTE | 2020-02-17 15:00 | NUR ---
REASSESSMENT COMPLETE PER FLOW SHEET. VSS. NO NEW CHANGES WILL CONTINUE TO MONITOR
--- NOTE | 2020-02-17 17:00 | NUR ---
PT GIVEN DINNER ATE 40% NEEDS MET
[2020-02-18] VITALS (23 sets, daily range): BP systolic 91–150; BP diastolic 45–80
--- NOTE | 2020-02-18 02:46 | NUR ---
1900-ASSESSMENT COMPLETED. REPOSITIONED. ORAL CARE PROVIDED. O2 AT 8L VIA NC. 2100-REPOSITIONED, ORAL CARE PROVIDED. 1238-QR-HGOHXGELAH COMPLETED. NO CHANGES SINCE LAST ASSESSMENT. ORAL CARE PROVIDED, REPOSITIONED 0100-REPOSITIONED. ORAL CARE PROVIDED.
--- NOTE | 2020-02-18 03:00 | NUR ---
RE-ASSESSMENT COMPLETED. NO CHANGES SINCE LAST ASSESSMENT. VSS
--- NOTE | 2020-02-18 07:25 | NUR ---
0500-BM NOTED, COMPLETE LINEN CHANGE
--- NOTE | 2020-02-18 08:07 | NUR ---
SPO2 DROPS TO 85% ON 10 HIGHFLOW. PT PULLED UP IN BED AND SPO2 RETURNS TO 93%. PT CONTINOUSLY PULLS SELF DOWN AND SPO2 DROPS BELOW 90%. BIPAP REPLACED. SPO2 BACK UP TO 97%.
--- NOTE | 2020-02-18 11:04 | NUR ---
HD IN PROGRESS
--- NOTE | 2020-02-18 18:48 | NUR ---
1500- 3L TAKEN OFF DURING HD. PT ELÍAS WELL. VSS.
--- NOTE | 2020-02-18 19:55 | NUR ---
1900- ASSESSMENT COMPLETED. EYES CLOSED, WOKE WHEN NURSE ENTERED. CONFUSION NOTED. O2 AT 10L HF NC.
--- NOTE | 2020-02-18 20:51 | NUR ---
SMALL BM NOTED. COMPLETE LINEN CHANGE WITH CHG BATH. CHANGED CVL DRESSING TO RIGHT IJ USING STERILE TECHNIQUE AND OUR PROTOCOL. TOLERATED WITHOUT COMPLICATIONS. DATE, TIMED, AND INITIAL DRESSING. DRANK 218 ML OF NECTAR THICK TEA WITHOUT ANY CHOKING.
[2020-02-19] VITALS (23 sets, daily range): BP systolic 95–131; BP diastolic 37–74
--- NOTE | 2020-02-19 00:53 | NUR ---
[id number] COMPLETED. NO CHANGES SINCE LAST ASSESSMENT 0055- BIPAP ON. EYES CLOSED, VSS.
--- NOTE | 2020-02-19 03:22 | NUR ---
REASSESSMENT COMPLETED. NO CHANGES SINCE LAST ASSESSMENT. REPOSITIONED
--- NOTE | 2020-02-19 05:05 | NUR ---
BIPAP ON. NO COMPLAINTS. VSS. AWAKE, CONFUSED
--- NOTE | 2020-02-19 08:16 | NUR ---
ASSISTED WITH BREAKFAST TRAY. PT SAT 45 DEG IN BED AND FED. PT ATE 80% OF MEAL WITH OUT DIFFICULTY. RESTRAINTS OFF. BED ALARM ON. CALL LIGHT IN REACH.REORIENTED PT SEVERAL TIMES. PT CONFUSED BUT IS ATTEMPTING TO REORIENT.
--- NOTE | 2020-02-19 10:40 | NUR ---
PT USING CALL LIGHT FOR NEEDS. STILL NOT RESTRAINED. PT IS NOT PULLING ON LINES BUT REQUIRES FREQ REORIENTING.
--- NOTE | 2020-02-19 15:33 | NUR ---
PT INC OF URINE. BATHED AND LINENS CHANGED. POSITIONED FOR COMFORT. ALL MONITORING EQUIPMENT ATTACHED.
--- NOTE | 2020-02-19 17:03 | NUR ---
ASSIST WITH MEAL TRAY AFTER PT POSITIONED AT 45 DEG IN BED.
--- NOTE | 2020-02-19 17:59 | NUR ---
SPO2 85%. REPLACED NC AND SPO2 RETURNS TO 95% QUICKLY. REORIENTED PT TO IMPORTANCE OF WEARING NC.
[2020-02-20] VITALS (24 sets, daily range): BP systolic 66–129; BP diastolic 38–76
--- NOTE | 2020-02-20 02:32 | NUR ---
1900- ASSESSMENT COMPLETED. O2 AT 4L HF NC. CONFUSION NOTED. ALERT. 2099-REPOSITIONED. ORAL CARE PROVIDED. 2129- PATIENT PULLING OXYGEN OFF. TOLERATING MEDICATION WITHOUT DIFFICULTY, CRUSHED MEDS. PATIENT TRYING TO GET UP OOB. BED ALARM ON. 2139- BIPAP WAS PLACED ON. PATIENT CONT TO PULL OFF. PICKING AT RIGHT IJ. RESTRAINTS REAPPLIED PER NEW ORDERS. 0-REPOSITIONED. RE-ASSESSMENT COMPLETED. 0100- HAD BM, CHANGED LINEN. REPOSITIONED.
--- NOTE | 2020-02-20 07:10 | NUR ---
REPORT RECEIVED FROM SECOND WORKER AND PATIENT CARE ASSUMED. PATIENT LAYING IN BED ON BACK HOB ELEVATED 30 DEGREES BUT PATIENT HAS SLID DOWN IN BED. BIPAP IN PLACE, WRIST RESTRAINTS IN PLACE, AND BED ALARM IN PLACE AND TURNED ON. PATIENT IS CONFUSED AND REQUIRES RE-DIRECTION. RESTRAINTS OFF FOR REPOSITIONING AND PATIENT ATTEMPTS TO OULL OUT CENTRAL LINE. RESTRAINTS RE-APPLIED. WILL CONTINUT WITH PLAN OF CARE. SR UP X 2 BED IN LOW POSITION AND CALL LIGHT IN REACH.
--- NOTE | 2020-02-20 07:32 | NUR ---
0300- REASSESSMENT COMPLETED. 0500- REPOSITIONED. TRYING TO COME OUT OF BED.
--- NOTE | 2020-02-20 09:19 | NUR ---
ASSESSMENT COMPLETED. PATIENT CONTINUES TO SLIDE DOWN IN BED AND ATTMEPTING TO PULL DENTRAL LINES OUT. PATIENT IS CONFUSED AND REQUIRES REDIRECTION. HOB ELEVATED 40 DEGREES. ASSISTED WITH MEAL WITH RESTRAINTS OFF AND BED ALARM ON. PATIENT CONSUMED 75% AND DRANK 100% OF NECTAR THICKED FLUIDS. VSS. PATIENT REPOSITIONED FOR COMFORT AND RESTRAINTS REAPPLIED. BED ALARM IN PLACE AND TURNED ON. WILL CONTINUE TO MONIOR. SR UP X 2 BED IN LOW POSITION AND CALL LIGHT IN REACH.
[2020-02-20 09:31] LABS: ALBUMIN 2.9 g/dL (3.4-5.0); ANION GAP 10.7 mmol/L (8-16); BILIRUBIN - DIRECT 0.63 mg/dL (0.00-0.30); BILIRUBIN - INDIRECT 0.54 mg/dL (0.00-1.00); BILIRUBIN - TOTAL 1.17 mg/dL (0.2-1.3); CALCIUM 8.9 mg/dL (8.5-10.1); CARBON DIOXIDE 31.6 mmol/L (21.0-32.0); CREATININE - SERUM 4.5 mg/dL (0.6-1.3); POTASSIUM - SERUM 3.3 mmol/L (3.5-5.1); PROTEIN - SERUM 6.4 g/dL (6.4-8.2); VANCOMYCIN - RANDOM 15.9 ug/mL (10.0-20.0)
[2020-02-20 09:42] LABS: BASOPHILS 0.2 % (0-2); EOSINOPHILS 0.8 % (0-7); HEMOGLOBIN 10.9 g/dL (13.5-17.5); IMMATURE GRANULOCYTES 1.2 % (0-5); LYMPHOCYTES 9.1 % (15-50); MCH 31.2 pg (26.0-34.0); MCHC 29.5 g/dL (31.0-37.0); MEAN PLATELET VOLUME 9.9 fL (7.4-10.4); MONOCYTES 8.8 % (2-11); NEUTROPHILS 79.9 % (40-80); PLATELET COUNT 194 10x3/uL (130-400); RBC 3.49 10x6/uL (4.20-6.10); RDW 16.8 % (11.5-14.5); WBC 9.5 10x3/uL (4.8-10.8)
--- NOTE | 2020-02-20 10:54 | NUR ---
Nutrition follow-up: Diet advanced to renal consistent CHO puree with [place] thick liquids PO intake ~60% average of meals Labs reviewed Wt: 219# RDN following.
--- NOTE | 2020-02-20 11:00 | NUR ---
PATIENT REASSESMENT COMPLETED AND REPOSITIONED PATIENT FOR COMFORT. PATIENT CONTINUES TO BE IN WRIST RESTRAINTS DUE TO ATTEMMPTING TO PULL OFF O2 AND PULL OUT RT IJ. PATIENT IS STABLE AND VSS. WILL CONTINUE TO MONITOR. SR UP X 2 BED IN LOW POSITON AND CALL LIGHT IN REACH.
--- NOTE | 2020-02-20 14:30 | NUR ---
PATIENT RESTING QUIETLY WITH EYES CLOSED. NC IN PLACE WITH 02 @ 4. SATS FROM 902 TO 95%. WILL CONTINUE TO MONITOR. SR UP X 2 BED IN LOW POSITION AND CALL LIGHT IN REACH.
--- NOTE | 2020-02-20 17:30 | NUR ---
PATIENT HAS SLID DOWN IN BED AND DE-SATING. PATIENT PULLED UP IN BED REPOSITIONED FOR COMFORT AND BIPAP PLACED. O2 SAT 97%. WILL CONTINUE TO MONITOR. SR UP X 2 BED IN LOW POSTION AND CALL LIGHT IN REACH.
--- NOTE | 2020-02-20 20:15 | NUR ---
REC'D WITH EYES CLOSED, ON BIPAP, RESP EVEN UNLABORED, O2 SATS UPPER 90S TO 100% LUNGS WITH FEW + CRACKLES BILAT. R IJTL PATENT SALINE LOCKED, SITE CLEAR OF REDNESS OR EDEMA. REPOSITIONED BACK UP IN BED. DIALYSIS NURSE HERE TO START TREATMENT, WILL MONITOR BP MARGINAL.
--- NOTE | 2020-02-20 22:30 | NUR ---
DIALYSIS CUT SHORT BP LOWER AT 66/47. RESTLESS NOW, WANTING BIPAP OFF, EXPLAINED THAT HE CONT TO NEED IT TO BREATHE. SAYS HE KNOWS BUT HE "JUST NEEDS TO WALK AROUND. WILL MONITOR FOR BP.
--- NOTE | 2020-02-20 23:06 | NUR ---
UNABLE TO COMPLETE HD TREATMENT DUE TO HYPOTENSION, TACHICARDIA, AND AGGITATION. NET FLUID REMOVED 200ML.
[2020-02-21] VITALS (16 sets, daily range): BP systolic 82–105; BP diastolic 24–95
--- NOTE | 2020-02-21 00:45 | NUR ---
BP HAS STABILIZED SINCE COMING OFF DIALYSIS. CONT IN SOFT WRIST RESTRAINTS FOR PROTECTION OF LINES. CAN GRAB HOLD THINGS AND HAS A VERY STRONG HARDWARE ENGINEERING MANAGER. DOES NOT FOLLOW DIRECTIONS
--- NOTE | 2020-02-21 03:00 | NUR ---
LYING QUIETLY AT PRESENT NO SIGNS OF DISTRESS. MONITORING VS, BP REMAINS STABLE
--- NOTE | 2020-02-21 05:30 | NUR ---
REMAINS IN SOFT WRIST RESTRAINT. NO CHANGES IN INITIAL ASSESSMENT. WILL CONT WITH CURRENT PLAN OF CARE
--- NOTE | 2020-02-21 07:10 | NUR ---
REPORT RECEIVED FROM REGIONAL COORDINATOR AND PATIENT CARE RECEIVED. PATIENT LAYING IN BED WITH EYES CLOSED AND BREATHING EVENLY.BIPAP IN PLACCE . VSS. WILL CONTINUE TO MONITOR. SR UP X 2 BED LOW POSITION AND CALL LIGHT IN REACH.
--- NOTE | 2020-02-21 07:10 | NUR ---
REPORT RECEIVED FROM TELECOMMUNICATION TOWER TECHNICIAN AND PATIENT CARE ASSUMED. PATIENT LAYING ON BACK WITH EYES CLOSED AND ON VENT. WILL CONTINUE WITH PLAN OF CARE. SR UP X 2 BED IN LOW POSITION AND CALL LIGHT IN REACH.
--- NOTE | 2020-02-21 07:15 | NUR ---
REPORT RECEIVED. ASSESSMENT COMPLETE PER FLOW SHEET. VSS. PT RESTING COMFORTABLY WILL CONTINUE TO MONITOR
--- NOTE | 2020-02-21 09:13 | NUR ---
PT ATE 75% BREAFKAST.
--- NOTE | 2020-02-21 10:10 | NUR ---
PATIENT LAYING IN BED ON BACK. PATEINT IS STABLE AND UNCHANGED. PATIENT REMAINS PLEASANTLY CONFUSED DENIES ANY NEEDS OR PAIN. WILL CONTINUE TO MONITOR. SR UP X 2 BED IN LOW POSITION ADN CALL LIGHT IN REACH.
[2020-02-21 10:14] LABS: ANION GAP 9.8 mmol/L (8-16); CALCIUM 8.4 mg/dL (8.5-10.1); CARBON DIOXIDE 31.3 mmol/L (21.0-32.0); CREATININE - SERUM 4.7 mg/dL (0.6-1.3); PHOSPHOROUS 3.2 mg/dL (2.5-4.9); POTASSIUM - SERUM 3.1 mmol/L (3.5-5.1); VANCOMYCIN - RANDOM 13.9 ug/mL (10.0-20.0)
--- NOTE | 2020-02-21 12:45 | NUR ---
PATIENT CONSUMED 60% OF MEAL.
[2020-02-21 12:47] LABS: BASOPHILS 0.1 % (0-2); HEMOGLOBIN 10.2 g/dL (13.5-17.5); IMMATURE GRANULOCYTES 1.1 % (0-5); LYMPHOCYTES 6.8 % (15-50); MCHC 29.1 g/dL (31.0-37.0); MCV 106.4 fL (80.0-100.0); MONOCYTES 7.1 % (2-11); NEUTROPHILS 83.9 % (40-80); PLATELET COUNT 196 10x3/uL (130-400); RBC 3.29 10x6/uL (4.20-6.10); RDW 16.9 % (11.5-14.5); WBC 9.1 10x3/uL (4.8-10.8)
--- NOTE | 2020-02-21 13:48 | NUR ---
CONTACTED DR. MARTE TO CLARIFY PATIENT'S DIALYSIS ORDERS, WANTS TO HOLD DIALYSIS FOR TODAY DUE TO HYPOTENSION, ALL DIAYSIS ORDERS CANCELLED PER DR MARTE
--- NOTE | 2020-02-21 15:21 | NUR ---
REASSESSMENT COMPLETE, NO CHANGES NOTED, WILL CON'T TO MONITOR
--- NOTE | 2020-02-21 17:45 | NUR ---
PATIENT HAD LARGE SOFT BROWN BM. PATEINT CLEANED , BATHED WITH GOWN AND COMPLETE LINEN CHANGE. PATIENT TOLERATED WELL. STILL REMAINS CONFUSED. VSS. WILL CONTINUE TO MONITOR. SR UP X 2 BED IN LOW POSITION AND CALL LIGHT IN REACH.
--- NOTE | 2020-02-21 18:50 | NUR ---
RECIVED BEDSIDE SHIFT REPORT AT THIS TIME. PT IS ALERT BUT CONFUSED TO TIME, AND SITUATION. HE KNOW HE IS AT A HOSOPITAL BUT CANNOT TELL ME THE NAME. HIS VSS STABLE. FULL ASSESSMENT DONE. RIGHT ARM IS DEEP PURPLE IN COLOR FROM THUMB TO SHOULDER, IT IS WARM TO TOUCH AND HARD. +2 PULSE IS FELT IN THE RIGHT ARM, AND CAP REFILL IS LESS THAN [address] ELIAS IS HERE AT THIS TIME AND I NOTIFIED HER OF FINDINGS. HE PUT IN VQ SCAN ORDER FOR RIGHT ARM AT TIME. PT VOICES"NO" TO ANY PAIN IN THAT RIGHT ARM. ALL OTHER ASESSMENT WILL DOC IN FLOWSHEET. RIGHT IJ IS CDI, NO S/S OF INFILTRATION OR REDNESS. PT IS ANURIC. RESTRAINTS WERE OBSERVED AND WILL DOC IN FLOWSHEET. BED IS LOW,SIDE RAISLX2,CALL LIGHT WITHIN REACH. BED ALARM IS ON. WILL CONTINUE TO MONITOR
--- NOTE | 2020-02-21 19:59 | NUR ---
PT USED CALL LIGHT AND VOICED"IM COLD". VSS. TURNED HIM FOR COMFORT AND PROVIDED HIM WITH WARM BLANKET. HE VOICED"O YEA THAT FEELS GOOD". NO OTHER NEEDS VOICED. BED IS LOW,SIDE RAISLX2,CALL LIGHT WITHIN REACH. BED ALARM IS ON
--- NOTE | 2020-02-21 21:15 | NUR ---
PT BIPAP ALARM IS GOING OFF, UPON ARRING INTO ROOM HE HAS BIPAP MASK OFF FACE. I TRY TO RE-OREINT HIM TO THE REASON HE NEEDS TO KEEP IT ON. HE VOICES"I DONT WANT THAT DAM YULI ON, I WANT TO GET OUT OF HERE". HIS VSS. I AM UNABLE TO ORIENT HIM SUCCESSFULLY. APPLIED BIPAP BACK ON AT THIS TIME. BED IS LEFT LOW,SIDE RAISLX2,CALL LIG WITHIN REACH.
--- NOTE | 2020-02-21 23:00 | NUR ---
RE-ASSESSMENT DONE AT THIS TIME. WILL DOC IN FLOWSHEET. HE IS STILL ALERT BUT CONFUSED. VSS. NO NEEDS VOICED. BED IS LEFT LOW,SIDE RAISLX2,CLL LIGHT WTIHIN REACH. WILL CONITNUE TO MONITOR
[2020-02-22] VITALS (21 sets, daily range): BP systolic 70–143; BP diastolic 48–101
--- NOTE | 2020-02-22 01:00 | NUR ---
PT BIPAP MACHINE IS ONCE AGAIN ALARMING. UPON ARRIVING TO ROOM PT HAS TAKEN BIPAP MASK OFF AGAIN. VSS. GOT ASSIST TO PULL UP IN BED AND REPOSITION. RESTRAINTS ARE OBSERVED. BIPAP MASK WAS PUT BACK ON. BED IS LEFT LOW,SIDE RAISLX2,CALL LIGHT WTIHIN REACH. WILL CONINTUE TO SHEREEN
--- NOTE | 2020-02-22 03:00 | NUR ---
PT IS RESTING IN BED WITH EYES CLOSED. VSS. RE-ASSESSMENT PERFORMED AND WILL DOC IN FLOWSHEET. NO NEEDS VOICED. BED IS LOW,SIDE RAISLX2,CALL LIGHT WITHIN REACH. WILL CONINTUE TO MONITOR
[2020-02-22 04:00] LABS: BASOPHILS 0.1 % (0-2); HEMOGLOBIN 9.4 g/dL (13.5-17.5); IMMATURE GRANULOCYTES 1.5 % (0-5); LYMPHOCYTES 9.3 % (15-50); MCH 31.5 pg (26.0-34.0); MCHC 29.4 g/dL (31.0-37.0); MCV 107.4 fL (80.0-100.0); MONOCYTES 5.2 % (2-11); NEUTROPHILS 82.9 % (40-80); PLATELET COUNT 173 10x3/uL (130-400); RBC 2.98 10x6/uL (4.20-6.10); RDW 17.1 % (11.5-14.5); WBC 8.2 10x3/uL (4.8-10.8)
[2020-02-22 04:19] LABS: ANION GAP 8.1 mmol/L (8-16); CALCIUM 7.6 mg/dL (8.5-10.1); CREATININE - SERUM 5.1 mg/dL (0.6-1.3); POTASSIUM - SERUM 3.1 mmol/L (3.5-5.1); VANCOMYCIN - RANDOM 12.1 ug/mL (10.0-20.0)
--- NOTE | 2020-02-22 04:54 | NUR ---
PT IS RESTING IN BED WATCHING TV. BIPAP IS ON. VSS. NO NEEDS VOICED. BED IS LOW,SIDE RAISLX2,CALL LIGHT WITHIN REACH. WILL CONTINUE TO MONITOR
--- NOTE | 2020-02-22 05:15 | NUR ---
GOT A CALL FROM LAB THAT PT BLOOD SUGAR WAS 476. I RECHECK IT VIA FINGER STICK AND IT WAS 96. PT IS ALERT BUT CONFUSED WHICH IS NO CHANGE. HIS VSS. HE IS CURRENTLY DRINKING HONEY THICK WATER REQUESTED. BED IS LOW,SIDE3 RIALX2,CALL LIGHT WITHIN REACH. WILL CONITNUE TO MONITOR
--- NOTE | 2020-02-22 06:32 | NUR ---
PT IS RESTING IN BED WATCHING TV. VSS. NO NEEDS OR C/O VOICED. IS IN ROOM TALKING WITH PT. BED IS LOW,SIDE RAISLX2,CALL LIGHT WTIHIN REACH. WILL CONINTUE TO MONITOR
--- NOTE | 2020-02-22 10:02 | NUR ---
BLE ARE DISCOLORED. PT HAS HX OF PVD. LEGS ARE HAIRLESS AND COOL TO THE TOUCH. THERE ARE NUMEROUS DRY SCABS ON BLE (INCLUDING TOES). NO DRAINAGE, REDNESS, EDEMA OR ODOR IS NOTED. CONTINUING TO MONITOR.
--- NOTE | 2020-02-22 11:02 | NUR ---
Nutrition follow-up: Pt receiving a renal ADA honey thick liquid diet with po intake ~50% of meals Pt yelling at every one from room. +BM Wt: 220# Labs reviewed Will continue to provide food choices and honor food preferences. Will offer nutritional supplements. RDN following.
--- NOTE | 2020-02-22 17:21 | NUR ---
YELLING FOR NURSE, HAS HAD A BOWEL MOVEMENT, AND TAKEN HIS FECES AND THROWN ALL OVER ROOM FLOOR, BATH AND LINEN CHANGE COMPLETED, REPOSITIONED UP IN BED NO OTHER NEEDS AT THIS TIME
--- NOTE | 2020-02-22 21:42 | NUR ---
1899-PATIENT YELLING. SLID DOWN IN BED. GEODON WITH GIVEN IM. PATIENT URINATED AND SMALL BM NOTED. CHANGED LINEN AND CLEANED UP PATIENT. VERY CONFUSED. PULLED OUT RIGHT IJ PRIOR TO THIS SHIFT. RESTRAINTS INTACT. 1929-PATIENT SLID DOWN IN BED AGAIN. WITH ASSISTANCE PULLED BACK UP IN BED. VERY CONFUSED. UNABLE TO REORIENT. PATIENT C/O NOT BEING ABLE TO BREATHE, PULSE OX AT 96% ON OW HIGH FLOW AT 5L. PLACED BIPAP ON D/T AIR HUNGER. 1939- PATIENT STATES THAT HE FEELS BETTER. BIPAP REMAINS ON PATIENT 2100- TOLERATED MEDS WITH COMPLICATIONS. NO SWALLOWING ISSUES. CRUSHED MEDS. STATES HE NEEDS TO GO TO THE BANK. 2110- SPOKE WITH DR. DE LA CRUZ ABOUT CVL PLACEMENT. STATES HE WILL BE HERE TONIGHT
--- NOTE | 2020-02-22 22:45 | NUR ---
CVL WAS PLACED BY DR. DE LA CRUZ. NEW CVL IN RIGHT SUBCLAVIAN.
[2020-02-23] VITALS (36 sets, daily range): BP systolic 79–152; BP diastolic 33–105
--- NOTE | 2020-02-23 01:46 | NUR ---
2300- REASSESSMENT COMPLETED. CONT TO YELL, "LET ME GO TO THE BANK." ATTEMPTED TO REORIENT SEVERAL TIMES. 0- NO CHANGES. VSS. AWAKE. CONFUSED. REPOSITIONING Q 2 HOURS
--- NOTE | 2020-02-23 03:43 | NUR ---
0300-REASSESSMENT COMPLETED. NO CHANGES SINCE LAST ASSESSMENT. REPOSITIONED.
[2020-02-23 04:02] LABS: BASOPHILS 0.2 % (0-2); EOSINOPHILS 0.7 % (0-7); HEMATOCRIT 32.4 % (42.0-54.0); HEMOGLOBIN 9.8 g/dL (13.5-17.5); IMMATURE GRANULOCYTES 1.6 % (0-5); LYMPHOCYTES 10.4 % (15-50); MCH 31.3 pg (26.0-34.0); MCHC 30.2 g/dL (31.0-37.0); MEAN PLATELET VOLUME 9.6 fL (7.4-10.4); MONOCYTES 6.5 % (2-11); NEUTROPHILS 80.6 % (40-80); PLATELET COUNT 200 10x3/uL (130-400); RBC 3.13 10x6/uL (4.20-6.10); WBC 8.1 10x3/uL (4.8-10.8)
[2020-02-23 04:04] LABS: MCV 103.5 fL (80.0-100.0)
[2020-02-23 04:20] LABS: ANION GAP 8.8 mmol/L (8-16); CALCIUM 8.3 mg/dL (8.5-10.1); CARBON DIOXIDE 31.6 mmol/L (21.0-32.0); POTASSIUM - SERUM 3.4 mmol/L (3.5-5.1); VANCOMYCIN - RANDOM 12.3 ug/mL (10.0-20.0)
--- NOTE | 2020-02-23 06:34 | NUR ---
COMPLETE LINEN CHANGE D/T SOILED LINEN
--- NOTE | 2020-02-23 06:34 | NUR ---
CVL DRESSING CHANGE D/T SOILED. NOT CURRENTLY BLEEDING
--- NOTE | 2020-02-23 17:47 | NUR ---
0700 BEDSODE REPORT RECEIVED FROM OUTGOING RN INTR;ODUCED MYSELF AND PLACED DATE AND NAME ON THE WHITE BOARD ASSESSMENT COMPLETE
--- NOTE | 2020-02-23 17:51 | NUR ---
0900 TOTAL ASSIST WITH MEALS PUREED WITH NECTAR THICK LIQUIDS APPETITE GOOD
--- NOTE | 2020-02-23 17:52 | NUR ---
1100 CT OF CHEST COMPLETE
--- NOTE | 2020-02-23 17:53 | NUR ---
[address] DE LA CRUZ THE BLEEDING ON LLRIGHT SUBCLAVIAN THAT HE PUT IN
--- NOTE | 2020-02-23 17:53 | NUR ---
1300 APPETITE GOOD TOTAL FEED ASSIST
--- NOTE | 2020-02-23 17:54 | NUR ---
1700 CHANGED RIGHT SUB CLAVIAN CENTRAL LINE DRESSING LITTLE DRAINAGE NOTED UNER CLEAR DRESSING
--- NOTE | 2020-02-23 19:00 | NUR ---
ASSESSMENT COMPLETED. SEE FLOW SHEET FOR ALL FINDINGS. PT RESTLESS AND AGITATED IN BED. DIALYSIS STARTED. SBP IN 80S. LEVOPHED STARTED PER ORDER TO KEEP SBP> 90. UNABLE TO REORIENT PT. DIALYSIS NURSE AT BEDSIDE. CONT TO MONITOR.
--- NOTE | 2020-02-23 20:00 | NUR ---
PT AGITATED IN BED DURING DIALYSIS, DR RUDOLPH CALLED AND NOTED, ORDER REC'D.
--- NOTE | 2020-02-23 21:00 | NUR ---
CONT DIALYSIS . PT MORE CALM AND RESTING. VSS.
--- NOTE | 2020-02-23 22:30 | NUR ---
HD DONE. PT RESTING QUIETLY AT THIS TIME. VSS. TITRATE LEVOPHED PER ORDER TO KEEP SBP>90.
--- NOTE | 2020-02-23 23:00 | NUR ---
REASSESSMENT COMPLETED PER FLOWSHEETS. PT RESTING QUIETLY AT THIS TIME. NO ACUTE CHANGES NOTED IN PT'S STATUS. VSS. CONT TITRATE LEVOPHED PER ORDER. CONT TO MONITOR.
[2020-02-24] VITALS (29 sets, daily range): BP systolic 88–130; BP diastolic 42–76
--- NOTE | 2020-02-24 01:00 | NUR ---
PT RESTING QUIETLY WITHOUT DISTRESS AT THIS TIME. VSS. CPOC.
--- NOTE | 2020-02-24 03:00 | NUR ---
REASSESSMENT COMPLETED. NO ACUTE CHANGES NOTED IN PT'S CONDITION. VSS. CPOC.
--- NOTE | 2020-02-24 04:15 | NUR ---
I&O COMPLETED TO CHART.
--- NOTE | 2020-02-24 05:30 | NUR ---
DR ELIAS CALLED FOR UPDATE ON PT'S STATUS. NO ORDERS REC'D.
[2020-02-24 06:05] LABS: BASOPHILS 0.1 % (0-2); EOSINOPHILS 1.2 % (0-7); HEMATOCRIT 32.3 % (42.0-54.0); HEMOGLOBIN 9.5 g/dL (13.5-17.5); IMMATURE GRANULOCYTES 1.4 % (0-5); LYMPHOCYTES 8.3 % (15-50); MCH 30.4 pg (26.0-34.0); MCHC 29.4 g/dL (31.0-37.0); MCV 103.2 fL (80.0-100.0); MEAN PLATELET VOLUME 9.6 fL (7.4-10.4); MONOCYTES 6.3 % (2-11); NEUTROPHILS 82.7 % (40-80); PLATELET COUNT 206 10x3/uL (130-400); RBC 3.13 10x6/uL (4.20-6.10); WBC 7.3 10x3/uL (4.8-10.8)
[2020-02-24 06:29] LABS: ANION GAP 8.5 mmol/L (8-16); CARBON DIOXIDE 31.3 mmol/L (21.0-32.0); CREATININE - SERUM 4.8 mg/dL (0.6-1.3); PHOSPHOROUS 2.6 mg/dL (2.5-4.9); POTASSIUM - SERUM 3.8 mmol/L (3.5-5.1); VANCOMYCIN - RANDOM 20.3 ug/mL (10.0-20.0)
--- NOTE | 2020-02-24 10:41 | NUR ---
Nutrition follow-up: Pt receiving a renal ADA puree with nectar thick liquid diet PO intake has been fair at meals; pt ate ~25% of brekfast this morning Pt continues to be confused per nurse RDN following.
--- NOTE | 2020-02-24 11:58 | NUR ---
0700 BEDSIDE REPORT RECEIVED FROM ARVIN JACQUES RN PRESIDES RESTARTED AT 0.2 MCG/KG/MIN PATIENT ACTING BELLIGERENT AND DISCONNECTING OXYGEN TUBING TO HIS BPAP
--- NOTE | 2020-02-24 12:02 | NUR ---
0900 TOTAL FEED ASSIST WITH BREAKFAST ATE 50%
--- NOTE | 2020-02-24 12:03 | NUR ---
1100 TIRE VULCANIZER ARRIVING WITH DIALYSIS MACHINES
--- NOTE | 2020-02-24 15:11 | NUR ---
1330 DIALLYSIS PULLED OFF 2000ML
--- NOTE | 2020-02-24 15:11 | NUR ---
1500 RESTING QUIETLY WITH EYES CLOSED
--- NOTE | 2020-02-24 20:15 | NUR ---
ASSESSMENT PER FLOW SHEET, VS CONTINUE, TEMP OBTAINED, SALINE LOCK IN LEFT FA INTACT, WRAPPED, PT INQUIRES ABOUT MEDS, INFORMED PT THAT I WILL ADM THEM AT 9PM, PT VERBALIZES UNDERSTANDING, FOSTER CATH INTACT DRAINING DARK YELLOW URINE, DENIES FLATUS OR BM, PT DENIES NEEDS AT THIS TIME, BED IN LOW POSITION, SIDE RAILS X 2, CALL LIGHT IN REACH
--- NOTE | 2020-02-24 21:41 | NUR ---
PT AWAKE, ADM MEDS IN APPLESAUCE, PT ELÍAS WELL, NS HUNG PER MD ORDERS TO KVO, SEE EMAR, PT DENIES PAIN AT THIS TIME, WARM BLANKET PROVIDED, ENC PT TO GET SOME REST, PT CONTINUES IN SOFT WRIST RESTRAINTS, REMOVED FOR OBSERVATION OF SKIN, SKIN INTACT, RESTRAINTS REPLACED, PT ATE 100% OF APPLESAUCE, DENIES FURTHER NEEDS, FALL PRECAUTIONS IN PLACE
--- NOTE | 2020-02-24 22:28 | NUR ---
PT KARLENE, THIS RN TO ROOM, REPORTS HE NEEDS HIS BACK SCRATCHED, THIS RN RUBBED THE AREA TO THE LEFT SIDE OF BACK PER HIS REQUEST, PT STATES "THAT FEELS SO MUCH BETTER, PT ENC TO CLOSE HIS EYES TO GET SOME REST, PT STATES "I WILL DO MY BEST"
--- NOTE | 2020-02-24 23:30 | NUR ---
SHIFT REASSESSMENT PER FLOW SHEET
[2020-02-25] VITALS (25 sets, daily range): BP systolic 98–146; BP diastolic 31–86
--- NOTE | 2020-02-25 01:03 | NUR ---
PT HOLLERING OUT, DOESN'T WANT THE CPAP ON, EXPLAINED TO PT THAT IT WAS NECESSARY, PT VERBALIZES UNDERSTANDING, BUT IS AGITATED BECAUSE OF IT
--- NOTE | 2020-02-25 02:12 | NUR ---
KENDALL, RN TO ROOM, EXPLAINS TO PT THAT HE NEEDS TO KEEP CPAP ON
--- NOTE | 2020-02-25 03:21 | NUR ---
PT AWAKE, CPAP ON IT THIS TIME, BED IN LOW POSITION, SIDE RAILS X 2, CALL LIGHT IN REACH
--- NOTE | 2020-02-25 05:54 | NUR ---
THIS RN AND DELISA ARGUETA CLEANED PT UP WITH WET WARM WIPES, PT INCONTINENT WITH SMALL AMOUNT OF URINE, PINK PAD AND WHITE CHUX CHANGED, YELLOW GOWN PLACED ON PT, PT REPOSITIONED IN BED, RESTRAINTS BACK ON PER DELISA ARGUETA, ADM PROTONIX PO IN APPLESAUCE, PT ELÍAS WELL, BED IN LOW POSITION, SIDE RAILS X 2, CALL LIGHT IN REACH
[2020-02-25 06:39] LABS: HEMOGLOBIN 10.2 g/dL (13.5-17.5); LYMPHOCYTES 13.9 % (15-50); MCH 32.1 pg (26.0-34.0); MCHC 30.9 g/dL (31.0-37.0); MCV 103.8 fL (80.0-100.0); MEAN PLATELET VOLUME 9.4 fL (7.4-10.4); PLATELET COUNT 223 10x3/uL (130-400); RBC 3.18 10x6/uL (4.20-6.10); RDW 16.7 % (11.5-14.5); WBC 7.6 10x3/uL (4.8-10.8)
[2020-02-25 06:49] LABS: ANION GAP 9.9 mmol/L (8-16); CALCIUM 8.2 mg/dL (8.5-10.1); CARBON DIOXIDE 31.4 mmol/L (21.0-32.0); CREATININE - SERUM 4.3 mg/dL (0.6-1.3); POTASSIUM - SERUM 3.3 mmol/L (3.5-5.1)
[2020-02-25 06:50] LABS: PHOSPHOROUS 1.9 mg/dL (2.5-4.9)
--- NOTE | 2020-02-25 07:00 | NUR ---
patient voided dark dark urine. mod amount. patient knows he voided. confused talks but does not make sense. will help turn self when encouraged. right subclavian central line infusing with ns at 5 ml hour to keep vein open. left arm fistula. restrainted to protect lines. head of bed elevated. monitor atrial fib with freq pvc's. oxygen at 5 liters per nc.
--- NOTE | 2020-02-25 08:30 | NUR ---
feed pureed breakfast ate well. did pocket some biscuit and gravy, coughed once during meal. ate 75% of diet. talked during the entire meal
--- NOTE | 2020-02-25 10:30 | NUR ---
voided dark brown urine. repositioned . kick ing legs off bed. wants to go home. assist with turning self. buttock red. moisture barrier applied.
--- NOTE | 2020-02-25 11:57 | NUR ---
[facility] CONSULTS FAXED TO [facility] AT THIS TIME.
--- NOTE | 2020-02-25 12:00 | NUR ---
dialysis here. ate some apple sauce and carton of milk. tolerated well. talkative. calling out of help continously. napping at intervals
--- NOTE | 2020-02-25 13:35 | NUR ---
tolerating dialysis fair.
--- NOTE | 2020-02-25 15:00 | NUR ---
patient states he is short of breath bipap applied. pulse up to 98% on 40%. was 93%. dialysis continues with 2 liters removed so far
--- NOTE | 2020-02-25 16:30 | NUR ---
dialysis complete patient tolerated well 4 liters removed. patient more aggitated. fighting with dialysis nurse. patient not cooperative.
--- NOTE | 2020-02-25 19:55 | NUR ---
REC'D REPORT FROM OFF-GOING NURSE. LYING IN BED, HOLLERING OUT MONOSYLLABLES BUT WHEN ASKED UNABLE TO VERBALIZE WHERE IT IS UNDERSTANDABLE WHAT HE NEEDS. LUNGS RELATIVELY CLEAR, VERY AUDIBLE MURMUR AUSCULTATED. SHOWING UCAF WITH PVCs ON MONITOR. DENIES DISCOMFORT. R IJ PATENT, ALL LINES SALINE LOCKED, SITE CLEAR OF REDNESS OR EDEMA. L ARM FISTULA WITH POSITIVE BRUIT/THRILL. R LOWER ARM EDEMATOUS, BRUISED, ELEVATED ON PILLOW TO ASSIST IN REDUCING SWELLING. PP WEAK UPPER, LOWER EXT DOPPLERED. DENIES NEEDS WILL CONT TO MONITOR.
--- NOTE | 2020-02-25 22:15 | NUR ---
GIVEN PM MEDS IN APPLESAUCE, FED HIM ALL THE APPLESAUCE. RESP WILL PLACE ON BIPAP FOR THE NIGHT IN ABOUT 15 MINUTES. WILL CONT TO MONITOR.
[2020-02-26] VITALS (24 sets, daily range): BP systolic 68–144; BP diastolic 38–85
--- NOTE | 2020-02-26 00:10 | NUR ---
LYING QUIETLY, EYES CLOSED AND RESP EVER PER BIPAP. O2 SATS 100%. CONT TO LIE QUIETLY, EYES CLOSED RESP EVEN UNLABORED. WILL CONT TO MONITOR.
[2020-02-26 04:38] LABS: HEMATOCRIT 32.4 % (42.0-54.0); HEMOGLOBIN 9.9 g/dL (13.5-17.5); LYMPHOCYTES 15.9 % (15-50); MCH 31.7 pg (26.0-34.0); MCHC 30.6 g/dL (31.0-37.0); MCV 103.8 fL (80.0-100.0); MEAN PLATELET VOLUME 9.2 fL (7.4-10.4); PLATELET COUNT 215 10x3/uL (130-400); RBC 3.12 10x6/uL (4.20-6.10); RDW 16.6 % (11.5-14.5); WBC 7.6 10x3/uL (4.8-10.8)
[2020-02-26 04:45] LABS: ANION GAP 10.7 mmol/L (8-16); CALCIUM 8.1 mg/dL (8.5-10.1); CARBON DIOXIDE 31.7 mmol/L (21.0-32.0); POTASSIUM - SERUM 3.4 mmol/L (3.5-5.1)
--- NOTE | 2020-02-26 08:30 | NUR ---
RIGHT SUBCLAVIAN CATH REMOVED. NO BLEEDING FROM SIDE, NO BRUSING NOTED. RIGHT NECK AND SURROUNDING SITE IS BRUSIED. TEGRADERM APPLIED OVER FOLDED 4X4. PATIENT THREATENING NURSE THE ENTIRE TIME, MAKING A FIST AT THE NURSE, NEVER DID HE SWING. RESTRAINTS REMOVED. BREAKFAST TRAY SERVED. FEED A FEW BITES ENCOURAGE PATIENT TO FEED SELF.
--- NOTE | 2020-02-26 10:02 | NUR ---
PHYSICAL THERAPY HERE
--- NOTE | 2020-02-26 12:00 | NUR ---
FEED A FEW BITES OF LUNCH, WAVED HIS HAND, WOULD NOT EAT ANY MORE.
--- NOTE | 2020-02-26 14:25 | NUR ---
PATIENT RESTING COMFORTABLY WITHOUT DISTRESS. RESP DEEP AND REGULAR.
--- NOTE | 2020-02-26 16:30 | NUR ---
FEED PUREED SUPER TRAY. ATE MOST OF FOOD. MINIMAL COUGHING NOTED. SLEPT MOST OF THE DAY.
--- NOTE | 2020-02-26 17:30 | NUR ---
HIBCLENS BATH GIVEN WITH LINEN CHANGE. NO SKIN BREAKDOWN NOTED. VOIDED DARK BROWN URINE. PATIENT ASSIST WITH TURNING SELF. FAIRLY COOPERATIVE
--- NOTE | 2020-02-26 19:30 | NUR ---
PT AROUSES TO STIMULI, LUNGS CLEAR, O2 @ 1L VIA N/C, LEFT AV FISTULE WITH BRUIT PRESENT, NO DISTRESS NOTED
[2020-02-27] VITALS (20 sets, daily range): BP systolic 76–129; BP diastolic 43–77
--- NOTE | 2020-02-27 00:58 | NUR ---
PT SLEEPING WITH NO DISTRESS NOTED, VITALS STABLE
--- NOTE | 2020-02-27 04:15 | NUR ---
PT AWAKE, CONFUSED, YELLS OUT AT TIMES, NO DISTRESS NOTED
--- NOTE | 2020-02-27 11:09 | NUR ---
Nutrition follow-up: Pt very confused and yelling out this am. Diet: Renal ADA puree with honey thick liquids PO intake 75, 25, 75% of meals 02/25 Labs reviewed Wt: 200# +BM RDN following.
--- NOTE | 2020-02-27 11:45 | NUR ---
O2 DECREASED TO 2 L/M BY RT. INCONTINENCE CARE. LINEN AND GOWN CHANGE.
--- NOTE | 2020-02-27 12:30 | NUR ---
FEED LUNCH AND BREAKFAST TODAY. 25% OF FOOD. NECTAR THICK LIQUIDS THROUGHOUT DAY.
[2020-02-27 17:39] LABS: HEMATOCRIT 28.8 % (42.0-54.0); LYMPHOCYTES 16.4 % (15-50); MCHC 31.3 g/dL (31.0-37.0); MCV 102.5 fL (80.0-100.0); MEAN PLATELET VOLUME 9.4 fL (7.4-10.4); NEUTROPHILS 76.3 % (40-80); PLATELET COUNT 214 10x3/uL (130-400); RBC 2.81 10x6/uL (4.20-6.10); RDW 16.9 % (11.5-14.5); WBC 6.7 10x3/uL (4.8-10.8)
[2020-02-27 18:25] LABS: ANION GAP 8.6 mmol/L (8-16); CALCIUM 8.2 mg/dL (8.5-10.1); CARBON DIOXIDE 31.6 mmol/L (21.0-32.0); CREATININE - SERUM 4.7 mg/dL (0.6-1.3); PHOSPHOROUS 1.9 mg/dL (2.5-4.9); POTASSIUM - SERUM 3.2 mmol/L (3.5-5.1)
--- NOTE | 2020-02-27 19:30 | NUR ---
PT AWAKE, CONFUSED, BILAT SWR IN USE, O2 @ 2L VIA N/C, LEFT ARM AV FISTULA WITH BRUIT PRESENT, VITALS STABLE, WILL CONT TO MONITOR
--- NOTE | 2020-02-27 19:53 | NUR ---
SET UP MACHINES IN PT ROOM AND SPOKE TO PT WHO WAS FAIRLY PLEASANT. ACCESSED L AVF TO START TX. PT STARTED TO STATE THAT HE WASN'T WANTING TO CONTINUE WITH DIALYSIS. I ASKED HIM IF HE UNDERSTOOD WHAT WOULD HAPPEN IF HE STOPPED TX AND HE SAID THAT HE WOULD . DISCUSSED SPEAKING WITH DR ELIAS ABOUT THIS IN THE MORNING, SO SHE COULD SPEAK WITH HIS DAUGHTER AND MAKE ARRANGMENTS. PT WAS FINE WITH THAT. THEN HE SAID HE WANTED TO SPEAK TO HIS EX . I TOLD PT THAT I DIDN'T HAVE A NUMBER TO CONTACT HER AND NO PHONE IN THE ROOM. I LET HIM KNOW THAT I WOULD SPEAK TO HIS PRIMARY NURSE AND LET HER KNOW. PT AT THIS TIME STARTED TO GET BELLIGERANT AND CALLING ME A DUMB ASS, AND A BITCH, WHICH I INFORMED HIM THAT THAT LANGUAGE WASN'T APPROPRIATE OR APPRECIATED. PT PROCEDED TO START PULLING ON DIALYSIS LINE IF HE WAS TRYING TO PULL NEEDLES OUT AND WRAPPING THEM AROUND HIS HANDS AN PULLING THEM TO BREAK THE LINES. CALLED PRIMARY NURSE Fermin HARDING RN AND SHE GOT SOFT RESTRANTS THAT WE PUT ON PT. TEXTED DR ELIAS AND INFORMED HER OF WHAT WAS HAPPENING WITH PT. SHE TOLD ME TO STOP TX AND SHE WOULD SPEAK TO PT IN AM.
[2020-02-28] VITALS (24 sets, daily range): BP systolic 72–139; BP diastolic 39–76
--- NOTE | 2020-02-28 04:00 | NUR ---
PT BATHED, COOPERATIVE WITH CARE, NO DISTRESS NOTED
[2020-02-28 08:09] LABS: HEMATOCRIT 30.1 % (42.0-54.0); HEMOGLOBIN 9.2 g/dL (13.5-17.5); LYMPHOCYTES 14.3 % (15-50); MCH 31.5 pg (26.0-34.0); MCHC 30.6 g/dL (31.0-37.0); MCV 103.1 fL (80.0-100.0); MEAN PLATELET VOLUME 9.6 fL (7.4-10.4); NEUTROPHILS 74.8 % (40-80); PLATELET COUNT 225 10x3/uL (130-400); RBC 2.92 10x6/uL (4.20-6.10); RDW 16.9 % (11.5-14.5)
[2020-02-28 08:11] LABS: WBC 8.9 10x3/uL (4.8-10.8)
[2020-02-28 08:34] LABS: ANION GAP 12.7 mmol/L (8-16); CALCIUM 8.8 mg/dL (8.5-10.1); CARBON DIOXIDE 29.2 mmol/L (21.0-32.0); CREATININE - SERUM 4.5 mg/dL (0.6-1.3)
[2020-02-28 08:40] LABS: POTASSIUM - SERUM 3.9 mmol/L (3.5-5.1)
--- NOTE | 2020-02-28 11:15 | NUR ---
REPORT RECEIVED FROM OUTGOING NURSE. PATIENT LAYING IN BED ON BACK WITH HOB ELEVATED 30 DEGREES. PATIENT AROUSES TO VOICE EASILY. PATIENT ORIENTED TO NAME ONLY. O2 NC @ 3 LITERS. PATIENT IS UNRESTRAINED AND RESTING QUIETLY. WILL CONTINUE TO MONITOR. SR UPX 2 BED IN LOW POSITION AND CALL LIGHT IN IN REACH. REASSESMENT COMPLETED.
--- NOTE | 2020-02-28 12:00 | NUR ---
DR CHILDRESS IN ROOM. NO NEW ORDERS RECEIVED. CM IS WORKING ON SNF PLACEMENT. PATIENT CONSUMED 50% OF MEAL. PATIENT IS STABLE AND VSS.SR UPX 2 BED IN LOW POSITION AND CALL LIGHT IN REACH.
--- NOTE | 2020-02-28 15:03 | NUR ---
PATIENT REPOSITIONED TO RT SIDE. PATIENT IS STABLE AND UNCHANGED. VSS. WILL CONTINUE TO MONITOR. SR UP X 2 BED IN LOW POSITION AND CALL LIGHT IN REACH.
--- NOTE | 2020-02-28 15:08 | CN ---
PATIENT NAME:JAVI MORELOS MEDICAL RECORD: [id number] : 43 LOCATION:[id number] ADMIT DATE: 02/06/20 ACCOUNT: [id number] CONSULTING PHYSICIAN: TEDDY DOBBS MD REFERRING PHYSICIAN: MARILUZ RUBY MD DATE OF CONSULTATION: 02/27/2020 IDENTIFYING DATA: The patient is 74 years old and he was admitted to the hospital in late January secondary to an ischemic leg and renal failure. CHIEF COMPLAINT: Confusion. HISTORY OF PRESENT ILLNESS: The patient is somewhat dysarthric, but is very verbal. He is talking to me, but is not making much sense. The dialysis nurse is with him. She says he was aggressive on Thursday when she did dialysis, but she has had no problem with him today. He is not in restraints. He is not receiving or requiring significant redirection. ASSESSMENT: 1. Vascular dementia. 2. Delirium. PLAN: The patient is not displaying symptoms that require inpatient psychiatric care at this time. Furthermore, he is terribly frail and probably unable to participate in any activities in the day room. I agree with the use of the Zoloft and in addition to this, the Risperdal is appropriate, but I am going to reduce the dose slightly. He clearly is going to require 61-klcy-j-day supervision. At this point, I do not think he is appropriate for inpatient psychiatric care and would recommend that he be transferred to a [facility]. TRANSINT:[id number] Voice Confirmation ID: [id number] DOCUMENT ID: [id number] TEDDY DOBBS MD at 1508 CC: [id number] DICTATION DATE: 02/27/201652 REGISTERED SAFETY ENGINEER: 02/28/20 0000 ADM IN [facility] [address] [place] [address]
--- NOTE | 2020-02-28 16:30 | NUR ---
PATIENT BP 84/37 RESP 22 MAP 47 O2 SAT 80%. PATIENT PLACED IN [place] CALLED RESPIRATORY . PATIENT PLACED ON BIPAP. PATIENT BP INCREASED 96/56 02 SAT 99% RESP 20 MAP IS 65[address] DR ELIAS. INFORMED DR OF CURRENT PATIENT VITALS. DISCUSSED THAT DR ELIAS HAD WRITTEN NOTE THAT DIALYSIS IS NO LONGER AVAILABLE DUE TO PATIENT BEING VOLITAL WITH STAFF DURING DIALYSIS. DR HAMM STATES THAT TRYING TO DILALYSIZE PATIENT IS DANGEROUS FOR PATIENT AND STAFF . PATIENT IS A FULL CODE. DR ELIAS REQUESTED THAT I CALL DAUGHTER LEXY AND LET HER KNOW OF PATIENT CONDITION AND STATUS OF DIALYSIS AND LET DTR KNOW THAT DR WILL CALL HER IN THE MORNING. CALLED PATIENT DTR AND GAVE HER UPDATE REGARDING DIALYSIS WILL NOT BE CONTINUED AT THIS TIME AND THAT DR ELIAS WILL CALL HER IN THE AM. PER , ALSO DISCUSSED THAT PATIENT IS A FULL CODE AND TAHT FAMILY NEEDS DISCUSS THIER WISHES IN THE EVENT THAT PATIENT DOES CODE. LEXY DID STATE THAT THE FAMILY DOES NOT WANT PATIENT ON VENTILATOR OR LIFE SUPPORT. PER INA, RN INFORMED PATIENT THAT SINCE IS UNABLE TO STATE HIS WISHES THE NEXT OF KIN WILL NEED TO MAKE DECISION. DTR STATED THAT SHE WILL DISCUSS WITH HER OLDER BROTHER , WHO IS NEXT OF KIN, ANE FAMILY WILL CALL BACK TO ICU WITH DECISION. WILL CONTINUE TO MONITOR PATIENT. SR UP X 2 BED IN LOW POSITION AND CALL LIGHT IN REACH.
--- NOTE | 2020-02-28 18:09 | NUR ---
PATIENT CONTINUES TO HAVE BIPAP IN PLACE. BP 110/46 HR 89 MAP 70 O2 SAT 99%. WILL CONTINUE TO MONITOR. SR UP X 2 BED IN LOW POSITION AND CALL LIGHT IN REACH.
--- NOTE | 2020-02-28 19:00 | NUR ---
PT CONFUSED, LETHARGIC, BIPAP IN USE, LEFT AV FISTULA WITH BRUIT PRESENT, INC OF URINE, CLEANED PER STAFF, OPENS EYES BRIEFLY TO STIMULI, WILL CONT TO MONITOR
--- NOTE | 2020-02-28 21:12 | MORECARE ---
CASE MANAGEMENT DISCHARGE SUMMARY PATIENT: JAVI MORELOS UNIT: [id number] ADM DATE: 02/06/20 AGE: 74 : 44 SEX: M ROOM/BED: D.2303 AUTHOR: PATRIZIA,DOC PHYSICIAN: REFERRING PHYSICIAN: MARILUZ RUBY MD DATE OF SERVICE: 02/28/20 Discharge Plan Patient Name: JAVI MORELOS Facility: [facility]:[place] : 1945 Planned Disposition: Anticipated Discharge Date: Discharge Date: Expected LOS: Initial Reviewer: [email or web address] Initial Review Date: 02/06/2020 Generated: 02/28/20 10:11 pm DCP- Discharge Planning Updated by [email or web address]: Shivani Francisco on 02/16/20 5:[address] LATE ENTRY CM SPOKE WITH PATIENT'S DAUGHTER, ANNITA THIS EARLY AM. SHE CONFIRMED THE REFERRAL TO [facility] [place] FOR EVALUATION. CLINICAL FAXED TO JULIA FOR REVIEW. CM REC TELEPHONE CALL FROM JULIA Pollock/ [facility]. THEY ARE NOT ACCEPTING ANY DIALYSIS PATIENTS SECONDARY TO COVID 19 ISSUE. JULIA STATES SHE WILL TELL THE PATIENT'S DAUGHTER. DCP- Discharge Planning Updated by [id number]: Shivani Francisco on 02/15/20 3:[address] CM RECEIVED A TELEPHONE CALL FROM JULIA Pollock/ [facility]. SHE STATES THE PATIENT'S DAUGHTER, ANNITA, CALLED AND ASK FOR AN EVALUATION. CLINICAL TO BE FAXED TO [phone]. CM ADVISED THE PATIENT IS IN ICU AT THE PRESENT. WILL VERIFY REQUEST W/ THE DAUGHTER. DCP- Discharge Planning Updated by [email or web address]: Louise Perez on 02/14/20 6:[address] Patient Name: JAVI MORELOS Admission Status: ER Accout number: [id number] Admission Date: 02-06-2020 : 1945 Admission Diagnosis:CELLULITIS OF LEFT LOWER LIMB Attending: MARILUZ RUBY Current LOS: 8 Anticipated DC Date: Planned Disposition: Primary Insurance: MEDICARE A & B Discharge Planning Comments: CM called and spoke with patient's daughter Annita [phone] to complete initial dc planning assessment. CM educated patient on the CM role and verbal consent given by patient to complete assessment. Annita stated that her father is estranged most her life. She stated that he had been living in [facility] for 3-4 yrs but within the last year he had signed himself out and is now living in a camper alone. Patient is independent. He drives himself to dialysis in [facility]. Uncertain as to what his discharge needs or disposition. Annita stated that they will get together as a family and make a decision. She stated that she is one of eight children. CM discussed availability of home health, rehab services, and medical equipment. Patient will have family to transport home. Patient denied known discharge needs at this time. CM will continue to follow and will assist as needed with dc plans/needs. Wallpaperer Helper: Louise Perez DCPIA - Discharge Planning Initial Assessment Updated by [id number]: Louise Perez on 02/14/20 7:21 pm * Is the patient Alert and Oriented? No * How many steps to enter\exit or inside your home? * PCP [facility] * Pharmacy [facility] * Preadmission Environment Home Alone * ADLs Independent * Equipment None * List name and contact numbers for known caregivers / representatives who currently or will assist patient after discharge: ANNITA NIEVES - DAUGHTER- [phone] MARIA A MORELOS - BROTHER - [phone] * Verbal permission to speak to the caregivers and representatives has been obtained from the patient. N/A * Community resources currently utilized None * Additional services required to return to the preadmission environment? No * Can the patient safely return to the preadmission environment? Yes * Has this patient been hospitalized within the prior 30 days at any hospital? No Last DP export: 02/16/20 5:24 pm Patient Name: JAVI MORELOS Page 54092 at 2112 All edits/amendments must be made on the electronic document DICTATION DATE: 02/28/202110 LOSS MITIGATION SPECIALIST: ZULMA 02/28/202110 RPT#: [id number] DC DATE: STATUS: ADM IN [facility] [address] [place] [address] END OF REPORT
--- NOTE | 2020-02-28 21:30 | NUR ---
PT VERY LETHARGIC, O2 INCREASED TO 65%, UNABLE TO AROUSE TO TAKE PO MEDS
--- NOTE | 2020-02-28 21:37 | MORECARE ---
CASE MANAGEMENT DISCHARGE SUMMARY PATIENT: JAVI MORELOS UNIT: [id number] ADM DATE: 02/06/20 AGE: 74 : 44 SEX: M ROOM/BED: D.2303 AUTHOR: PATRIZIA,DOC PHYSICIAN: REFERRING PHYSICIAN: MARILUZ RUBY MD DATE OF SERVICE: 02/28/20 Discharge Plan Patient Name: JAVI MORELOS Facility: [facility]:[place] : 1945 Planned Disposition: Anticipated Discharge Date: Discharge Date: Expected LOS: Initial Reviewer: [email or web address] Initial Review Date: 02/06/2020 Generated: 02/28/20 10:36 pm Comments DCP- Discharge Planning Updated by [email or web address]: Louise Perez on 02/28/20 8:[address] CM spoke with daughter Angela this am. [facility] signed for any SNF / LTC facility that will accept him. CM reached out to [place] with [facility] to see about placement and getting patient to dialysis in [place] if possible. Kennedy stated that [facility] in [place] has availability. When CM started to upload records for referral CM realized that Dr. Conti had stated that patient was combative and unsafe to dialyze. Dr. Duncan states that patient isn't appropriate for inpatient psych. CM spoke with CM supervisor enrobing as to what options are left for patient because a SNF will not accept in this condition. CM advised to ask MD if Hospice is an appropriate setting. CM contacted Emi Roberts APN application tester and she stated that Dr. Conti was thinking Hospice because she doesn't plan on dialyzing him d/t his mental status. Emi stated that Dr. Espinosa is application tester now and he could possibly call the family tomorrow and speak to them about Hospice. CM will continue to follow and assist as needed with discharge planning / needs. DCP- Discharge Planning Updated by [email or web address]: Shivani Francisco on 02/16/20 5:[address] LATE ENTRY CM SPOKE WITH PATIENT'S DAUGHTER, ANNITA THIS EARLY AM. SHE CONFIRMED THE REFERRAL TO [facility] FOR EVALUATION. CLINICAL FAXED TO JULIA FOR REVIEW. CM REC TELEPHONE CALL FROM JULIA Pollock/ [facility]. THEY ARE NOT ACCEPTING ANY DIALYSIS PATIENTS SECONDARY TO COVID 19 ISSUE. JULIA STATES SHE WILL TELL THE PATIENT'S DAUGHTER. DCP- Discharge Planning Updated by [email or web address]: Shivani Francisco on 02/15/20 3:[address] CM RECEIVED A TELEPHONE CALL FROM JULIA Pollock/ [facility]. SHE STATES THE PATIENT'S DAUGHTER, ANNITA, CALLED AND ASK FOR AN EVALUATION. CLINICAL TO BE FAXED TO [phone]. CM ADVISED THE PATIENT IS IN ICU AT THE PRESENT. WILL VERIFY REQUEST W/ THE DAUGHTER. DCP- Discharge Planning Updated by [email or web address]: Louise Perez on 02/14/20 6:[address] Patient Name: JAVI MORELOS Admission Status: ER Accout number: [id number] Admission Date: 02-06-2020 : 1945 Admission Diagnosis:CELLULITIS OF LEFT LOWER LIMB Attending: MARILUZ RUBY Current LOS: 8 Anticipated DC Date: Planned Disposition: Primary Insurance: MEDICARE A & B Discharge Planning Comments: CM called and spoke with patient's daughter Annita [phone] to complete initial dc planning assessment. CM educated patient on the CM role and verbal consent given by patient to complete assessment. Annita stated that her father is estranged most her life. She stated that he had been living in [facility] for 3-4 yrs but within the last year he had signed himself out and is now living in a camper alone. Patient is independent. He drives himself to dialysis in [facility]. Uncertain as to what his discharge needs or disposition. Annita stated that they will get together as a family and make a decision. She stated that she is one of eight children. CM discussed availability of home health, rehab services, and medical equipment. Patient will have family to transport home. Patient denied known discharge needs at this time. CM will continue to follow and will assist as needed with dc plans/needs. Experimental Mechanic Electrical: Louise Perez DCPIA - Discharge Planning Initial Assessment Updated by [id number]: Louise Perez on 02/14/20 7:21 pm * Is the patient Alert and Oriented? No * How many steps to enter\exit or inside your home? * PCP [facility] * Pharmacy [facility] * Preadmission Environment Home Alone * ADLs Independent * Equipment None * List name and contact numbers for known caregivers / representatives who currently or will assist patient after discharge: ANNITA NIEVES - DAUGHTER- [phone] MARIA A MORELOS - BROTHER - [phone] * Verbal permission to speak to the caregivers and representatives has been obtained from the patient. N/A * Community resources currently utilized None * Additional services required to return to the preadmission environment? No * Can the patient safely return to the preadmission environment? Yes * Has this patient been hospitalized within the prior 30 days at any hospital? No Last DP export: 02/28/20 8:12 p Patient Name: JAVI MORELOS Page [id number] at 2137 All edits/amendments must be made on the electronic document DICTATION DATE: 02/28/202135 REGRINDER OPERATOR: ZULMA 02/28/202135 RPT#: [id number] DC DATE: STATUS: ADM IN [facility] [address] [place] [address] END OF REPORT
[2020-02-29] VITALS (8 sets, daily range): BP systolic 88–132; BP diastolic 45–66
--- NOTE | 2020-02-29 | NUR ---
PT PULLING OFF BIPAP, WILL NOT FOLLOW DIRECTIONS, PLACED IN SWR, FIO2 @ 100%, WILL CONT TO MONITOR
--- NOTE | 2020-02-29 03:00 | NUR ---
CARE TAKEN OVER BY THIS NURSE. PT IS IN BED WITH THE BIPAP AT 100%. HE IS IN RESTRAINTS. HE HAS AN AV FISTULS AND THRILL IS FELT. PT SEEMS TO BE RESTING WELL WITH HIS EYES CLOSED.
--- NOTE | 2020-02-29 05:44 | NUR ---
BLOOD SUGAR 152 NO INSULIN GIVEN. HIS IS AT THE BEDSIDE. PT HAS NO C/P OR NEEDS EXCEPT HE REALLY WANTS ICE WATER... HE UNDERSTANDS WHY HE CAN'T HAVE IT.
--- NOTE | 2020-02-29 07:10 | NUR ---
REPORT RECEIEVED FROM OFF GOING NURSE. PATIENT LAYING IN BED ON BACK WITH EYES CLOSED AND BREATHING EVENLY. BIPAP IN PLACE. VSS. WILL CONTINUE WITH PLAN OF CARE. SR UP X 2 BED IN LOW POSITION AND CALL LIGHT IN REACH.
[2020-02-29 07:25] LABS: HEMATOCRIT 29.8 % (42.0-54.0); HEMOGLOBIN 9.2 g/dL (13.5-17.5); LYMPHOCYTES 14.9 % (15-50); MCH 32.1 pg (26.0-34.0); MCHC 30.9 g/dL (31.0-37.0); MCV 103.8 fL (80.0-100.0); MEAN PLATELET VOLUME 9.6 fL (7.4-10.4); NEUTROPHILS 74.4 % (40-80); PLATELET COUNT 252 10x3/uL (130-400); RBC 2.87 10x6/uL (4.20-6.10); RDW 16.8 % (11.5-14.5); WBC 9.1 10x3/uL (4.8-10.8)
[2020-02-29 07:31] LABS: ANION GAP 14.3 mmol/L (8-16); CALCIUM 8.9 mg/dL (8.5-10.1); CARBON DIOXIDE 27.8 mmol/L (21.0-32.0); CREATININE - SERUM 5.4 mg/dL (0.6-1.3); POTASSIUM - SERUM 4.1 mmol/L (3.5-5.1)
--- NOTE | 2020-02-29 08:00 | NUR ---
PER WRITTEN NOTE DR ELIAS PATIENT IS NOT A CANDIDATE TO CONTINUE DIALYSI DUE TO BEHAVERIOL ISSUES. CONTACTED PT DTR LEXY TO DISCUSS DNR AND HOSPICE. BROTHER GIANLUCA MORELOS CALLED BACK AND GAVE VERGBAL PERMISSION FOR DNR AND HOSPICE CARE. PAPERWORK COMPLETED. PER CM PLACEMENT FOR HOSPICE HAS BEEN SUBMITTED. WILL CONTINUE TO MONITOR. SR UP X 2 BED IN LOW POSITION AND CALL LIGHT IN REACH.
--- NOTE | 2020-02-29 09:30 | NUR ---
PATIENT CONSUMED 25% OF BREAKFAST. PATIENT REPOSITIONED FOR COMFORT TO LEFT SIDE. VSS. WILL CONTINUE TO MONITOR. SR UP X 2 BED IN LOW POSITON AND CALL LIGHT IN REACH.
--- NOTE | 2020-02-29 10:50 | NUR ---
Nutrition follow-up: Pt has been confused, combative per nurse Diet: Renal ADA puree with nectar thick liquids PO intake ~25% of meals Labs reviewed BIPAP at times Wt: 196# RDN following.
--- NOTE | 2020-02-29 13:30 | NUR ---
PATIENT REPOSITIONED FOR COMFORT TO BACK. VSS. WILL CONTINUE TO MONITOR . SR UPX 2 BED IN LOW POSTION AND CALL LIGHT IN REACH.
--- NOTE | 2020-02-29 14:30 | NUR ---
DTR AT BS.
--- NOTE | 2020-02-29 17:15 | NUR ---
PATIENT CONSUMED 60% OF SUPPER. PATIENT IS CALM AND PLEASANT. PATIENT REFUSED BATH AND SHAVE. LEE CARE PERFORMED PARTIAL LINEN CHANGE COMPLETED. WRIST RESTRAINTS DCD. VSS. NC IN PLACE WITH 02 INFUSING AT 3L. PATIENT WATCHING TV DENIES ANY NEEDS OR PAIN. WILL CONTINUE TO MONITOR. SR UPX 2 BED IN LOW POSITION AND CALL LIGHT IN REACH.
--- NOTE | 2020-02-29 19:00 | MORECARE ---
CASE MANAGEMENT DISCHARGE SUMMARY PATIENT: JAVI MORELOS UNIT: [id number] ADM DATE: 02/06/20 AGE: 74 : 44 SEX: M ROOM/BED: D.2303 AUTHOR: PATRIZIA,DOC PHYSICIAN: REFERRING PHYSICIAN: MARILUZ RUBY MD DATE OF SERVICE: 02/29/20 Discharge Plan Patient Name: JAVI MORELOS [facility] [facility] 1945 Planned Disposition: Anticipated Discharge Date: Discharge Date: Expected LOS: Initial Reviewer: [email or web address] Initial Review Date: 02/06/2020 Generated: 02/29/20 7:59 pm Comments DCP- Discharge Planning Updated by [email or web address]: Shivani Francisco on 02/29/20 5:[address] LATE ENTRY 914 PATIENT'S DAUGHTER , ANNITA, CALLED THIS AM. SHE WANTED TO KNOW IF HER FATHER WAS BEING TRANSFERED TO HOSPICE. NO ORDER AT PRESENT. CM ADVISED I WOULD SPEAK WITH THE NURSE AND CALL HER W/ A UPDATE. SHE HAD NO PREFERRED PROVIDER. NO BEDS AVAILABLE FOR GIP AT THE [facility]. CM DISCUSSED W/ CHARGE NURSE IN IDT MEETING. PRIMARY OBTAINED HOSPICE ORDER. TC TO [facility] AND SPOKE W/ DANIEL. REFERRAL FAXED. PATIENT WILL NEED COVID TEST RESULT. AWAIT NURSE VISIT AND MD ASSESSMENT FROM [place]. CM TELEPHONED THE DTR AND PROVIDED A UPDATE. SHE WILL BE COMING TO THE [facility] TO OBTAIN HER FATHER'S BELONGING. CM PROVIDED PRIMARY NURSE W/ POC FORMS FOR DTR SIGNATURE. 145Jasper DREW VISITED FROM [facility] . HE SPOKE WITH THE DAUGHTER. HE WILL REVIEW W/ MD . THE DAUGHTER WILL BE IN THIS LATE PM OR EARLY IN THE AM TO SIGN PAPERWORK. DCP- Discharge Planning Updated by [email or web address]: Louise Perez on 02/28/20 8:[address] CM spoke with daughter Angela this am. [facility] signed for any SNF / LTC facility that will accept him. [place] reached out to [place] with [facility] to see about placement and getting patient to dialysis in [place] if possible. [place] stated that [facility] in [place] has availability. When LOUIS started to upload records for referral LOUIS realized that Dr. Conti had stated that patient was combative and unsafe to dialyze. Dr. Duncan states that patient isn't appropriate for inpatient psych. CM spoke with CM watch supervisor as to what options are left for patient because a SNF will not accept in this condition. CM advised to ask MD if Hospice is an appropriate setting. CM contacted Emi Roberts APN technical solutions director and she stated that Dr. Conti was thinking Hospice because she doesn't plan on dialyzing him d/t his mental status. Emi stated that Dr. Espinosa is technical solutions director now and he could possibly call the family tomorrow and speak to them about Hospice. CM will continue to follow and assist as needed with discharge planning / needs. DCP- Discharge Planning Updated by [id number]: Shivani Francisco on 02/16/20 5:[address] LATE ENTRY CM SPOKE WITH PATIENT'S DAUGHTER, ANNITA THIS EARLY AM. SHE CONFIRMED THE REFERRAL TO [facility] FOR EVALUATION. CLINICAL FAXED TO JULIA FOR REVIEW. CM REC TELEPHONE CALL FROM JULIA Pollock/ [facility]. THEY ARE NOT ACCEPTING ANY DIALYSIS PATIENTS SECONDARY TO COVID 19 ISSUE. JULIA STATES SHE WILL TELL THE PATIENT'S DAUGHTER. DCP- Discharge Planning Updated by [email or web address]: Shivani Francisco on 02/15/20 3:[address] CM RECEIVED A TELEPHONE CALL FROM JULIA Pollock/ [facility]. SHE STATES THE PATIENT'S DAUGHTER, ANNITA, CALLED AND ASK FOR AN EVALUATION. CLINICAL TO BE FAXED TO [phone]. CM ADVISED THE PATIENT IS IN ICU AT THE PRESENT. WILL VERIFY REQUEST W/ THE DAUGHTER. DCP- Discharge Planning Updated by [id number]: Louise Perez on 02/14/20 6:[address] Patient Name: JAVI MORELOS Admission Status: ER Accout number: [id number] Admission Date: 02-06-2020 : 1945 Admission Diagnosis:CELLULITIS OF LEFT LOWER LIMB Attending: MARILUZ RUBY Current LOS: 8 Anticipated DC Date: Planned Disposition: Primary Insurance: MEDICARE A & B Discharge Planning Comments: CM called and spoke with patient's daughter Annita [phone] to complete initial dc planning assessment. CM educated patient on the CM role and verbal consent given by patient to complete assessment. Annita stated that her father is estranged most her life. She stated that he had been living in [facility] for 3-4 yrs but within the last year he had signed himself out and is now living in a camper alone. Patient is independent. He drives himself to dialysis in [place]. Uncertain as to what his discharge needs or disposition. Annita stated that they will get together as a family and make a decision. She stated that she is one of eight children. CM discussed availability of home health, rehab services, and medical equipment. Patient will have family to transport home. Patient denied known discharge needs at this time. CM will continue to follow and will assist as needed with dc plans/needs. Keyboard Specialist: Louise Perez DCPIA - Discharge Planning Initial Assessment Updated by [id number]: Louise Perez on 02/14/20 7:21 pm * Is the patient Alert and Oriented? No * How many steps to enter\exit or inside your home? * PCP [facility] * Pharmacy [facility] * Preadmission Environment Home Alone * ADLs Independent * Equipment None * List name and contact numbers for known caregivers / representatives who currently or will assist patient after discharge: ANNITA NIEVES - DAUGHTER- [phone] MARIA A MORELOS - BROTHER - [phone] * Verbal permission to speak to the caregivers and representatives has been obtained from the patient. N/A * Community resources currently utilized None * Additional services required to return to the preadmission environment? No * Can the patient safely return to the preadmission environment? Yes * Has this patient been hospitalized within the prior 30 days at any hospital? No Last DP export: 02/28/20 8:37 p Patient Name: JAVI MORELOS Page 19249 at 1900 All edits/amendments must be made on the electronic document DICTATION DATE: 02/29/201858 ENROLLER: ZULMA 02/29/201858 RPT#: [id number] DC DATE: STATUS: ADM IN [facility] [address] [place] [address] END OF REPORT
--- NOTE | 2020-02-29 22:08 | NUR ---
PT RESTING IN BED A/O X4 AT THIS TIME. RR EVEN AND UNLABORED. SOB AT TIMES. COLD WATER PROVIDED. NO S/S OF DISTRESS AT THIS TIME. PT DENIES ANY PAIN OR DISCOMFORT. BP-103/59 P-103 O2-94% RR-18 T-98.7. NO S/S OF DISTRESS AT THIS TIME. BED LOW CALL LIGHT WITHIN REACH WILL CONTINUE TO MONITOR.
--- NOTE | 2020-02-29 23:31 | NUR ---
PT AWAKE A/O X4. SOB AT TIMES. O2 4L 93%. NO S/S/ OF DISTRESS AT THIS TIME. VITALS STABLE. BED LOW CALL LIGHT WITHIN REACH. WILL CONTINUE TO MONITOR
[2020-03-01] VITALS: BP 130/68
[2020-03-01 03:00] VITALS: BP 114/56
[2020-03-01 04:29] LABS: ANION GAP 13.3 mmol/L (8-16); CALCIUM 9.1 mg/dL (8.5-10.1); CARBON DIOXIDE 28.6 mmol/L (21.0-32.0); CREATININE - SERUM 5.9 mg/dL (0.6-1.3); HEMATOCRIT 30.4 % (42.0-54.0); HEMOGLOBIN 9.3 g/dL (13.5-17.5); LYMPHOCYTES 10.7 % (15-50); MCH 31.5 pg (26.0-34.0); MCHC 30.6 g/dL (31.0-37.0); MCV 103.1 fL (80.0-100.0); MEAN PLATELET VOLUME 9.8 fL (7.4-10.4); NEUTROPHILS 79.2 % (40-80); PLATELET COUNT 247 10x3/uL (130-400); POTASSIUM - SERUM 3.9 mmol/L (3.5-5.1); RBC 2.95 10x6/uL (4.20-6.10); RDW 17.4 % (11.5-14.5); WBC 9.8 10x3/uL (4.8-10.8)
[2020-03-01 05:00] VITALS: BP 109/62
[2020-03-01 07:00] VITALS: BP 107/70
--- NOTE | 2020-03-01 07:10 | NUR ---
REPORT RECEIVED FROM OFF GOING NURSE AND PATIENT CARE ASSUMED. PATIENT LAYING IN BED ON BACK WITH EYES CLOSED AND BREATHING EVENLY. VSS. NO RESTRAINTS IN USE. KWILL CONTINUE WITH PLAN OF CARE. SR UP X 2 BED IN LOW POSITION AND CALL LIGHT IN REACH.
--- NOTE | 2020-03-01 09:00 | NUR ---
PATIENT LAYING IN BED AWAKE, ALERT AND ORIENTED TO NAME ONLY. PATIENT DENIES ANY NEEDS OR PAIN. O2 PER NC. VSS. PATIENT CONSUMED 50% OF BREAKFAST. REPOSTIONED FOR COMFORT. ASSESSMENT COMPLETED. WILL CONTINUE TO MONITOR. BED ALARM TURNED ON. SR UP X 2 BED IN LOW POSITION AND CALL LIGHT IN REACH.
--- NOTE | 2020-03-01 12:30 | NUR ---
CALLED REPORT TO KIMMY GONZALEZ AT THIS TIME,
--- NOTE | 2020-03-01 12:42 | MORECARE ---
CASE MANAGEMENT DISCHARGE SUMMARY PATIENT: JAVI MORELOS UNIT: [id number] ADM DATE: 02/06/20 AGE: 74 : 44 SEX: M ROOM/BED: D.2303 AUTHOR: PATRIZIADOC PHYSICIAN: REFERRING PHYSICIAN: MARILUZ RUBY MD DATE OF SERVICE: 03/01/20 Discharge Plan Patient Name: JAVI MORELOS [facility] : 1945 Planned Disposition: Facility for hospice services Anticipated Discharge Date: 03/01/20 Discharge Date: Expected LOS: 24 Initial Reviewer: [email or web address] Initial Review Date: 02/06/2020 Generated: 03/01/20 1:41 pm Comments DCP- Discharge Planning Updated by [id number]: Shivani Francisco on 02/29/20 5:[address] LATE ENTRY 0915 PATIENT'S DAUGHTER , ANNITA, CALLED THIS AM. SHE WANTED TO KNOW IF HER FATHER WAS BEING TRANSFERED TO HOSPICE. NO ORDER AT PRESENT. CM ADVISED I WOULD SPEAK WITH THE NURSE AND CALL HER W/ A UPDATE. SHE HAD NO PREFERRED PROVIDER. NO BEDS AVAILABLE FOR GIP AT [facility]. CM DISCUSSED W/ CHARGE NURSE IN IDT MEETING. PRIMARY OBTAINED HOSPICE ORDER. TC TO [facility] AND SPOKE W/ DANIEL. REFERRAL FAXED. PATIENT WILL NEED COVID TEST RESULT. AWAIT NURSE VISIT AND MD ASSESSMENT FROM [place]. CM TELEPHONED THE DTR AND PROVIDED A UPDATE. SHE WILL BE COMING TO [facility] TO OBTAIN HER FATHER'S BELONGING. CM PROVIDED PRIMARY NURSE W/ POC FORMS FOR DTR SIGNATURE. 1452 VIKI VISITED FROM [facility] . HE SPOKE WITH THE DAUGHTER. HE WILL REVIEW W/ MD . THE DAUGHTER WILL BE IN THIS LATE PM OR EARLY IN THE AM TO SIGN PAPERWORK. DCP- Discharge Planning Updated by [email or web address]: Louise Perez on 02/28/20 8:[address] CM spoke with daughter Angela this am. [facility] signed for any SNF / LTC facility that will accept him. LOUIS reached out to [place] with [facility] to see about placement and getting patient to dialysis in [place] if possible. [place] stated that [facility] in [place] has availability. When CM started to upload records for referral CM realized that Dr. Conti had stated that patient was combative and unsafe to dialyze. Dr. Duncan states that patient isn't appropriate for inpatient psych. CM spoke with CM bailer operators supervisor as to what options are left for patient because a SNF will not accept in this condition. CM advised to ask MD if Hospice is an appropriate setting. CM contacted Emi Roberts JACKIE instrument and control technician and she stated that Dr. Conti was thinking Hospice because she doesn't plan on dialyzing him d/t his mental status. Emi stated that Dr. Espinosa is instrument and control technician now and he could possibly call the family tomorrow and speak to them about Hospice. CM will continue to follow and assist as needed with discharge planning / needs. DCP- Discharge Planning Updated by [id number]: Shivani Francisco on 02/16/20 5:[address] LATE ENTRY CM SPOKE WITH PATIENT'S DAUGHTER, ANNITA THIS EARLY AM. SHE CONFIRMED THE REFERRAL TO [facility] FOR [facility]ALUATION. CLINICAL FAXED TO JULIA FOR REVIEW. CM REC TELEPHONE CALL FROM JULIA Pollock/ [facility]. THEY ARE NOT ACCEPTING ANY DIALYSIS PATIENTS SECONDARY TO COVID 19 ISSUE. JULIA STATES SHE WILL TELL THE PATIENT'S DAUGHTER. DCP- Discharge Planning Updated by [email or web address]: Shivani Francisco on 02/15/20 3:[address] CM RECEIVED A TELEPHONE CALL FROM JULIA Pollock/ [facility]. SHE STATES THE PATIENT'S DAUGHTER, ANNITA, CALLED AND ASK FOR AN EVALUATION. CLINICAL TO BE FAXED TO [phone]. CM ADVISED THE PATIENT IS IN ICU AT THE PRESENT. WILL VERIFY REQUEST W/ THE DAUGHTER. DCP- Discharge Planning Updated by [email or web address]: Louise Perez on 02/14/20 6:[address] Patient Name: JAVI MORELOS Admission Status: ER Accout number: [id number] Admission Date: 02-06-2020 : 1945 Admission Diagnosis:CELLULITIS OF LEFT LOWER LIMB Attending: MARILUZ RUBY Current LOS: 8 Anticipated DC Date: Planned Disposition: Primary Insurance: MEDICARE A & B Discharge Planning Comments: CM called and spoke with patient's daughter Annita [phone] to complete initial dc planning assessment. CM educated patient on the CM role and verbal consent given by patient to complete assessment. Annita stated that her father is estranged most her life. She stated that he had been living in [facility] for 3-4 yrs but within the last year he had signed himself out and is now living in a camper alone. Patient is independent. He drives himself to dialysis in [facility]. Uncertain as to what his discharge needs or disposition. Annita stated that they will get together as a family and make a decision. She stated that she is one of eight children. CM discussed availability of home health, rehab services, and medical equipment. Patient will have family to transport home. Patient denied known discharge needs at this time. CM will continue to follow and will assist as needed with dc plans/needs. Sign Wirer: Louise Perez DCPIA - Discharge Planning Initial Assessment Updated by [email or web address]: Louise Perez on 02/14/20 7:21 pm * Is the patient Alert and Oriented? No * How many steps to enter\exit or inside your home? * PCP [facility] * Pharmacy [facility] * Preadmission Environment Home Alone * ADLs Independent * Equipment None * List name and contact numbers for known caregivers / representatives who currently or will assist patient after discharge: ANNITA NIEVES - DAUGHTER- [phone] MARIA A MORELOS - BROTHER - [phone] * Verbal permission to speak to the caregivers and representatives has been obtained from the patient. N/A * Community resources currently utilized None * Additional services required to return to the preadmission environment? No * Can the patient safely return to the preadmission environment? Yes * Has this patient been hospitalized within the prior 30 days at any hospital? No Last DP export: 02/29/20 6:00 p Patient Name: JAVI MORELOS Page 20479 at 1242 All edits/amendments must be made on the electronic document DICTATION DATE: 03/01/20 1242 NON EMERGENCY SERVICES AMBULANCE DRIVER: ZULMA 03/01/20 1242 RPT#: [id number] DC DATE: STATUS: ADM IN [facility] [address] [place] [address] END OF REPORT
--- NOTE | 2020-03-01 12:50 | MORECARE ---
CASE MANAGEMENT DISCHARGE SUMMARY PATIENT: JAVI MORELOS UNIT: [id number] ADM DATE: 02/06/20 AGE: 74 : 44 SEX: M ROOM/BED: D.2303 AUTHOR: JORGE LUIS ACHARYA PHYSICIAN: REFERRING PHYSICIAN: MARILUZ RUBY MD DATE OF SERVICE: 03/01/20 Discharge Plan Patient Name: JAVI MORELOS Facility: [facility]:[place] : 1945 Planned Disposition: Facility for hospice services Anticipated Discharge Date: 03/01/20 Discharge Date: Expected LOS: 24 Initial Reviewer: [email or web address] Initial Review Date: 02/06/2020 Generated: 03/01/20 1:49 pm Comments DCP- Discharge Planning Updated by [id number]: Shivani Francisco on 03/01/20 11:[address] REC TELEPHONE MESSAGE FROM VIKI THIS AM. THE PATIENT HAS BEEN ACCEPTED TO [facility]. LOUIS SPOKE W/ FELTON ELLISON AT THE UNIT. PATIENT HAS BEEN ACCEPTED BY DR JAVI WEISS. ASSIGNED TO ROOM 558. REPORT TO BE CALLED TO [phone]. ACCEPTING NURSE IS KIMMY GONZALEZ. [place] ADVISED THE PATIENT'S NURSE. DCP- Discharge Planning Updated by [id number]: Shivani Francisco on 02/29/20 5:[address] LATE ENTRY 0915 PATIENT'S DAUGHTER , ANNITA, CALLED THIS AM. SHE WANTED TO KNOW IF HER FATHER WAS BEING TRANSFERED TO HOSPICE. NO ORDER AT PRESENT. [place] ADVISED I WOULD SPEAK WITH THE NURSE AND CALL HER W/ A UPDATE. SHE HAD NO PREFERRED PROVIDER. NO BEDS AVAILABLE FOR GIP AT [facility]. CM DISCUSSED W/ CHARGE NURSE IN IDT MEETING. PRIMARY OBTAINED HOSPICE ORDER. TC TO [facility] AND SPOKE W/ DANIEL. REFERRAL FAXED. PATIENT WILL NEED COVID TEST RESULT. AWAIT NURSE VISIT AND MD ASSESSMENT FROM [place]. [place] TELEPHONED THE DTR AND PROVIDED A UPDATE. SHE WILL BE COMING TO [facility] TO OBTAIN HER FATHER'S BELONGING. LOUIS PROVIDED PRIMARY NURSE W/ POC FORMS FOR DTR SIGNATURE. 5463 VIKI VISITED FROM [facility] . HE SPOKE WITH THE DAUGHTER. HE WILL REVIEW W/ MD . THE DAUGHTER WILL BE IN THIS LATE PM OR EARLY IN THE AM TO SIGN PAPERWORK. DCP- Discharge Planning Updated by [email or web address]: Louisejatin Estevezr on 02/28/20 8:[address] CM spoke with daughter Angela this am. [facility] signed for any SNF / LTC facility that will accept him. CM reached out to [place] with [facility] to see about placement and getting patient to dialysis in [place] if possible. [place] stated that [facility] in [place] has availability. When CM started to upload records for referral CM realized that Dr. Conti had stated that patient was combative and unsafe to dialyze. Dr. Duncan states that patient isn't appropriate for inpatient psych. CM spoke with CM packing house supervisor as to what options are left for patient because a SNF will not accept in this condition. CM advised to ask MD if Hospice is an appropriate setting. CM contacted Emi Alejandra MEJIA gas station cashier and she stated that Dr. Conti was thinking Hospice because she doesn't plan on dialyzing him d/t his mental status. Emi stated that Dr. Espinosa is gas station cashier now and he could possibly call the family tomorrow and speak to them about Hospice. CM will continue to follow and assist as needed with discharge planning / needs. DCP- Discharge Planning Updated by [id number]: Shivani Francisco on 02/16/20 5:[address] LATE ENTRY CM SPOKE WITH PATIENT'S DAUGHTER, ANNITA THIS EARLY AM. SHE CONFIRMED THE REFERRAL TO [facility] FOR EVALUATION. CLINICAL FAXED TO JULIA FOR REVIEW. CM REC TELEPHONE CALL FROM JULIA Pollock/ [facility]. THEY ARE NOT ACCEPTING ANY DIALYSIS PATIENTS SECONDARY TO COVID 19 ISSUE. JULIA STATES SHE WILL TELL THE PATIENT'S DAUGHTER. DCP- Discharge Planning Updated by [email or web address]: Shivani Francisco on 02/15/20 3:[address] CM RECEIVED A TELEPHONE CALL FROM JULIA Pollock/ [facility]. SHE STATES THE PATIENT'S DAUGHTER, ANNITA, CALLED AND ASK FOR AN EVALUATION. CLINICAL TO BE FAXED TO [phone]. CM ADVISED THE PATIENT IS IN ICU AT THE PRESENT. WILL VERIFY REQUEST W/ THE DAUGHTER. DCP- Discharge Planning Updated by [id number]: Louise Estevezr on 02/14/20 6:[address] Patient Name: JAVI MORELOS Admission Status: ER Accout number: [id number] Admission Date: 02-06-2020 : 1945 Admission Diagnosis:CELLULITIS OF LEFT LOWER LIMB Attending: MARILUZ RUBY Current LOS: 8 Anticipated DC Date: Planned Disposition: Primary Insurance: MEDICARE A & B Discharge Planning Comments: CM called and spoke with patient's daughter Annita [phone] to complete initial dc planning assessment. CM educated patient on the CM role and verbal consent given by patient to complete assessment. Annita stated that her father is estranged most her life. She stated that he had been living in [facility] for 3-4 yrs but within the last year he had signed himself out and is now living in a camper alone. Patient is independent. He drives himself to dialysis in [facility]. Uncertain as to what his discharge needs or disposition. Annita stated that they will get together as a family and make a decision. She stated that she is one of eight children. CM discussed availability of home health, rehab services, and medical equipment. Patient will have family to transport home. Patient denied known discharge needs at this time. CM will continue to follow and will assist as needed with dc plans/needs. Cleaning Associate: Louise Perez DCPIA - Discharge Planning Initial Assessment Updated by [id number]: Louise Perez on 02/14/20 7:21 pm * Is the patient Alert and Oriented? No * How many steps to enter\exit or inside your home? * PCP [facility] * Pharmacy [facility] * Preadmission Environment Home Alone * ADLs Independent * Equipment None * List name and contact numbers for known caregivers / representatives who currently or will assist patient after discharge: ANNITA NIEVES - DAUGHTER- [phone] MARIA A MORELOS - BROTHER - [phone] * Verbal permission to speak to the caregivers and representatives has been obtained from the patient. N/A * Community resources currently utilized None * Additional services required to return to the preadmission environment? No * Can the patient safely return to the preadmission environment? Yes * Has this patient been hospitalized within the prior 30 days at any hospital? No Last DP export: 03/01/20 11:42 a Patient Name: JAVI MORELOS Page 22064 at 1250 All edits/amendments must be made on the electronic document DICTATION DATE: 03/01/201248 CRANE ENGINEER: ZULMA 03/01/209 RPT#: [id number] DC DATE: STATUS: ADM IN [facility] [address] [place] [address] END OF REPORT
--- NOTE | 2020-03-01 13:20 | NUR ---
AMBULANCE HERE FOR PT
--- NOTE | 2020-03-01 17:37 | MORECARE ---
CASE MANAGEMENT DISCHARGE SUMMARY PATIENT: JAVI MORELOS UNIT: [id number] ADM DATE: 02/06/20 AGE: 74 : 44 SEX: M ROOM/BED: D.2303 AUTHOR: PATRIZIA,DOC PHYSICIAN: REFERRING PHYSICIAN: MARILUZ RUBY MD DATE OF SERVICE: 03/01/20 Discharge Plan Patient Name: JAVI MORELOS Facility: [facility]:[place] : 1945 Planned Disposition: Facility for hospice services Anticipated Discharge Date: 03/01/20 Discharge Date: 03/01/2020 Expected LOS: 24 Initial Reviewer: [id number] Initial Review Date: 02/06/2020 Generated: 03/01/20 6:37 pm Comments DCP- Discharge Planning Updated by [email or web address]: Shivani Francisco on 03/01/20 4:[address] DISCHARGED TO [facility] VIA AMBULANCE. PRIMARY NURSE CALLED REPORT TO KIMMY GONZALEZ. DCP- Discharge Planning Updated by [email or web address]: Shivani Francisco on 03/01/20 11:[address] REC TELEPHONE MESSAGE FROM VIKI THIS AM. THE PATIENT HAS BEEN ACCEPTED TO [facility]. CM SPOKE W/ FELTON ELILSON AT THE UNIT. PATIENT HAS BEEN ACCEPTED BY DR JAVI WEISS. ASSIGNED TO ROOM 558. REPORT TO BE CALLED TO [phone]. ACCEPTING NURSE IS KIMMY GONZALEZ. CM ADVISED THE PATIENT'S NURSE. DCP- Discharge Planning Updated by [id number]: Shivani Francisco on 02/29/20 5:[address] LATE ENTRY 0915 PATIENT'S DAUGHTER , ANNITA, CALLED THIS AM. SHE WANTED TO KNOW IF HER FATHER WAS BEING TRANSFERED TO HOSPICE. NO ORDER AT PRESENT. CM ADVISED I WOULD SPEAK WITH THE NURSE AND CALL HER W/ A UPDATE. SHE HAD NO PREFERRED PROVIDER. NO BEDS AVAILABLE FOR GIP AT [facility]. CM DISCUSSED W/ CHARGE NURSE IN IDT MEETING. PRIMARY OBTAINED HOSPICE ORDER. TC TO [facility] AND SPOKE W/ DANIEL. REFERRAL FAXED. PATIENT WILL NEED COVID TEST RESULT. AWAIT NURSE VISIT AND MD ASSESSMENT FROM [place]. [place] TELEPHONED THE DTR AND PROVIDED A UPDATE. SHE WILL BE COMING TO [facility] TO OBTAIN HER FATHER'S BELONGING. CM PROVIDED PRIMARY NURSE W/ POC FORMS FOR DTR SIGNATURE. 1452 VIKI VISITED FROM [facility] . HE SPOKE WITH THE DAUGHTER. HE WILL REVIEW W/ MD . THE DAUGHTER WILL BE IN THIS LATE PM OR EARLY IN THE AM TO SIGN PAPERWORK. DCP- Discharge Planning Updated by [id number]: Louise Perez on 02/28/20 8:[address] CM spoke with daughter Angela this am. [facility] signed for any SNF / LTC facility that will accept him. CM reached out to [place] with [facility] to see about placement and getting patient to dialysis in [place] if possible. [place] stated that [facility] in [place] has availability. When CM started to upload records for referral CM realized that Dr. Conti had stated that patient was combative and unsafe to dialyze. Dr. Duncan states that patient isn't appropriate for inpatient psych. CM spoke with CM supervisor food checkers and cashiers as to what options are left for patient because a SNF will not accept in this condition. CM advised to ask MD if Hospice is an appropriate setting. CM contacted Emi Roberts APN automotive service professional and she stated that Dr. Conti was thinking Hospice because she doesn't plan on dialyzing him d/t his mental status. Emi stated that Dr. Espinosa is automotive service professional now and he could possibly call the family tomorrow and speak to them about Hospice. CM will continue to follow and assist as needed with discharge planning / needs. DCP- Discharge Planning Updated by [email or web address]: Shivani Francisco on 02/16/20 5:[address] LATE ENTRY CM SPOKE WITH PATIENT'S DAUGHTER, ANNITA THIS EARLY AM. SHE CONFIRMED THE REFERRAL TO [facility] FOR EVALUATION. CLINICAL FAXED TO JULIA FOR REVIEW. CM REC TELEPHONE CALL FROM JULIA Pollock/ [facility]. THEY ARE NOT ACCEPTING ANY DIALYSIS PATIENTS SECONDARY TO COVID 19 ISSUE. JULIA STATES SHE WILL TELL THE PATIENT'S DAUGHTER. DCP- Discharge Planning Updated by [id number]: Shivani Francisco on 02/15/20 3:[address] CM RECEIVED A TELEPHONE CALL FROM JULIA Pollock/ [facility]. SHE STATES THE PATIENT'S DAUGHTER, ANNITA, CALLED AND ASK FOR AN EVALUATION. CLINICAL TO BE FAXED TO [phone]. CM ADVISED THE PATIENT IS IN ICU AT THE PRESENT. WILL VERIFY REQUEST W/ THE DAUGHTER. DCP- Discharge Planning Updated by [id number]: Louise Furr on 02/14/20 6:[address] Patient Name: JAVI MORELOS Admission Status: ER Accout number: [id number] Admission Date: 02-06-2020 : 1945 Admission Diagnosis:CELLULITIS OF LEFT LOWER LIMB Attending: MARILUZ RUBY Current LOS: 8 Anticipated DC Date: Planned Disposition: Primary Insurance: MEDICARE A & B Discharge Planning Comments: CM called and spoke with patient's daughter Annita [phone] to complete initial dc planning assessment. CM educated patient on the CM role and verbal consent given by patient to complete assessment. Annita stated that her father is estranged most her life. She stated that he had been living in [place] [facility] [place] for 3-4 yrs but within the last year he had signed himself out and is now living in a camper alone. Patient is independent. He drives himself to dialysis in [facility]. Uncertain as to what his discharge needs or disposition. Annita stated that they will get together as a family and make a decision. She stated that she is one of eight children. CM discussed availability of home health, rehab services, and medical equipment. Patient will have family to transport home. Patient denied known discharge needs at this time. CM will continue to follow and will assist as needed with dc plans/needs. Finished Metal Repairer: Louise Perez DCPIA - Discharge Planning Initial Assessment Updated by [id number]: Louise Chris on 02/14/20 7:21 pm * Is the patient Alert and Oriented? No * How many steps to enter\exit or inside your home? * PCP [facility] * Pharmacy [facility] * Preadmission Environment Home Alone * ADLs Independent * Equipment None * List name and contact numbers for known caregivers / representatives who currently or will assist patient after discharge: ANNITA NIEVES - DAUGHTER- [phone] MARIA A MORELOS - BROTHER - [phone] * Verbal permission to speak to the caregivers and representatives has been obtained from the patient. N/A * Community resources currently utilized None * Additional services required to return to the preadmission environment? No * Can the patient safely return to the preadmission environment? Yes * Has this patient been hospitalized within the prior 30 days at any hospital? No Last DP export: 03/01/20 11:50 a Patient Name: JAVI MORELOS Page [id number] at 1737 All edits/amendments must be made on the electronic document DICTATION DATE: 03/01/201736 CLAM GRADER: ZULMA 03/01/201736 RPT#: [id number] DC DATE:03/01/20 STATUS: DIS IN [facility] [address] [place] [address] END OF REPORT
== END 2020-03-01 13:20 | disposition home health service (06) | DRG 270 ==
LOC: D.ER 10:26 → D.ICU 14:00
PROVIDERS: Family Medicine; Internal Medicine; Internal Medicine Nephrology; Internal Medicine Pulmonary Disease; Radiology Vascular & Interventional Radiology; ADMIT Internal Medicine Nephrology; ATTEND Internal Medicine Nephrology
PROC: 047L3ZZ Dilation of Left Femoral Artery, Percutaneous Approach (ICD-10-PCS; 2020-02-09)
PROC: 5A1955Z Respiratory Ventilation, Greater than 96 Consecutive Hours (ICD-10-PCS; 2020-02-09)
PROC: 0BH17EZ Insertion of Endotracheal Airway into Trachea, Via Natural or Artificial Opening (ICD-10-PCS; 2020-02-09)
PROC: 04CL3ZZ Extirpation of Matter from Left Femoral Artery, Percutaneous Approach (ICD-10-PCS; principal; 2020-02-09 14:00)
PROC: 05HM33Z Insertion of Infusion Device into Right Internal Jugular Vein, Percutaneous Approach (ICD-10-PCS; 2020-02-11)
PROC: 0B9F8ZX Drainage of Right Lower Lung Lobe, Via Natural or Artificial Opening Endoscopic, Diagnostic (ICD-10-PCS; 2020-02-14)
DX: I70.292 Other atherosclerosis of native arteries of extremities, left leg (principal); N18.6 End stage renal disease; I50.23 Acute on chronic systolic (congestive) heart failure; I21.A1 Myocardial infarction type 2; J96.01 Acute respiratory failure with hypoxia; G93.41 Metabolic encephalopathy; J15.1 Pneumonia due to Pseudomonas; L03.116 Cellulitis of left lower limb; I13.2 Hypertensive heart and chronic kidney disease with heart failure and with stage 5 chronic kidney disease, or end stage renal disease; I48.20 Chronic atrial fibrillation, unspecified; I48.4 Atypical atrial flutter; D68.59 Other primary thrombophilia; L03.115 Cellulitis of right lower limb; E11.22 Type 2 diabetes mellitus with diabetic chronic kidney disease; E11.65 Type 2 diabetes mellitus with hyperglycemia; I99.8 Other disorder of circulatory system; D69.6 Thrombocytopenia, unspecified; I77.1 Stricture of artery; I95.9 Hypotension, unspecified; F32.9 Major depressive disorder, single episode, unspecified; M19.90 Unspecified osteoarthritis, unspecified site; N40.0 Benign prostatic hyperplasia without lower urinary tract symptoms; E78.5 Hyperlipidemia, unspecified; R53.81 Other malaise; I25.10 Atherosclerotic heart disease of native coronary artery without angina pectoris